=== PATIENT | female | born 1945 | race Caucasian/White ===

== ENCOUNTER 2016-07-11 16:26 | Inpatient (IN) | payer MEDICARE, MEDICAID ==
[~2016-07-11] VITALS: Ht 167.6 cm; Wt 60.1 kg
[~2016-07-11 16:26] MED LIST: /PANT40TA PO; /SUCR1TA PO; /WARF5TA OR; CALCTAB22 PO; CARV6.25 OR; FURO40TA2 OR; IRON28TA PO; LEVOXYL25 MCG OR; NEUR100C OR; PERC5TAB8 PO; VITAMIN B12 INJ IM
[2016-07-11] MEDS ORDERED: MULT1TAB10 PO (16:58)
[2016-07-11] MEDS ORDERED: MIDO25TA PO (16:58)
[2016-07-11] MEDS ORDERED: PLAV75TA38 PO (16:58)
[2016-07-11] MEDS ORDERED: SYNT112T2 PO (16:58)
[2016-07-11] MEDS ORDERED: VITA200028 PO (16:58)
[2016-07-11] MEDS ORDERED: ZOCO10TA PO (16:58)
[2016-07-11] MEDS ORDERED: NITR4TASL SL (16:58)
[2016-07-11] MEDS ORDERED: FERR325T3 PO (16:58)
[2016-07-11] MEDS ORDERED: [UNRECOGNIZED DRUG - CODE] PO (16:58)
[2016-07-11] MEDS ORDERED: LASI20TA PO (16:58)
[2016-07-11 19:33] LABS: BASO % 0.4 % (0.0-1.0); EOS # 0.1 K/mm3 (0.0-0.50); EOS % 0.9 % (0.0-3.0); LARGE UNSTAINED CELL # 0.1 K/mm3 (0.0-0.4); LARGE UNSTAINED CELL % 0.8 % (0.0-4.0); LYMPH # 1.6 K/mm3 (1.5-4.5); LYMPH % 14.1 % (24.0-44.0); MEAN CORPUSCULAR HEMOGLOBIN 31.3 pg (27.0-33.0); MEAN CORPUSCULAR HGB CONC 29.9 g/dl (32.0-36.5); MEAN CORPUSCULAR VOLUME 104.5 fl (80.0-96.0); MONO # 0.5 K/mm3 (0.0-0.8); MONO % 4.1 % (0.0-5.0); NEUTROPHILS # 8.8 K/mm3 (1.8-7.7); NEUTROPHILS % 79.8 % (36.0-66.0); PLATELET COUNT, AUTOMATED 234 k/mm3 (150-450); RED CELL DISTRIBUTION WIDTH 14.7 % (11.5-14.5)
[2016-07-11 19:55] LABS: ALBUMIN 1.6 GM/DL (3.2-5.2); ALBUMIN/GLOBULIN RATIO 0.57 (1.00-1.93); ALKALINE PHOSPHATASE 146 U/L (45-117); ALT/SGPT 34 U/L (12-78); ANION GAP 8 MEQ/L (8-16); AST/SGOT 21 U/L (15-37); BILIRUBIN,DIRECT 0.2 MG/DL (0.0-0.2); BILIRUBIN,TOTAL 0.5 MG/DL (0.2-1.0); BLOOD UREA NITROGEN 27 MG/DL (7-18); CALCIUM LEVEL 7.4 MG/DL (8.8-10.2); CARBON DIOXIDE LEVEL 20 MEQ/L (21-32); CHLORIDE LEVEL 116 MEQ/L (98-107); CREATININE FOR GFR 1.84 MG/DL (0.55-1.02); GLUCOSE, FASTING 68 MG/DL (80-110); POTASSIUM SERUM 4.4 MEQ/L (3.5-5.1); SODIUM LEVEL 144 MEQ/L (136-145); TOTAL PROTEIN 4.4 GM/DL (6.4-8.2)
[2016-07-11] MEDS ORDERED: BISACODYL 10 MG SUPP PR PRN (21:30)
[2016-07-11] MEDS ORDERED: ONDANSETRON 4MG/2ML VIAL (J2405) IV PRN (21:30)
[2016-07-11] MEDS ORDERED: ASPI81TAEC PO (21:47)
[2016-07-11] MEDS ORDERED: PANT40TA2 PO (21:47)
[2016-07-11] MEDS ORDERED: BACI500O74 EXT (21:47)
[2016-07-11] MEDS ORDERED: OXYC1TAB23 PO (21:47)
[2016-07-11] MEDS ORDERED: FOLI1TAB2 PO (21:47)
[2016-07-11] MEDS ORDERED: VITMTA PO (21:47)
[2016-07-11] MEDS ORDERED: PROC1INJ5 INJ (21:47)
[2016-07-11] MEDS ORDERED: CALCTAB52 PO (21:47)
[2016-07-11] MEDS ORDERED: GABA-282 PO (21:47)
[2016-07-11] MEDS ORDERED: SENN8.6C PO (21:47)
[2016-07-11] MEDS ORDERED: CYAN1000VL IM (21:47)
[2016-07-11] MEDS ORDERED: SUCR1TAB56 PO (21:47)
[2016-07-11 22:45] VITALS: BP 98/50
[2016-07-11] MEDS: PERCOCET 5MG/325MG TAB PO PRN (23:32)
[2016-07-12] MEDS: FUROSEMIDE injection 250 MG in D5W 225 ML IV SCH ×2 (00:09→21:08)
[2016-07-12] MEDS: LEVOTHYROXINE 0.112 MG TAB (112 MCG) PO SCH (05:43)
[2016-07-12] MEDS: PERCOCET 5MG/325MG TAB PO PRN ×2 (05:43→16:22)
[2016-07-12 07:01] LABS: BASO % 0.3 % (0.0-1.0); EOS # 0.1 K/mm3 (0.0-0.50); LARGE UNSTAINED CELL # 0.1 K/mm3 (0.0-0.4); LYMPH % 17.2 % (24.0-44.0); MEAN CORPUSCULAR HEMOGLOBIN 31.9 pg (27.0-33.0); MEAN CORPUSCULAR HGB CONC 31.2 g/dl (32.0-36.5); MEAN CORPUSCULAR VOLUME 102.4 fl (80.0-96.0); MONO # 0.5 K/mm3 (0.0-0.8); MONO % 4.6 % (0.0-5.0); NEUTROPHILS # 8.3 K/mm3 (1.8-7.7); NEUTROPHILS % 75.8 % (36.0-66.0); PLATELET COUNT, AUTOMATED 213 k/mm3 (150-450); RED CELL DISTRIBUTION WIDTH 14.8 % (11.5-14.5)
[2016-07-12 07:22] LABS: CALCIUM LEVEL 7.2 MG/DL (8.8-10.2); CREATININE FOR GFR 1.77 MG/DL (0.55-1.02); GLOMERULAR FILTRATION RATE 30.3 (>45); MAGNESIUM LEVEL 1.7 MG/DL (1.8-2.4); PHOSPHORUS LEVEL 3.3 MG/DL (2.5-4.9); POTASSIUM SERUM 4.1 MEQ/L (3.5-5.1)
[2016-07-12] MEDS ORDERED: SUCRALFATE 1 GM TAB PO SCH (07:30)
[2016-07-12 08:35] VITALS: BP 114/53
[2016-07-12] MEDS: GABAPENTIN 300 MG CAP PO SCH ×2 (08:38→21:07)
[2016-07-12] MEDS: ASPIRIN 81 MG ENTERIC TAB PO SCH (08:38)
[2016-07-12] MEDS: MAGNESIUM OXIDE 400 MG TAB (MAG-OX) PO SCH (08:38)
[2016-07-12] MEDS: PANTOPRAZOLE 40MG TAB (PROTONIX) PO SCH (08:38)
[2016-07-12] MEDS: CLOPIDOGREL 75 MG TAB PO SCH (08:38)
[2016-07-12] MEDS: FOLIC ACID 1 MG TAB PO SCH (08:39)
[2016-07-12] MEDS: POTASSIUM CHLORIDE 10 MEQ SR TABLET PO SCH (08:39)
[2016-07-12] MEDS: SENOKOT S TAB PO SCH ×2 (08:39→21:07)
[2016-07-12] MEDS: HEPARIN SOD (PORCINE) 5000 UNITS/ML VIAL SC SCH ×2 (08:39→21:07)
[2016-07-12] MEDS: MIDODRINE 2.5 MG TAB PO SCH ×3 (08:40→16:26)
[2016-07-12] MEDS ORDERED: MIDODRINE 2.5 MG TAB PO SCH (09:00)
[2016-07-12] MEDS ORDERED: FERROUS SULFATE 325MG TAB PO SCH (09:00)
--- NOTE | 2016-07-12 09:20 | HPE ---
DATE OF ADMISSION: 07/11/2016 PRIMARY CARE PROVIDER: Dr. Taz Echols STUDENT TRUCK DRIVER: Dr. Mann CHIEF COMPLAINT: Increasing generalized swelling and gaining 30 pounds weight over the past 3 weeks. PAST MEDICAL HISTORY: 1. Chronic kidney disease (CKD) stage III. 2. History of morbid obesity status post gastric bypass surgery twice in 2006 and 2007. 3. History of diabetes, now resolved after loss of weight. 4. Chronic hypotension on midodrine. 5. Chronic back pain. 6. Scoliosis. 7. Osteoporosis. 8. Spinal canal stenosis. 9. Coronary artery disease status post stents times two. 10. History of congestive heart failure and later cardiomyopathy. 11. Hypothyroid. 12. Hyperlipidemia. 13. Chronic anemia. HISTORY OF PRESENT ILLNESS: This is a 71-year-old female who was admitted to [facility] in June for dizziness, lightheadedness possibly related to her low blood pressure and discharged from the hospital on 06/29/2016. During the hospitalization, her diuretics were stopped because of low blood pressure and she went home without any diuretics. She started gaining fluid and her legs started swelling up. So she called her primary care provider and was restarted on low dose of Lasix 20 mg daily. However, she continued to gain weight and become more swollen with swelling involving not only her legs but her arms, fingers as well as face. Today, she went to see her passenger interline clerk, Dr. Mann and was found to have gained 30 pounds of weight over the past 3 weeks. So the patient was sent to the emergency room for evaluation. In the emergency department (ED), patient was found to have anasarca with usually edema of the legs, which has been causing her difficulty walking, causing her increased back pain. Patient was also noted to have a creatinine 1.8, which was elevated from her baseline of around 1.4 to 1.5. So the patient is being admitted for anasarca, acute kidney injury (MARTINA) and CKD, and possible congestive heart failure. PAST SURGICAL HISTORY: 1. Cardiac stents times two. 2. Gastric bypass surgery times two in 2006 and 2007. 3. Right ovarian cystectomy, exploratory laparotomy in 1970s. 4. Appendectomy in 1969's. 5. Tonsillectomy. 6. Bilateral lower leg stents. 7. Left shoulder rotator cuff repair. 8. Left carpal tunnel surgery. 9. Open reduction, internal fixation (ORIF) of left wrist. 10. Left hip replacement. 11. Left femur surgery. 12. Left knee replacement. 13. ORIF of left ankle. 14. ORIF of right wrist. SOCIAL HISTORY: Ex-smoker, quit about 10 years ago. No history of alcohol or drug abuse. ALLERGIES: To LATEX. HOME MEDICATIONS: - aspirin 81 mg daily - clopidogrel 75 mg daily - cyanocobalamin 1000 mcg once a month - calcium with vitamin D 1 tablet by mouth twice a day - ergocalciferol 2000 units by mouth daily - Procrit 10,000 units once a month - ferrous sulfate 325 mg by mouth twice a day - folic acid 1 mg by mouth daily - Lasix 20 mg daily - gabapentin 300 mg by mouth twice a day - Synthroid 112 mcg by mouth daily - midodrine 2.5 mg by mouth daily - multivitamins 1 tablet by mouth twice a day - nitroglycerin 0.4 mg sublingual as needed, angina - oxycodone/acetaminophen 5/325 1 tablet by mouth twice a day as needed, pain - pantoprazole 40 mg by mouth daily - Zemplar 1 mcg by mouth daily - senna 2 capsules by mouth daily - simvastatin 10 mg by mouth at bedtime - sucralfate 1 gm by mouth before food and nightly FAMILY HISTORY: Noncontributory. REVIEW OF SYSTEMS: All 10-point review of systems are negative except as mentioned in history of present illness (HPI). PHYSICAL EXAMINATION: VITAL SIGNS: Blood pressure 118/53. Pulse 84. Pulse oximetry 97% in room air. Temperature 97.5. Respiratory rate 18. GENERAL: Patient awake, alert, oriented times three, sitting up in bed, in no acute distress. HEENT: Normocephalic, atraumatic. Moist mucous membranes. Anicteric eyes. CHEST: Clear to auscultation. CARDIOVASCULAR: S1, S2, regular. ABDOMEN: Soft, nontender. Bowel sounds present. EXTREMITIES: 4+ bipedal extending from the ankles to the thighs, also edema of the arms, forearms and hand and fingers. LABORATORY DATA: WBC 11, hemoglobin 10.1, platelets 234. Sodium 144, potassium 4.4, chloride 116, bicarbonate 20, BUN 27, creatinine 1.84, glucose 68, calcium 7.4. Liver function test normal. Albumin 1.6. BNP 42. TSH 2.59. Chest x-ray: No acute cardiopulmonary process. ASSESSMENT AND PLAN: This is a 71-year-old female admitted for anasarca, acute on chronic renal failure. Plan: 1. Anasarca possibly related to a combination of hyperalbuminemia as well as underlying congestive heart failure. Although, patient has a normal BNP, so possibly to have right heart failure is more. We will start the patient on Lasix infusion at 10 mg/hr. We will also request an echocardiogram, 2 gram sodium diet, fluid restriction 1.5 liters per day. 2. Chronic hypotension. Patient usually runs blood pressure in the 80s to 90s for years. Patient is on midodrine. We will increase the dose of midodrine in the hospital to allow us to do aggressive diuresis. 3. Acute kidney injury and chronic kidney disease possibly related to fluid overload. We will continue with diuresis. We will consult nephrology. 4. Hypothyroid. We will continue with Synthroid. 5. Chronic back pain related to scoliosis, osteoporosis and spinal canal stenosis. We will continue with gabapentin, Percocet as needed. 6. Coronary artery disease and peripheral artery disease. We will continue with aspirin, clopidogrel and statins. 7. Hyperlipidemia. We will continue with statin. 8. Chronic anemia due to chronic kidney disease. We will continue with ferrous sulfate. Patient is on Epogen once a month. 9. History of obesity with gastric bypass surgery. Stable at this point. We will continue with pantoprazole and sucralfate. 10. History of diabetes, now resolved after loss weight and gastric bypass surgery. We will continue to monitor blood sugars. 11. Deep venous thrombosis (DVT) prophylaxis has been ordered. 12. Gastrointestinal (GI) prophylaxis has been ordered.
[2016-07-12] MEDS ORDERED: MAG SULF 1GM/100ML (MAG RUN) 1 GM in APPROPRIATE DILUENT 1 EA IV ONE (10:30)
[2016-07-12 11:04] VITALS: BP 100/52
--- NOTE | 2016-07-12 11:46 | CR ---
DATE OF CONSULTATION: 07/12/2016 REQUESTING PHYSICIAN: Smooth Marino MD CONSULTING PHYSICIAN: Ingrid Mann MD REASON FOR CONSULTATION: Management of anasarca in a patient with chronic kidney disease. CHIEF COMPLAINT: The patient was sent from nephrology office yesterday after gaining 28 pounds in between the office visits, generalized swelling of the body , and hypotension. HPI: Leatha Gomez is a 71-year-old female with past medical history of chronic kidney disease stage III with a baseline creatinine of around 1.5-1.6, history of diabetes and congestive heart failure (CHF), multiple other comorbidities, as mentioned below, who was seen in the nephrology office yesterday. She was found to have significant weight gain of around 28 pounds since she was last seen in the office. Of note, the patient was admitted at [facility] from 06/22/2016 to 06/24/2016 for hypotension. Subsequently, she was transferred to [facility] on 06/24/2016, and she was found to have orthostatic hypotension over there. Extensive workup was negative except that she was found to have severe peripheral vascular disease. Her Lasix was stopped, and she was placed on midodrine. When the patient came back home, she started gaining weight. When she was seen in the office yesterday, she had significant fluid gain, anasarca, inability to move around because of the swelling of the legs, and with soft blood pressures in the clinic; so, she was sent to the emergency room for further management and evaluation and diuresis on the telemetry floor. The patient was admitted yesterday under the hospitalist service. She was started on intravenous (IV) Lasix drip. Nephrology service was called for further help in the management of anasarca. PAST MEDICAL HISTORY: Past medical history of: 1. Chronic kidney disease stage III, baseline creatinine of around 1.5. 2. History of morbid obesity, status post gastric bypass surgery twice in 2006 and 2007. 3. History of diabetes mellitus type 2, which is diet-controlled at this time. 4. Recent hypotension and orthostatic requiring midodrine. 5. Chronic back pain. 6. Scoliosis. 7. Spinal canal stenosis. 8. Coronary artery disease, status post stents. 9. History of cardiomyopathy. 10. Hypothyroidism. 11. Hyperlipidemia. 12. Chronic anemia. PAST SURGICAL HISTORY: 1. Status post gastric bypass surgery in 2006 and 2007. 2. Status post cardiac stents. 3. Status post right ovarian cystectomy and exploratory laparotomy in . 4. Status post appendectomy. 5. Status post tonsillectomy. 6. Status post bilateral lower extremity stents. 7. Status post left shoulder rotator cuff repair. 8. Status post left carpal tunnel surgery. 9. Status post open reduction and internal fixation of left wrist. 10. Status post left hip replacement. 11. Status post left knee replacement. 12. Status post left femur surgery. 13. Status post open reduction and internal fixation of the left ankle. 14. Status post right wrist surgery. ALLERGIES: The patient is allergic to LATEX. HOME MEDICATIONS: The patient's home medications included: - aspirin 81 mg by mouth daily - calcium tablet one tablet by mouth twice a day - Plavix 75 mg by mouth daily - vitamin B12 1000 mcg once a month - Procrit 10,000 units once a month - vitamin B2 2000 units by mouth daily - iron tablet 325 mg by mouth twice a day - folic acid 1 mg by mouth daily - Lasix 20 mg by mouth daily - gabapentin 300 mg by mouth twice a day - levothyroxine 112 mcg by mouth daily - midodrine 2.5 mg by mouth daily - multivitamin - nitroglycerin as needed - oxycodone as needed - Protonix 40 mg by mouth daily - Zemplar 1 mcg by mouth daily - senna two tablets by mouth daily - Zocor 10 mg nightly - sucralfate 1 gram by mouth with meals Current inpatient medications: Inpatient medications include: - intravenous (IV) Lasix infusion at 10 mg per hour - aspirin 81 mg - Dulcolax as needed - Plavix 75 mg - Colace one tablet twice a day - iron tablet one tablet by mouth twice a day - folic acid 1 mg by mouth daily - gabapentin 300 mg twice a day - heparin subcutaneous every 12 hours - levothyroxine 112 mcg daily - magnesium 400 mg by mouth daily - midodrine 2.5 mg by mouth three times a day - Zofran 4 mg IV as needed - oxycodone as needed - Protonix 40 mg by mouth daily - potassium chloride 40 mEq by mouth daily - Zocor 10 mg nightly - sucralfate 1 gram by mouth with meals FAMILY HISTORY: No significant family history of end-stage renal disease requiring hemodialysis. SOCIAL HISTORY: The patient lives at home. She quit smoking about 10 years ago. She denies any history of alcohol abuse or drug abuse. REVIEW OF SYSTEMS: CONSTITUTIONAL: The patient denies any fever, chills, and rigors. EYES: She denies any blurry vision or double vision. Ears, nose, and throat (ENT): She denies any ear discharge, dysphagia, or odynophagia. CARDIOVASCULAR: She denies any palpitations or chest pain. RESPIRATORY: She reports shortness of breath on moderate exertion. She denies any cough or wheezing. GASTROINTESTINAL (GI): She reports decreased appetite. Otherwise, she denies any nausea, vomiting, pain abdomen. GENITOURINARY: She denies any dysuria or hematuria. MUSCULOSKELETAL: She reports peripheral vascular disease and dry gangrene. CENTRAL NERVOUS SYSTEM (GANG INVESTIGATOR): Denies seizure or weakness PSYCHIATRIC:Denies depression or anxiety. SKIN: Denies any rashes All other ROS is negative PHYSICAL EXAMINATION: Gen: Lying in bed in no apparent distress. Vital: BP110/60,P64,RR14,Sat96% HEENT:EOMI,PERRLA,Moist membranes NECK: supple, no JVD CVS: S1-S2,RR,No MRG,+anasarca Chest: CTA BL, BL equal air entry Abd: Soft,+BS,Non tenber,+abdominal wall edema Ext: No clubbing or cyanosis,3+edema of legs GANG INVESTIGATOR: No focal deficit,Power 5/5 all ext SKIN: No rashes or ulcer Psych: Normal mood and affect LABORATORY REVIEW: CBC showed a WBC of 11, hemoglobin is 9.5, platelets are 213. BMP showed sodium 144, potassium 4.1, chloride 116, bicarbonate 21, BUN is 27, creatinine is 1.7 (it was 1.8 yesterday), calcium is 7.2, magnesium is 1.7, phosphorus is 3.3, albumin is 1.6, total bilirubin is 0.5. IMAGING: An x-ray of the chest was done yesterday, which does not show any acute infiltrates at this time. ASSESSMENT: A 71-year-old female with past medical history of chronic kidney disease stage III and hypotension admitted this time because of anasarca and acute kidney injury superimposed on chronic kidney disease. PLAN: 1. Anasarca. Anasarca is secondary to holding the patient's diuretics, history of congestive heart failure, and hypoalbuminemia. The patient has already been started on Lasix taper 10 mg per hour. Continue the current rate. The patient is responding well. Continue to monitor daily intake and output. 2. Hypotension. The patient's blood pressure is in 100s right now. Continue the current diuresis at this time. Continue current dose of midodrine 2.5 mg by mouth three times a day. The patient needs an echocardiogram, as well. 3. Acute kidney injury superimposed on chronic kidney disease stage III. The patient's baseline creatinine is around 1.5. Acute kidney injury most likely may be secondary to volume overload and cardiorenal syndrome. Continue the diuresis at this time. 4. Hypothyroidism. Continue current dose of levothyroxine and check thyroid-stimulating hormone (TSH) levels. 5. Anemia secondary to chronic kidney disease. The patient takes Procrit at home. Hemoglobin is suboptimal. I will check the iron levels and give Aranesp as needed. 6. Hypomagnesemia. I have ordered a dose of magnesium sulfate 1 gram IV times one dose. 7. Hypocalcemia. Hypocalcemia is secondary to hypoalbuminemia. I will check the ionized calcium level tomorrow. If needed, calcium will be repleted IV. Thank you for involving us in the care of this patient. We shall be happy to follow the patient along with you tomorrow morning. ODILIA
--- NOTE | 2016-07-12 12:45 | IPNPDOC ---
Subjective Date Seen The patient was seen on 07/12/16. Subjective Chief Complaint/HPI The patient is a 71-year-old female admitted with a reason for visit of Anasarca ; Chf Excerbation. General: Denies: Chills, Night Sweats Constitutional: Denies: Chills, Fever Eyes: Denies: Pain, Vision change ENT: Denies: Ear Pain, Head Aches Skin: Denies: Lesions, Rash Pulmonary: Denies: Cough, Dyspnea Cardiovascular: Denies: Chest Pain, Palpitations Gastrointestinal: Denies: Nausea, Vomiting Genitourinary: Reports: Frequency, Denies: Dysuria, Hematuria, Incontinence Hematologic: Denies: Bleeding Excessively, Bruising Musculoskeletal: Denies: Back Pain, Neck Pain Objective Physical Examination General Exam: Positive: Alert, Cooperative, No Acute Distress ENT Exam: Negative: Atraumatic, Mucous membr. moist/pink Neck Exam: Negative: JVD Chest Exam: Positive: Clear to auscultation, Normal air movement Heart Exam: Positive: Normal S1, Normal S2, Rate Normal Abdomen Exam: Positive: Soft, Negative: Tenderness Extremity Exam: Positive: Swelling (3+ b/l L/E edema) Assessment /Plan Plan/VTE VTE Prophylaxis Ordered?: Yes Plan Anasarca likely secondary to decompensated congestive heart failure, hypoalbuminemia The patient is on a Lasix infusion at 10 mg/hr. Currently with a net negative 1.7L 2D echocardiogram pending Fluid restricted diet Monitor I's and O's Daily weights We will continue to monitor the patient's volume status Chronic hypotension. Patient has a baseline systolic blood pressure in the 80s to 90s according to her history However she has been running a systolic blood pressure in the 100s here Continue Midodrine 2.5 mg 3 times a day Acute kidney injury superimposed on chronic kidney disease Likely cardiorenal syndrome from decompensated CHF, hypoalbuminemia Baseline serum creatinine around 1.5 Serum creatinine improved this a.m. Hold nephrotoxins Nephrology on board Hypothyroid Continue Synthroid. Chronic back pain 2/2 Scoliosis, Osteoporosis and Spinal canal Stenosis Continue with gabapentin, percocet prn Coronary artery disease and peripheral artery disease. Continue aspirin, clopidogrel and statins. Hyperlipidemia Continue statin. Chronic anemia due to chronic kidney disease Continue with ferrous sulfate Epogen QMonthly History of obesity with gastric bypass surgery Continue with PPI and sucralfate. Deep venous thrombosis (DVT) prophylaxis Heparin SC Dispo: We will continue the patient on a Lasix infusion in an effort to optimize the patient's volume status with assistance from the nephrology team. VS, I&O, [facility] Vital Signs/I&O Vital Signs Date Time Temp Pulse Resp B/P Pulse Ox O2 Delivery O2 Flow Rate FiO2 07/12/16 11:04 97.5 79 18 100/52 98 Room Air I&O- Last 24 Hours up to 6 AM 07/12/16 05:59 Intake Total 120 ml Output Total 0 ml Balance 120 ml Laboratory Data 24H LABS Laboratory Tests 2 07/11/16 19:19: Aspartate Amino Transf (AST/SGOT) 21, Alanine Aminotransferase (ALT/SGPT) 34, Alkaline Phosphatase 146H, Total Bilirubin 0.5, Direct Bilirubin 0.2, Albumin 1.6L, Albumin/Globulin Ratio 0.57L, Anion Gap 8, B-Type Natriuretic Peptide 42.1 , White Blood Count 11.0H, Red Blood Count 3.21L, Hemoglobin 10.1L, Hematocrit 33.6L, Mean Corpuscular Volume 104.5H, Mean Corpuscular Hemoglobin 31.3, Mean Corpuscular Hemoglobin Concent 29.9L, Red Cell Distribution Width 14.7H, Platelet Count 234, Neutrophils (%) (Auto) 79.8H, Lymphocytes (%) (Auto) 14.1L, Monocytes (%) (Auto) 4.1, Eosinophils (%) (Auto) 0.9, Basophils (%) (Auto) 0.4, Neutrophils # (Auto) 8.8H, Lymphocytes # (Auto) 1.6, Monocytes # (Auto) 0.5, Eosinophils # (Auto) 0.1, Basophils # (Auto) 0.0, Calcium Level 7.4L, Creatine Kinase MB 2.0, Creatine Kinase MB Relative Index 3.33, Glomerular Filtration Rate 29.0L, Large Unclassified Cells # 0.1, Large Unclassified Cells % 0.8, Thyroid Stimulating Hormone (TSH) 2.590, Total Creatine Kinase 60, Total Protein 4.4L, Troponin I < 0.02 07/12/16 06:26: Anion Gap 7L, White Blood Count 11.0H, Red Blood Count 2.97L, Hemoglobin 9.5L, Hematocrit 30.4L, Mean Corpuscular Volume 102.4H, Mean Corpuscular Hemoglobin 31.9, Mean Corpuscular Hemoglobin Concent 31.2L, Red Cell Distribution Width 14.8H, Platelet Count 213, Neutrophils (%) (Auto) 75.8H, Lymphocytes (%) (Auto) 17.2L, Monocytes (%) (Auto) 4.6, Eosinophils (%) (Auto) 1.0, Basophils (%) (Auto ) 0.3, Neutrophils # (Auto) 8.3H, Lymphocytes # (Auto) 2.0, Monocytes # (Auto) 0.5, Eosinophils # (Auto) 0.1, Basophils # (Auto) 0.0, Calcium Level 7.2L, Glomerular Filtration Rate 30.3L, Large Unclassified Cells # 0.1, Large Unclassified Cells % 1.0, Blood Urea Nitrogen 27H, Creatinine 1.77H, Sodium Level 144, Potassium Level 4.1, Chloride Level 116H, Carbon Dioxide Level 21, Magnesium Level 1.7L, Phosphorus Level 3.3 07/12/16 10:19: Urine Amorphous Sediment , Urine Appearance CLEAR, Urine Color STRAW, Urine pH 5.0, Urine Specific [place] 1.004, Urine Protein NEGATIVE, Urine Glucose (UA) NEGATIVE, Urine Ketones NEGATIVE, Urine Urobilinogen 0.2, Urine Bilirubin NEGATIVE, Urine Leukocyte Esterase NEGATIVE, Urine Bacteria (Auto) 1+H, Urine Blood NEGATIVE, Urine Calcium Carbonate Cryst(Auto) , Urine Calcium Oxalate Cryst (Auto) , Urine Calcium Phosphate [place] (Auto) , Urine Cellular Casts , Urine Cystine Crystals , Urine Granular Casts (Auto) , Urine Hyaline Casts (Auto ) 0, Urine Leucine Crystals , Urine Mucus (Auto) SMALL, Urine Nitrite NEGATIVE, Urine Oval Fat Bodies (Auto) , Urine RBC (Auto) 2, Urine Random Creatinine < 13.0, Urine Random Total Protein 6.8, Urine Renal Epithelial Cells , Urine Sperm (Auto) , Urine Squamous Epithelial Cells 0, Urine Transitional Epithelial Cells , Urine Trichomonas (Auto) , Urine Triple Phosphate Cryst (Auto) , Urine Tyrosine Crystals , Urine Uric Acid Crystals (Auto) , Urine WBC (Auto) 1, Urine Waxy Casts (Auto) , Urine Yeast-Like Cells (Auto) CBC/BMP Laboratory Tests 07/11/16 19:19 Red Blood Count 3.21 L, Mean Corpuscular Volume 104.5 H, Mean Corpuscular Hemoglobin 31.3, Mean Corpuscular Hemoglobin Concent 29.9 L, Red Cell Distribution Width 14.7 H, Neutrophils (%) (Auto) 79.8 H, Lymphocytes (%) (Auto ) 14.1 L, Monocytes (%) (Auto) 4.1, Eosinophils (%) (Auto) 0.9, Basophils (%) ( Auto) 0.4, Neutrophils # (Auto) 8.8 H, Lymphocytes # (Auto) 1.6, Monocytes # ( Auto) 0.5, Eosinophils # (Auto) 0.1, Basophils # (Auto) 0.0 07/12/16 06:26 Red Blood Count 2.97 L, Mean Corpuscular Volume 102.4 H, Mean Corpuscular Hemoglobin 31.9, Mean Corpuscular Hemoglobin Concent 31.2 L, Red Cell Distribution Width 14.8 H, Neutrophils (%) (Auto) 75.8 H, Lymphocytes (%) (Auto ) 17.2 L, Monocytes (%) (Auto) 4.6, Eosinophils (%) (Auto) 1.0, Basophils (%) ( Auto) 0.3, Neutrophils # (Auto) 8.3 H, Lymphocytes # (Auto) 2.0, Monocytes # ( Auto) 0.5, Eosinophils # (Auto) 0.1, Basophils # (Auto) 0.0, Calcium Level 7.2 L BEN PERDUE MD Jul 12, 2016 12:45
[2016-07-12 15:56] VITALS: BP 90/50
--- NOTE | 2016-07-12 16:39 | REP ---
Abdominal right upper quadrant ultrasound: The gallbladder is distended measuring up to 5 cm transverse diameter. This is compatible with hydrops by size criteria. There is cholelithiasis and biliary sludge in the gallbladder. There is no gallbladder wall thickening, the wall measures 2.4 mm thickness. Balloon the common biliary duct is dilated measuring up to 9.2 mm. There is no intrahepatic biliary duct dilatation. Ultrasound is insensitive in identifying calculi within the common duct. I would recommend MRI for this assessment if felt clinically indicated. The hepatic parenchyma is acoustically dense compatible with hepato steatosis. No focal hepatic masses are identified. The visualized portion of the pancreatic head is unremarkable. The right kidney is normal size measuring 9.2 cm craniocaudad length. There is no right renal hydronephrosis, calculus, mass or cyst. Impression: Distended gallbladder compatible with hydrops, containing gallbladder calculi and biliary sludge, however there is no gallbladder wall thickening or pericholecystic fluid. There is no intrahepatic biliary duct dilatation, however, the common duct is dilated measuring 9.2 mm. Ultrasound is insensitive for identifying common duct biliary calculi. If clinically indicated, consider MRI for this assessment. Hepatosteatosis. Signed by Nathan Hsu MD 07/12/2016 04:31 P
--- NOTE | 2016-07-12 18:27 | ECGEPIP ---
Stationary ECG Study [facility] - ED Test Date: 2016-07-11 Pat Name: JOSE COOMBS Department: Room: - Gender: F Pediatric Cns: rn : 1945 Requested By: Kalen Tolbert Order Number: [id number] Reading MD: Kalen Bess Measurements Intervals [place] Rate: 74 P: 32 ND: 147 QRS: 45 QRSD: 81 T: 26 QT: 384 QTc: 427 Interpretive Statements SINUS RHYTHM LOW QRS VOLTAGE NO PRIORS Electronically Signed On 07-12-2016 18:26:58 EDT by Kalen Bess
[2016-07-12 20:02] VITALS: BP 108/60
[2016-07-12] MEDS: SIMVASTATIN 10 MG TAB PO SCH (21:07)
[2016-07-12 23:56] VITALS: BP 97/68
[2016-07-13 04:20] VITALS: BP 91/53
[2016-07-13] MEDS: LEVOTHYROXINE 0.112 MG TAB (112 MCG) PO SCH (05:39)
[2016-07-13 05:52] LABS: BASO % 0.3 % (0.0-1.0); EOS # 0.1 K/mm3 (0.0-0.50); EOS % 1.1 % (0.0-3.0); LARGE UNSTAINED CELL # 0.1 K/mm3 (0.0-0.4); LARGE UNSTAINED CELL % 1.1 % (0.0-4.0); LYMPH # 1.7 K/mm3 (1.5-4.5); LYMPH % 20.2 % (24.0-44.0); MEAN CORPUSCULAR HEMOGLOBIN 31.8 pg (27.0-33.0); MEAN CORPUSCULAR HGB CONC 31.3 g/dl (32.0-36.5); MEAN CORPUSCULAR VOLUME 101.6 fl (80.0-96.0); MONO # 0.4 K/mm3 (0.0-0.8); MONO % 4.2 % (0.0-5.0); NEUTROPHILS # 6.1 K/mm3 (1.8-7.7); NEUTROPHILS % 73.2 % (36.0-66.0); PLATELET COUNT, AUTOMATED 219 k/mm3 (150-450); RED CELL DISTRIBUTION WIDTH 14.9 % (11.5-14.5); WHITE BLOOD COUNT 8.3 K/mm3 (4.0-10.0)
[2016-07-13 06:13] LABS: CALCIUM LEVEL 6.9 MG/DL (8.8-10.2); CREATININE FOR GFR 1.63 MG/DL (0.55-1.02); GLOMERULAR FILTRATION RATE 33.3 (>45); MAGNESIUM LEVEL 1.7 MG/DL (1.8-2.4); PERCENT SATURATION 48.8 % (13.2-37.4)
[2016-07-13 06:22] LABS: POTASSIUM SERUM 3.6 MEQ/L (3.5-5.1)
[2016-07-13 07:22] VITALS: BP 108/53
[2016-07-13] MEDS: HEPARIN SOD (PORCINE) 5000 UNITS/ML VIAL SC SCH ×2 (08:13→21:44)
[2016-07-13] MEDS: POTASSIUM CHLORIDE 10 MEQ SR TABLET PO SCH ×2 (08:14→21:44)
[2016-07-13] MEDS: PANTOPRAZOLE 40MG TAB (PROTONIX) PO SCH (08:14)
[2016-07-13] MEDS: MIDODRINE 2.5 MG TAB PO SCH ×3 (08:14→16:39)
[2016-07-13] MEDS: FOLIC ACID 1 MG TAB PO SCH (08:14)
[2016-07-13] MEDS: ASPIRIN 81 MG ENTERIC TAB PO SCH (08:14)
[2016-07-13] MEDS: CLOPIDOGREL 75 MG TAB PO SCH (08:15)
[2016-07-13] MEDS: FERROUS SULFATE 325MG TAB PO SCH (08:15)
[2016-07-13] MEDS: SENOKOT S TAB PO SCH ×2 (08:15→21:44)
[2016-07-13] MEDS: GABAPENTIN 300 MG CAP PO SCH ×2 (08:15→21:44)
[2016-07-13] MEDS: MAGNESIUM OXIDE 400 MG TAB (MAG-OX) PO SCH (08:15)
[2016-07-13] MEDS ORDERED: MAGNESIUM OXIDE 400 MG TAB (MAG-OX) PO ONE (09:00)
[2016-07-13] MEDS ORDERED: CALCIUM GLUCONATE 1,000 MG in D5W MINI-BAG PLUS 100 ML IV ONE (09:30)
[2016-07-13] MEDS: PERCOCET 5MG/325MG TAB PO PRN ×2 (10:48→23:00)
--- NOTE | 2016-07-13 11:01 | IPNPDOC ---
Subjective Date Seen The patient was seen on 07/13/16. Subjective Chief Complaint/HPI The patient is a 71-year-old female admitted with a reason for visit of Anasarca ; Chf Excerbation. General: Denies: Chills, Night Sweats Constitutional: Denies: Chills, Fever Eyes: Denies: Pain, Vision change ENT: Denies: Head Aches Skin: Denies: Lesions, Rash Pulmonary: Denies: Cough, Dyspnea Cardiovascular: Denies: Chest Pain, Palpitations Gastrointestinal: Denies: Nausea, Vomiting Genitourinary: Denies: Dysuria, Frequency Hematologic: Denies: Bleeding Excessively, Bruising Objective Physical Examination General Exam: Positive: Alert, Cooperative, No Acute Distress ENT Exam: Negative: Atraumatic, Mucous membr. moist/pink Neck Exam: Negative: JVD Chest Exam: Positive: Clear to auscultation, Normal air movement Heart Exam: Positive: Normal S1, Normal S2, Rate Normal Abdomen Exam: Positive: Soft, Negative: Tenderness Extremity Exam: Positive: Swelling (3+ b/l L/E edema) Assessment /Plan Plan/VTE VTE Prophylaxis Ordered?: Yes Plan Anasarca likely secondary to decompensated congestive heart failure, hypoalbuminemia The patient is on a Lasix infusion at 10 mg/hr. Currently with a net negative 5.2L since admission 2D echocardiogram pending Fluid restricted diet Monitor I's and O's Daily weights Patient's edema does appear to be significantly improving We will continue to monitor the patient's volume status Chronic hypotension. Patient has a baseline systolic blood pressure in the 80s to 90s according to her history However she has been running a systolic blood pressure in the 100s here Continue Midodrine 2.5 mg 3 times a day Acute kidney injury superimposed on chronic kidney disease Likely cardiorenal syndrome from decompensated CHF, hypoalbuminemia Baseline serum creatinine around 1.5 Serum creatinine improved this a.m. Hold nephrotoxins Nephrology on board Hypothyroid Continue Synthroid. Chronic back pain 2/2 Scoliosis, Osteoporosis and Spinal canal Stenosis Continue with gabapentin, percocet prn Coronary artery disease and peripheral artery disease. Continue aspirin, clopidogrel and statin. Hyperlipidemia Continue statin. Chronic anemia due to chronic kidney disease Continue with ferrous sulfate Epogen QMonthly History of obesity with gastric bypass surgery Continue with PPI and sucralfate. Deep venous thrombosis (DVT) prophylaxis Heparin SC Dispo: We will continue the patient on a Lasix infusion in an effort to optimize the patient's volume status with assistance from the nephrology team. VS, I&O, 24H, Fishbone Vital Signs/I&O Vital Signs Date Time Temp Pulse Resp B/P Pulse Ox O2 Delivery O2 Flow Rate FiO2 07/13/16 10:48 20 07/13/16 07:22 98.0 71 108/53 97 Room Air I&O- Last 24 Hours up to 6 AM 07/13/16 06:00 Intake Total 620 ml Output Total 4375 ml Balance -3755 ml Laboratory Data 24H LABS Laboratory Tests 2 07/13/16 05:33: Anion Gap 8, White Blood Count 8.3, Red Blood Count 2.87L, Hemoglobin 9.1L, Hematocrit 29.1L, Mean Corpuscular Volume 101.6H, Mean Corpuscular Hemoglobin 31.8, Mean Corpuscular Hemoglobin Concent 31.3L, Red Cell Distribution Width 14.9H, Platelet Count 219, Neutrophils (%) (Auto) 73.2H, Lymphocytes (%) (Auto) 20.2L, Monocytes (%) (Auto) 4.2, Eosinophils (%) (Auto) 1.1, Basophils (%) (Auto ) 0.3, Neutrophils # (Auto) 6.1, Lymphocytes # (Auto) 1.7, Monocytes # (Auto) 0.4, Eosinophils # (Auto) 0.1, Basophils # (Auto) 0.0, Blood Urea Nitrogen 25H, Creatinine 1.63H, Sodium Level 145, Potassium Level 3.6#, Chloride Level 115H, Carbon Dioxide Level 22, Calcium Level 6.9L, Ferritin 186, Glomerular Filtration Rate 33.3L, Iron Level 63, Large Unclassified Cells # 0.1, Large Unclassified Cells % 1.1, Magnesium Level 1.7L, Total Iron Binding Capacity 129L , Transferrin % Saturation 48.8H, Whole Blood Ionized Calcium 4.2L CBC/BMP Laboratory Tests 07/12/16 18:06 07/13/16 05:33 Calcium Level 6.9 L, Red Blood Count 2.87 L, Mean Corpuscular Volume 101.6 H, Mean Corpuscular Hemoglobin 31.8, Mean Corpuscular Hemoglobin Concent 31.3 L, Red Cell Distribution Width 14.9 H, Neutrophils (%) (Auto) 73.2 H, Lymphocytes ( %) (Auto) 20.2 L, Monocytes (%) (Auto) 4.2, Eosinophils (%) (Auto) 1.1, Basophils (%) (Auto) 0.3, Neutrophils # (Auto) 6.1, Lymphocytes # (Auto) 1.7, Monocytes # (Auto) 0.4, Eosinophils # (Auto) 0.1, Basophils # (Auto) 0.0 BEN PERDUE MD Jul 13, 2016 11:01
[2016-07-13 12:00] VITALS: BP 110/55
--- NOTE | 2016-07-13 13:10 | REP ---
Portable chest: Comparison is 07/09/2016. The lung pizano are clear. The cardiac size is normal. The julien, mediastinum, and bony thorax are unremarkable. Impression: Negative portable chest. There is an old fracture of the right humeral neck. Signed by Nathan Hsu MD 07/13/2016 01:01 P
[2016-07-13 16:00] VITALS: BP 101/50
--- NOTE | 2016-07-13 18:53 | ECHO ---
DATE OF PROCEDURE: 07/13/2016 AGE: 71 GENDER: Female HEIGHT: 66 inches WEIGHT: 154 pounds BODY SURFACE AREA: 1.79 m2. Inpatient Progressive Care Unit (PCU) Room 2336. REFERRING PHYSICIAN: Dr. Krissy Hall INDICATION: Heart failure (unspecified). MEASUREMENTS: 2-D measurements: RV - 3.4 cm LV - 5.0 cm Septum 0.8 cm Posterior wall 0.8 cm Aortic root 3.6 cm LA - 3.8 cm LVEF 60% Doppler measurements: AV - 0.98 /sec LVOT - 0.8 m/sec LVOT diameter- 2.1 cm MVE - 53 A- 62 E/A ratio- 0.9 Early mitral deceleration time: 292 m/s E-Prime 5.5 A-Prime 8 E/E Prime ratio- 9.8 RVSP - 35 mmHg IVC - 2.0 cm COMMENTS: Normal sinus rhythm without intraventricular conduction disturbance. Technically difficult study but diagnostically useful information was still obtained. Left atrium was upper limits of normal. Normal left ventricular size. Right heart chamber sizes were normal. Left ventricle (LV) wall thickness was normal. On real-time imaging from the parasternal and apical projections wall motion was symmetrical and normal. Marginally thickened mitral annulus but normal leaflet thickness and excursion with no posterior systolic buckling. Three equal size aortic cusps with marginally thickened cusp edges but adequate cusp separation. Normal aortic root size. No apparent intracardiac mass or pericardiac effusion. Color flow Doppler study taken from the parasternal and apical projection showed very eccentric aortic insufficiency with some mild mitral insufficiency and mild tricuspid insufficiency. Guided continuous wave Doppler of her aortic valve showed a normal peak systolic velocity against left ventricle (LV) outflow tract obstruction. Pulsed and continuous wave Doppler of her LV inflow tract taken from the apical four-chamber projection showed normal diastolic filling velocities against mitral stenosis. There was slightly more atrial rather than early passive atrial dependent versus early passive filling of the left ventricle. A degree of LV diastolic dysfunction was confirmed by a prolonged early mitral deceleration time and tissue Doppler of her mitral annulus. Her current estimated mean left atrial pressure however was within normal limits. Guided and continuous wave Doppler of her tricuspid valve allowed our estimation of her pulmonary trunk showed a normal peak systolic velocity against RV outflow tract obstruction. His pulmonary artery acceleration time was normal against an elevated pulmonary vascular resistance. Guided continuous wave Doppler of his tricuspid valve allowed our estimation of his right ventricular systolic pressure (at least upper limits of normal) to mildly increased. Her inferior vena cava (size) was upper limits of normal with adequate respiratory collapse against an elevated central venous pressure. CONCLUSIONS: Somewhat technically difficult study. Normal left ventricular size, wall thickness and wall motion. Borderline left atrial enlargement with Doppler evidence of an impairment of LV diastolic function but currently estimated mean left atrial pressure was within normal limits. Normal right heart chamber sizes and wall motion with Doppler evidence of mild pulmonary hypertension. IVC size upper limits of normal with adequate respiratory collapse against an elevated central venous pressure. Slight aortic valvular sclerosis without stenosis and very mild eccentric insufficiency. Mildly thickened mitral annulus with mild mitral insufficiency.
[2016-07-13] MEDS ORDERED: DARBEPOETIN 100 MCG/0.5 ML *NON-DIALYSIS* SYRINGE (J0881) SC SCH (19:30)
[2016-07-13 19:49] VITALS: BP 104/55
--- NOTE | 2016-07-13 20:06 | IPN ---
DATE: 07/13/2016 SUBJECTIVE: The patient was seen and examined at the bedside today in the morning. She was actually sitting on the sofa. She continues to be on intravenous (IV) Lasix drip. She is diuresing very well. Her renal function is stable at this time. She is hemodynamically stable at this time. However, she has some electrolyte abnormalities that are being managed at this time. REVIEW OF SYSTEMS: The patient denies any fevers, chills, rigors, headaches, nausea, vomiting, chest pain, shortness of breath, pain abdomen, constipation, or diarrhea or dizziness at this time. She reports that she feels great. OBJECTIVE: VITAL SIGNS: Temperature is 97.6 degrees Fahrenheit, blood pressure is 110/55, pulse is 75, respiratory rate of 18, saturating 97% on room air. INTAKE AND OUTPUT: Urine output recorded as 4300 mL yesterday, 2300 mL so far today since overnight. Weight in the bed scale is 66 kg, which is 4 kg below the admission weight. PHYSICAL EXAMINATION: GENERAL: The patient is awake, alert, oriented times three, lying on the sofa in no apparent distress. HEAD/NECK: Extraocular muscles intact. Pupils equal, round, and reactive to light. Mucous membranes are moist. Neck is supple. There is no jugular venous distention (JVD). CARDIOVASCULAR: S1, S2, regular rate. No murmur, rub, or gallop. RESPIRATORY: Chest is clear to auscultation bilaterally. Bilateral equal air entry. No rales or rhonchi. ABDOMEN: Soft. Positive bowel sounds. Nontender. No ascites, no organomegaly. EXTREMITIES: The patient has 3+ pitting edema of the bilateral lower extremities. CENTRAL NERVOUS SYSTEM (SILVER CLEANER): No focal neurological deficit. Power is 5/5 in all extremities. LABORATORY DATA: CBC showed a WBC of 8.3, hemoglobin 9.1, platelets are 219. BMP showed sodium 145, potassium 3.6, chloride 115, bicarbonate 22, BUN is 25, creatinine 1.6 which is better than yesterday; it was 1.7 yesterday. Calcium is 6.9. Ionized calcium is 4.2. Magnesium is 1.7. CURRENT MEDICATIONS: The patient's medications were all reviewed by me. She was given a dose of calcium gluconate 1 gram IV. Her dose of potassium chloride has been changed to 40 mEq by mouth twice a day. ASSESSMENT: A 71-year-old female with past medical history of chronic kidney disease stage III and hypotension, admitted this time because of anasarca and acute kidney injury superimposed on chronic kidney disease. PLAN: 1. Anasarca: The patient is responding very well to the IV Lasix drip. Continue the Lasix drip at this time. The patient is otherwise hemodynamically stable. Continue 24-hour intake and output and daily weight. 2. Hypotension: Blood pressure is acceptable at this time. Continue current dose of midodrine 2.5 mg by mouth three times a day. 3. Acute kidney injury superimposed on chronic kidney disease stage III: The patient is responding well to diuretics. Her baseline creatinine is around 1.5. Creatinine is improving with diuresis. 4. Anemia secondary to chronic kidney disease: The patient's iron levels are adequate at this time. Hemoglobin is 9.1. I will give her a dose of Aranesp. 5. Hypocalcemia: The patient will be given a dose of calcium gluconate 1 gram IV today. 6. Hypomagnesemia: The patient has been placed on magnesium oxide orally, and she was given a dose of magnesium sulfate yesterday as well. 7. Borderline hypokalemia: The patient's potassium level is significantly dropping because of diuresis. I have increased the oral potassium dose to 40 mEq by mouth twice a day.
[2016-07-13] MEDS: SIMVASTATIN 10 MG TAB PO SCH (21:44)
[2016-07-13] MEDS: FUROSEMIDE injection 250 MG in D5W 225 ML IV SCH (21:46)
[2016-07-13 23:59] VITALS: BP 89/52
[2016-07-14 04:00] VITALS: BP 110/58
[2016-07-14] MEDS: LEVOTHYROXINE 0.112 MG TAB (112 MCG) PO SCH (05:05)
[2016-07-14 05:09] LABS: BASO % 0.6 % (0.0-1.0); EOS # 0.1 K/mm3 (0.0-0.50); EOS % 1.3 % (0.0-3.0); LARGE UNSTAINED CELL # 0.1 K/mm3 (0.0-0.4); LARGE UNSTAINED CELL % 1.5 % (0.0-4.0); LYMPH # 2.2 K/mm3 (1.5-4.5); LYMPH % 26.9 % (24.0-44.0); MEAN CORPUSCULAR HEMOGLOBIN 31.3 pg (27.0-33.0); MEAN CORPUSCULAR HGB CONC 30.3 g/dl (32.0-36.5); MEAN CORPUSCULAR VOLUME 103.4 fl (80.0-96.0); MONO # 0.4 K/mm3 (0.0-0.8); MONO % 5.4 % (0.0-5.0); NEUTROPHILS # 5.2 K/mm3 (1.8-7.7); NEUTROPHILS % 64.3 % (36.0-66.0); PLATELET COUNT, AUTOMATED 233 k/mm3 (150-450); RED CELL DISTRIBUTION WIDTH 14.9 % (11.5-14.5); WHITE BLOOD COUNT 8.1 K/mm3 (4.0-10.0)
[2016-07-14 05:21] LABS: CALCIUM LEVEL 7.3 MG/DL (8.8-10.2); CREATININE FOR GFR 1.72 MG/DL (0.55-1.02); GLOMERULAR FILTRATION RATE 31.3 (>45); MAGNESIUM LEVEL 1.8 MG/DL (1.8-2.4); POTASSIUM SERUM 4.3 MEQ/L (3.5-5.1)
[2016-07-14 08:00] VITALS: BP 105/76
[2016-07-14] MEDS: ASPIRIN 81 MG ENTERIC TAB PO SCH (09:28)
[2016-07-14] MEDS: HEPARIN SOD (PORCINE) 5000 UNITS/ML VIAL SC SCH ×2 (09:28→20:56)
[2016-07-14] MEDS: MIDODRINE 2.5 MG TAB PO SCH ×3 (09:29→16:44)
[2016-07-14] MEDS: FERROUS SULFATE 325MG TAB PO SCH (09:29)
[2016-07-14] MEDS: PERCOCET 5MG/325MG TAB PO PRN ×2 (09:29→20:55)
[2016-07-14] MEDS: SENOKOT S TAB PO SCH ×2 (09:29→20:58)
[2016-07-14] MEDS: POTASSIUM CHLORIDE 10 MEQ SR TABLET PO SCH ×2 (09:30→20:55)
[2016-07-14] MEDS: GABAPENTIN 300 MG CAP PO SCH ×2 (09:30→20:55)
[2016-07-14] MEDS: CLOPIDOGREL 75 MG TAB PO SCH (09:30)
[2016-07-14] MEDS: PANTOPRAZOLE 40MG TAB (PROTONIX) PO SCH (09:30)
[2016-07-14] MEDS: MAGNESIUM OXIDE 400 MG TAB (MAG-OX) PO SCH (09:30)
[2016-07-14] MEDS: FOLIC ACID 1 MG TAB PO SCH (09:30)
[2016-07-14 12:00] VITALS: BP 109/54
--- NOTE | 2016-07-14 13:40 | IPNPDOC ---
Subjective Date Seen The patient was seen on 07/14/16. Subjective Chief Complaint/HPI The patient is a 71-year-old female admitted with a reason for visit of Anasarca ; Chf Excerbation. General: Denies: Chills, Night Sweats Constitutional: Denies: Chills, Fever Eyes: Denies: Pain, Vision change ENT: Denies: Ear Pain, Head Aches Skin: Denies: Lesions, Rash Pulmonary: Denies: Cough, Dyspnea Cardiovascular: Denies: Chest Pain, Palpitations Gastrointestinal: Denies: Nausea, Vomiting Genitourinary: Denies: Dysuria, Frequency Hematologic: Denies: Bleeding Excessively, Bruising Musculoskeletal: Denies: Back Pain, Neck Pain Objective Physical Examination General Exam: Positive: Alert, Cooperative, No Acute Distress ENT Exam: Negative: Atraumatic, Mucous membr. moist/pink Neck Exam: Negative: JVD Chest Exam: Positive: Clear to auscultation, Normal air movement Heart Exam: Positive: Normal S1, Normal S2, Rate Normal Abdomen Exam: Positive: Soft, Negative: Tenderness Extremity Exam: Positive: Swelling (2+ b/l L/E edema) Assessment /Plan Plan/VTE VTE Prophylaxis Ordered?: Yes Plan Anasarca likely secondary to decompensated congestive heart failure, hypoalbuminemia The patient is on a Lasix infusion at 10 mg/hr. Currently with a net negative 6L+ since admission 2D echocardiogram from 07/11 notable for preserved EF, Diastolic Dysfunction Fluid restricted diet Monitor I's and O's Daily weights Patient's edema does appear to be significantly improving We will continue to monitor the patient's volume status Chronic hypotension. Patient has a baseline systolic blood pressure in the 80s to 90s according to her history However she has been running a systolic blood pressure in the 100s here Continue Midodrine 2.5 mg 3 times a day Acute kidney injury superimposed on chronic kidney disease Likely cardiorenal syndrome from decompensated CHF, hypoalbuminemia Baseline serum creatinine around 1.5 Serum creatinine 1.7 this AM Hold nephrotoxins Nephrology on board Hypothyroid Continue Synthroid. Chronic back pain 2/2 Scoliosis, Osteoporosis and Spinal canal Stenosis Continue with gabapentin, percocet prn Coronary artery disease and peripheral artery disease. Continue aspirin, clopidogrel and statin. Hyperlipidemia Continue statin. Chronic anemia due to chronic kidney disease Continue with ferrous sulfate Epogen QMonthly History of obesity with gastric bypass surgery Continue with PPI and sucralfate. Deep venous thrombosis (DVT) prophylaxis Heparin SC Dispo: We will continue the patient on a Lasix infusion in an effort to optimize the patient's volume status with assistance from the nephrology team. Pending PT Eval. VS, I&O, 24H, Fishbone Vital Signs/I&O Vital Signs Date Time Temp Pulse Resp B/P Pulse Ox O2 Delivery O2 Flow Rate FiO2 07/14/16 09:59 18 07/14/16 09:29 Room Air 07/14/16 08:00 98.7 77 105/76 99 I&O- Last 24 Hours up to 6 AM 07/14/16 06:00 Intake Total 1200 ml Output Total 2175 ml Balance -975 ml Laboratory Data 24H LABS Laboratory Tests 2 07/14/16 04:49: Anion Gap 6L, White Blood Count 8.1, Red Blood Count 2.93L, Hemoglobin 9.2L, Hematocrit 30.3L, Mean Corpuscular Volume 103.4H, Mean Corpuscular Hemoglobin 31.3, Mean Corpuscular Hemoglobin Concent 30.3L, Red Cell Distribution Width 14.9H, Platelet Count 233, Neutrophils (%) (Auto) 64.3, Lymphocytes (%) (Auto) 26.9, Monocytes (%) (Auto) 5.4H, Eosinophils (%) (Auto) 1.3, Basophils (%) (Auto ) 0.6, Neutrophils # (Auto) 5.2, Lymphocytes # (Auto) 2.2, Monocytes # (Auto) 0.4, Eosinophils # (Auto) 0.1, Basophils # (Auto) 0.0, Blood Urea Nitrogen 25H, Creatinine 1.72H, Sodium Level 145, Potassium Level 4.3, Chloride Level 114H, Carbon Dioxide Level 25, Calcium Level 7.3L, Glomerular Filtration Rate 31.3L, Large Unclassified Cells # 0.1, Large Unclassified Cells % 1.5, Magnesium Level 1.8 CBC/BMP Laboratory Tests 07/14/16 04:49 Calcium Level 7.3 L, Red Blood Count 2.93 L, Mean Corpuscular Volume 103.4 H, Mean Corpuscular Hemoglobin 31.3, Mean Corpuscular Hemoglobin Concent 30.3 L, Red Cell Distribution Width 14.9 H, Neutrophils (%) (Auto) 64.3, Lymphocytes (% ) (Auto) 26.9, Monocytes (%) (Auto) 5.4 H, Eosinophils (%) (Auto) 1.3, Basophils (%) (Auto) 0.6, Neutrophils # (Auto) 5.2, Lymphocytes # (Auto) 2.2, Monocytes # (Auto) 0.4, Eosinophils # (Auto) 0.1, Basophils # (Auto) 0.0 BEN PERDUE MD Jul 14, 2016 13:40
[2016-07-14 16:00] VITALS: BP 102/52
[2016-07-14 20:00] VITALS: BP 126/58
--- NOTE | 2016-07-14 20:50 | IPN ---
DATE: 07/14/2016 Mrs. Gomez is seen this morning on her bedside. She was admitted with severe volume overload, congestive heart failure and acute kidney injury. She is currently being diuresed with intravenous Lasix drip. She reports feeling better and has started to diurese. She denies any nausea or vomiting. She has no dyspnea or chest pain at present, however she still has peripheral edema on all her extremities. She denies any dizziness or lightheadedness and is able to get up and walk in her room. PHYSICAL EXAMINATION: Temperature is 98.7 degrees Fahrenheit, heart rate 76 per minute and respiratory rate 18 per minute. Blood pressure 105/76 mmHg and oxygen saturation 99% on room air. Intake and output records from yesterday showed total intake 1260 and output 2875 mL. Today she weighed 64.3 kg. Head is atraumatic. Ears, nose and throat are unremarkable and she is using her hearing aid. Oral mucosa is moist and healthy. Pupils are equal and reactive to light and sclerae is anicteric. Neck veins are still at least moderately distended. There is no thyroid enlargement and trachea is midline. Heart sounds are regular in rhythm and without a pericardial friction rub. Lungs have slightly diminished breath sounds at bases but no audible wheezing or rales. Abdomen soft and nontender. Extremities have edema but no cyanosis or clubbing. Neurologically she is awake, alert and oriented times three. Today's labs show sodium level 145 and potassium 4.3. BUN 25 and creatinine 1.72. Calcium level is 7.3 and magnesium 1.8. Hemoglobin 9.2 and hematocrit 30.3. PROBLEMS: 1. Acute congestive heart failure superimposed on chronic congestive heart failure. She is currently being treated with intravenous Lasix drip and is responding. We will continue with the same and she remains on fluid restriction of 1500 mL/day. She is making progress every day and her peripheral edema is improving. 2. Acute kidney injury superimposed on chronic kidney disease. There is no significant change in her kidney function. She has slight increase in BUN and creatinine related to negative fluid balance. At present we will continue to monitor. She has no uremic symptoms. 3. Hypotension. Her blood pressure is stable at present on low dose of midodrine which will be continued. She is asymptomatic and has been able to ambulate. 4. Anemia. Anemia is chronic and stable. No intervention is needed as she has already received a dose of Aranesp. We will continue to monitor closely. 5. Abnormal electrolytes. Her electrolytes have all improved and currently no intervention is indicated. Slightly low total calcium is related to low serum albumin and her ionized calcium level is 4.2.
[2016-07-14] MEDS: SIMVASTATIN 10 MG TAB PO SCH (20:55)
[2016-07-14] MEDS: FUROSEMIDE injection 250 MG in D5W 225 ML IV SCH (23:02)
[2016-07-14 23:59] VITALS: BP 101/48
[2016-07-15 04:00] VITALS: BP 105/55
[2016-07-15] MEDS: LEVOTHYROXINE 0.112 MG TAB (112 MCG) PO SCH (05:25)
[2016-07-15 05:38] LABS: BASO % 0.6 % (0.0-1.0); EOS # 0.1 K/mm3 (0.0-0.50); EOS % 1.3 % (0.0-3.0); LARGE UNSTAINED CELL # 0.2 K/mm3 (0.0-0.4); LARGE UNSTAINED CELL % 2.1 % (0.0-4.0); LYMPH # 2.3 K/mm3 (1.5-4.5); LYMPH % 30.7 % (24.0-44.0); MEAN CORPUSCULAR HEMOGLOBIN 31.5 pg (27.0-33.0); MEAN CORPUSCULAR HGB CONC 30.2 g/dl (32.0-36.5); MEAN CORPUSCULAR VOLUME 104.4 fl (80.0-96.0); MONO # 0.4 K/mm3 (0.0-0.8); MONO % 5.6 % (0.0-5.0); NEUTROPHILS # 4.2 K/mm3 (1.8-7.7); NEUTROPHILS % 59.7 % (36.0-66.0); PLATELET COUNT, AUTOMATED 232 k/mm3 (150-450); RED CELL DISTRIBUTION WIDTH 15.1 % (11.5-14.5); WHITE BLOOD COUNT 7.1 K/mm3 (4.0-10.0)
[2016-07-15 05:56] LABS: CALCIUM LEVEL 7.1 MG/DL (8.8-10.2); CREATININE FOR GFR 1.77 MG/DL (0.55-1.02); GLOMERULAR FILTRATION RATE 30.3 (>45); MAGNESIUM LEVEL 1.8 MG/DL (1.8-2.4); POTASSIUM SERUM 4.4 MEQ/L (3.5-5.1)
[2016-07-15 08:00] VITALS: BP 104/58
[2016-07-15] MEDS: GABAPENTIN 300 MG CAP PO SCH ×2 (08:53→21:31)
[2016-07-15] MEDS: MAGNESIUM OXIDE 400 MG TAB (MAG-OX) PO SCH (08:53)
[2016-07-15] MEDS: ASPIRIN 81 MG ENTERIC TAB PO SCH (08:53)
[2016-07-15] MEDS: CLOPIDOGREL 75 MG TAB PO SCH (08:53)
[2016-07-15] MEDS: PANTOPRAZOLE 40MG TAB (PROTONIX) PO SCH (08:53)
[2016-07-15] MEDS: MIDODRINE 2.5 MG TAB PO SCH ×3 (08:54→15:24)
[2016-07-15] MEDS: HEPARIN SOD (PORCINE) 5000 UNITS/ML VIAL SC SCH ×2 (08:54→21:32)
[2016-07-15] MEDS: FOLIC ACID 1 MG TAB PO SCH (08:54)
[2016-07-15] MEDS: POTASSIUM CHLORIDE 10 MEQ SR TABLET PO SCH ×2 (08:54→21:31)
[2016-07-15] MEDS: SENOKOT S TAB PO SCH ×2 (08:54→21:00)
[2016-07-15] MEDS: FERROUS SULFATE 325MG TAB PO SCH (08:54)
[2016-07-15 12:00] VITALS: BP 117/51
[2016-07-15] MEDS: PERCOCET 5MG/325MG TAB PO PRN ×2 (12:20→21:32)
--- NOTE | 2016-07-15 12:52 | IPNPDOC ---
Subjective Date Seen The patient was seen on 07/15/16. Subjective Chief Complaint/HPI The patient is a 71-year-old female admitted with a reason for visit of Anasarca ; Chf Excerbation. General: Denies: Chills, Night Sweats Constitutional: Denies: Chills, Fever Eyes: Denies: Pain, Vision change ENT: Denies: Ear Pain, Head Aches Skin: Denies: Lesions, Rash Pulmonary: Denies: Cough, Dyspnea Cardiovascular: Denies: Chest Pain, Palpitations Gastrointestinal: Denies: Nausea, Vomiting Genitourinary: Denies: Dysuria, Frequency Hematologic: Denies: Bleeding Excessively, Bruising Musculoskeletal: Denies: Back Pain, Neck Pain Objective Physical Examination General Exam: Positive: Alert, Cooperative, No Acute Distress ENT Exam: Negative: Atraumatic, Mucous membr. moist/pink Neck Exam: Negative: JVD Chest Exam: Positive: Clear to auscultation, Normal air movement Heart Exam: Positive: Normal S1, Normal S2, Rate Normal Abdomen Exam: Positive: Soft, Negative: Tenderness Extremity Exam: Positive: Swelling (2+ b/l L/E edema) Assessment /Plan Plan/VTE VTE Prophylaxis Ordered?: Yes Plan Anasarca likely secondary to decompensated congestive heart failure, hypoalbuminemia The patient is on a Lasix infusion at 10 mg/hr. Currently with a net negative 6.5L + since admission 2D echocardiogram from 07/11 notable for preserved EF, Diastolic Dysfunction Fluid restricted diet Monitor I's and O's Daily weights Patient's edema does appear to be significantly improving We will continue to monitor the patient's volume status Chronic hypotension. Patient has a baseline systolic blood pressure in the 80s to 90s according to her history However she has been running a systolic blood pressure in the 100s here Continue Midodrine 2.5 mg 3 times a day Acute kidney injury superimposed on chronic kidney disease Likely cardiorenal syndrome from decompensated CHF, hypoalbuminemia Baseline serum creatinine around 1.5 Serum creatinine 1.7 this AM Hold nephrotoxins Nephrology on board Hypothyroid Continue Synthroid. Chronic back pain 2/2 Scoliosis, Osteoporosis and Spinal canal Stenosis Continue with gabapentin, percocet prn Coronary artery disease and peripheral artery disease. Continue aspirin, clopidogrel and statin. Hyperlipidemia Continue statin. Chronic anemia due to chronic kidney disease Continue with ferrous sulfate Epogen QMonthly History of obesity with gastric bypass surgery Continue with PPI and sucralfate. Deep venous thrombosis (DVT) prophylaxis Heparin SC Dispo: We will continue the patient on a Lasix infusion in an effort to optimize the patient's volume status with assistance from the nephrology team. Pending PT clearance. VS, I&O, 24H, Fishbone Vital Signs/I&O Vital Signs Date Time Temp Pulse Resp B/P Pulse Ox O2 Delivery O2 Flow Rate FiO2 07/15/16 12:20 17 07/15/16 08:00 98.6 70 104/58 96 Room Air I&O- Last 24 Hours up to 6 AM 07/15/16 06:00 Intake Total 660 ml Output Total 2200 ml Balance -1540 ml Laboratory Data 24H LABS Laboratory Tests 2 07/15/16 05:10: Anion Gap 8, White Blood Count 7.1, Red Blood Count 2.93L, Hemoglobin 9.2L, Hematocrit 30.5L, Mean Corpuscular Volume 104.4H, Mean Corpuscular Hemoglobin 31.5, Mean Corpuscular Hemoglobin Concent 30.2L, Red Cell Distribution Width 15.1H, Platelet Count 232, Neutrophils (%) (Auto) 59.7, Lymphocytes (%) (Auto) 30.7, Monocytes (%) (Auto) 5.6H, Eosinophils (%) (Auto) 1.3, Basophils (%) (Auto ) 0.6, Neutrophils # (Auto) 4.2, Lymphocytes # (Auto) 2.3, Monocytes # (Auto) 0.4, Eosinophils # (Auto) 0.1, Basophils # (Auto) 0.0, Blood Urea Nitrogen 24H, Creatinine 1.77H, Sodium Level 147H, Potassium Level 4.4, Chloride Level 114H, Carbon Dioxide Level 25, Calcium Level 7.1L, Glomerular Filtration Rate 30.3L, Large Unclassified Cells # 0.2, Large Unclassified Cells % 2.1, Magnesium Level 1.8 CBC/BMP Laboratory Tests 07/15/16 05:10 Calcium Level 7.1 L, Red Blood Count 2.93 L, Mean Corpuscular Volume 104.4 H, Mean Corpuscular Hemoglobin 31.5, Mean Corpuscular Hemoglobin Concent 30.2 L, Red Cell Distribution Width 15.1 H, Neutrophils (%) (Auto) 59.7, Lymphocytes (% ) (Auto) 30.7, Monocytes (%) (Auto) 5.6 H, Eosinophils (%) (Auto) 1.3, Basophils (%) (Auto) 0.6, Neutrophils # (Auto) 4.2, Lymphocytes # (Auto) 2.3, Monocytes # (Auto) 0.4, Eosinophils # (Auto) 0.1, Basophils # (Auto) 0.0 BEN PERDUE MD Jul 15, 2016 12:52
[2016-07-15 16:00] VITALS: BP 114/64
[2016-07-15 21:01] VITALS: BP 106/52
--- NOTE | 2016-07-15 21:01 | IPN ---
DATE: 07/15/2016 Mrs. Gomez is seen this morning on her bedside. She is sitting in the chair. She is feeling better and reports that her peripheral edema is improving with intravenous (IV) Lasix drip. Her dyspnea has already improved, and she denies any chest pain. She has no nausea, vomiting, headache, or dizziness. PHYSICAL EXAMINATION: Temperature 98 degrees Fahrenheit, heart rate 79 per minute, respiratory rate 18 per minute, blood pressure 117/50 mm of mercury, and oxygen saturation 96% on room air. Intake and output records from yesterday are probably inaccurate, as her intake is recorded only 600 mL. Output was 2100. She weighed 63.2 kg, which is 1.1 kg lower than yesterday. Head is atraumatic. Ears, nose. and throat are unremarkable. Neck is supple and without jugular venous distention (JVD) or thyroid enlargement. Heart sounds are regular. Lungs sound clear to auscultation. Abdomen soft and nontender. Bowel sounds are normal. Extremities have no cyanosis or clubbing. Skin has no rash or ulcers. Peripheral edema is improving, however, still present on upper extremities and lower extremities. Today's labs show WBC count 7.1, hemoglobin 9.2, and hematocrit 30.5. Sodium 147, potassium 4.4, BUN 24, and creatinine 1.77. Calcium level is 7.1 and magnesium 1.8. PROBLEMS: 1. Acute renal failure superimposed on chronic kidney disease. No significant change in kidney function. Slight increase in serum creatinine is related to negative fluid balance. She has no uremic symptoms. 2. Hypernatremia. This is mild and related to aggressive diuresis. Her oral intake was recorded only 600 mL yesterday. She is likely to drink at least 1200 per day. Electrolytes will be checked again tomorrow morning. I will not change anything at this point, as she still has significant peripheral edema. We may have to slow down on her diuresis in next 24 hours. 3. Congestive heart failure. Volume status is improving with current diuretic therapy and will continue with the same. 4. Anemia. Anemia is stable and does not need any further intervention at this point.
[2016-07-15] MEDS: SIMVASTATIN 10 MG TAB PO SCH (21:31)
[2016-07-15] MEDS: FUROSEMIDE injection 250 MG in D5W 225 ML IV SCH (21:32)
[2016-07-15 23:59] VITALS: BP 106/55
[2016-07-16 04:45] VITALS: BP 107/55
[2016-07-16 05:37] LABS: BASO % 0.6 % (0.0-1.0); EOS # 0.1 K/mm3 (0.0-0.50); EOS % 1.4 % (0.0-3.0); LARGE UNSTAINED CELL # 0.1 K/mm3 (0.0-0.4); LARGE UNSTAINED CELL % 1.8 % (0.0-4.0); LYMPH # 2.2 K/mm3 (1.5-4.5); LYMPH % 32.7 % (24.0-44.0); MEAN CORPUSCULAR HEMOGLOBIN 31.2 pg (27.0-33.0); MEAN CORPUSCULAR HGB CONC 30.1 g/dl (32.0-36.5); MEAN CORPUSCULAR VOLUME 103.6 fl (80.0-96.0); MONO # 0.4 K/mm3 (0.0-0.8); MONO % 5.8 % (0.0-5.0); NEUTROPHILS # 3.7 K/mm3 (1.8-7.7); NEUTROPHILS % 57.8 % (36.0-66.0); PLATELET COUNT, AUTOMATED 233 k/mm3 (150-450); WHITE BLOOD COUNT 6.4 K/mm3 (4.0-10.0)
[2016-07-16] MEDS: LEVOTHYROXINE 0.112 MG TAB (112 MCG) PO SCH (05:42)
[2016-07-16 05:53] LABS: CALCIUM LEVEL 7.2 MG/DL (8.8-10.2); CREATININE FOR GFR 1.79 MG/DL (0.55-1.02); GLOMERULAR FILTRATION RATE 29.9 (>45); MAGNESIUM LEVEL 1.7 MG/DL (1.8-2.4); POTASSIUM SERUM 4.4 MEQ/L (3.5-5.1)
[2016-07-16 08:00] VITALS: BP 88/54
[2016-07-16] MEDS ORDERED: MAGNESIUM OXIDE 400 MG TAB (MAG-OX) PO ONE (08:00)
[2016-07-16 10:15] LABS: ALBUMIN 1.4 GM/DL (3.2-5.2)
[2016-07-16] MEDS: PANTOPRAZOLE 40MG TAB (PROTONIX) PO SCH (10:20)
[2016-07-16] MEDS: CLOPIDOGREL 75 MG TAB PO SCH (10:21)
[2016-07-16] MEDS: FOLIC ACID 1 MG TAB PO SCH (10:21)
[2016-07-16] MEDS: ASPIRIN 81 MG ENTERIC TAB PO SCH (10:21)
[2016-07-16] MEDS: MIDODRINE 2.5 MG TAB PO SCH ×3 (10:21→16:18)
[2016-07-16] MEDS: FERROUS SULFATE 325MG TAB PO SCH (10:21)
[2016-07-16] MEDS: SENOKOT S TAB PO SCH ×2 (10:21→21:07)
[2016-07-16] MEDS: POTASSIUM CHLORIDE 10 MEQ SR TABLET PO SCH (10:27)
[2016-07-16] MEDS: GABAPENTIN 300 MG CAP PO SCH ×2 (10:28→21:07)
[2016-07-16] MEDS: MAGNESIUM OXIDE 400 MG TAB (MAG-OX) PO SCH (10:28)
[2016-07-16] MEDS: HEPARIN SOD (PORCINE) 5000 UNITS/ML VIAL SC SCH ×2 (10:31→21:07)
[2016-07-16] MEDS: PERCOCET 5MG/325MG TAB PO PRN ×2 (10:39→21:11)
[2016-07-16 11:33] VITALS: BP 100/59
[2016-07-16] MEDS ORDERED: SLF 3 ML SYR IV PRN (13:00)
--- NOTE | 2016-07-16 13:13 | IPNPDOC ---
Subjective Date Seen The patient was seen on 07/16/16. Subjective Chief Complaint/HPI The patient is a 71-year-old female admitted with a reason for visit of Anasarca ; Chf Excerbation. General: Denies: Chills, Night Sweats Constitutional: Denies: Chills Eyes: Denies: Pain, Vision change ENT: Denies: Ear Pain, Head Aches Skin: Denies: Lesions, Rash Pulmonary: Denies: Cough, Dyspnea Cardiovascular: Denies: Chest Pain, Palpitations Gastrointestinal: Denies: Nausea, Vomiting Genitourinary: Denies: Dysuria, Frequency Hematologic: Denies: Bleeding Excessively, Bruising Musculoskeletal: Denies: Back Pain, Neck Pain Objective Physical Examination General Exam: Positive: Alert, Cooperative, No Acute Distress ENT Exam: Negative: Atraumatic, Mucous membr. moist/pink Neck Exam: Negative: JVD Chest Exam: Positive: Clear to auscultation, Normal air movement Heart Exam: Positive: Normal S1, Normal S2, Rate Normal Abdomen Exam: Positive: Soft, Negative: Tenderness Extremity Exam: Positive: Swelling (2+ b/l L/E edema) Assessment /Plan Plan/VTE VTE Prophylaxis Ordered?: Yes Plan Anasarca likely secondary to decompensated congestive heart failure, hypoalbuminemia s/p Lasix infusion @ 10 cc/hr-->Transitioned to PO Lasix 60mg BID Currently with a net negative ~ 9L since admission 2D echocardiogram from 07/11 notable for preserved EF, Diastolic Dysfunction Fluid restricted diet Monitor I's and O's Daily weights Patient's edema does appear to be significantly improving We will continue to monitor the patient's volume status on PO Lasix Chronic hypotension. Patient has a baseline systolic blood pressure in the 80s to 90s according to her history However she has been running a systolic blood pressure in the 100s here Continue Midodrine 2.5 mg 3 times a day Acute kidney injury superimposed on chronic kidney disease Likely cardiorenal syndrome from decompensated CHF, hypoalbuminemia Baseline serum creatinine around 1.5 Serum creatinine 1.8 this AM likely 2/2 negative balance diuresis Hold nephrotoxins Nephrology on board Hypothyroid Continue Synthroid. Chronic back pain 2/2 Scoliosis, Osteoporosis and Spinal canal Stenosis Continue with gabapentin, percocet prn Coronary artery disease and peripheral artery disease. Continue aspirin, clopidogrel and statin. Hyperlipidemia Continue statin. Chronic anemia due to chronic kidney disease Continue with ferrous sulfate Epogen QMonthly History of obesity with gastric bypass surgery Continue with PPI and sucralfate. Deep venous thrombosis (DVT) prophylaxis Heparin SC Dispo: Patient transitioned to PO Lasix. Pending PT clearance. VS, I&O, 24H, Fishbone Vital Signs/I&O Vital Signs Date Time Temp Pulse Resp B/P Pulse Ox O2 Delivery O2 Flow Rate FiO2 07/16/16 11:33 98.8 80 18 100/59 99 Room Air I&O- Last 24 Hours up to 6 AM 07/16/16 06:00 Intake Total 480 ml Output Total 1975 ml Balance -1495 ml Laboratory Data 24H LABS Laboratory Tests 2 07/16/16 05:07: Albumin 1.4L, Anion Gap 8, White Blood Count 6.4, Red Blood Count 2.97L, Hemoglobin 9.3L, Hematocrit 30.8L, Mean Corpuscular Volume 103.6H, Mean Corpuscular Hemoglobin 31.2, Mean Corpuscular Hemoglobin Concent 30.1L, Red Cell Distribution Width 15.0H, Platelet Count 233, Neutrophils (%) (Auto) 57.8, Lymphocytes (%) (Auto) 32.7, Monocytes (%) (Auto) 5.8H, Eosinophils (%) (Auto) 1.4, Basophils (%) (Auto) 0.6, Neutrophils # (Auto) 3.7, Lymphocytes # (Auto) 2.2, Monocytes # (Auto) 0.4, Eosinophils # (Auto) 0.1, Basophils # (Auto) 0.0, Blood Urea Nitrogen 24H, Creatinine 1.79H, Sodium Level 145, Potassium Level 4.4 , Chloride Level 112H, Carbon Dioxide Level 25, Calcium Level 7.2L, Glomerular Filtration Rate 29.9L, Large Unclassified Cells # 0.1, Large Unclassified Cells % 1.8, Magnesium Level 1.7L CBC/BMP Laboratory Tests 07/16/16 05:07 Calcium Level 7.2 L, Red Blood Count 2.97 L, Mean Corpuscular Volume 103.6 H, Mean Corpuscular Hemoglobin 31.2, Mean Corpuscular Hemoglobin Concent 30.1 L, Red Cell Distribution Width 15.0 H, Neutrophils (%) (Auto) 57.8, Lymphocytes (% ) (Auto) 32.7, Monocytes (%) (Auto) 5.8 H, Eosinophils (%) (Auto) 1.4, Basophils (%) (Auto) 0.6, Neutrophils # (Auto) 3.7, Lymphocytes # (Auto) 2.2, Monocytes # (Auto) 0.4, Eosinophils # (Auto) 0.1, Basophils # (Auto) 0.0 BEN PERDUE MD Jul 16, 2016 13:13
[2016-07-16 16:00] VITALS: BP 123/53
[2016-07-16] MEDS ORDERED: FUROSEMIDE 20 MG TAB PO SCH (17:00)
[2016-07-16] MEDS: SLF 3 ML SYR IV SCH ×2 (17:39→21:07)
[2016-07-16 20:01] VITALS: BP 96/50
[2016-07-16] MEDS: SIMVASTATIN 10 MG TAB PO SCH (21:07)
--- NOTE | 2016-07-16 21:40 | IPN ---
DATE: 07/16/2016 SUBJECTIVE: The patient was seen and examined at the bedside today in the morning. She continues to be on intravenous (IV) Lasix drip. She is almost 9 liters negative so far since admission. Her edema is getting better. Her renal function is stable. REVIEW OF SYSTEMS: The patient denies any fever, chills, rigors, headache, nausea, vomiting, chest pain, shortness of breath, dizziness or lightheadedness. OBJECTIVE: VITAL SIGNS: Temperature is 97.9 degrees Fahrenheit, blood pressure is 88/54, pulse is 82, respiratory rate of 18, saturating 98% on room air. INTAKE/OUTPUT: Urine PHYSICAL EXAMINATION: GENERAL: The patient is awake, alert, oriented times three, sitting on the sofa in no apparent distress. HEAD AND NECK EXAM: Extraocular muscles intact. Pupils equally round and reactive to light. Mucous membranes are moist. Neck is supple. There is no jugular venous distention (JVD). CARDIOVASCULAR: S1, S2, regular rate. No murmur, rub or gallop. RESPIRATORY: Chest is clear to auscultation bilaterally. Bilateral equal air entry. No rales or rhonchi. ABDOMEN: Abdomen is soft. Positive bowel sounds. Nontender. No ascites. No organomegaly. EXTREMITIES: No clubbing or cyanosis. She has 1+ pitting edema of the bilateral lower extremities, which is significantly better as compared with the anasarca on admission. CENTRAL NERVOUS SYSTEM: No focal neurological deficit. Power is 5/5 in all extremities. LAB REVIEW: CBC showed a WBC of 6.4, hemoglobin 9.3, platelets ae 233. BMP showed sodium 145, potassium 4.4, chloride 112, bicarbonate 25, BUN 24, creatinine is 1.7, magnesium is 1.7, albumin is 1.4. CURRENT MEDICATIONS: Patient's medications were all reviewed by me. I have stopped her IV Lasix today, and I have switched her to Lasix 60 mg by mouth twice a day. I have changed her potassium to 40 mEq by mouth daily. There is no other change in the medications today as compared with yesterday. ASSESSMENT: A 71-year-old female who was admitted with anasarca. PLAN: 1. Anasarca. The patient has a very good response to IV diuretics; however, I have switched her to oral diuretics now. She is almost 9 liters negative. If the patient continues to respond well to oral diuretics by tomorrow, then we shall plan to discharge her home. 2. Hypernatremia. Hypernatremia is secondary to aggressive diuresis. Sodium is 145. Continue to monitor for now. 3. Hypomagnesemia. Continue the current dose of magnesium oxide 400 mg by mouth daily. The patient was given an extra dose of magnesium oxide 400 mg one dose. 4. Hypotension. Blood pressure is acceptable at this time. Continue current dose of midodrine 2.5 mg by mouth three times a day.
[2016-07-16 23:16] VITALS: BP 103/49
[2016-07-17 04:49] VITALS: BP 95/49
[2016-07-17] MEDS: LEVOTHYROXINE 0.112 MG TAB (112 MCG) PO SCH (05:24)
[2016-07-17] MEDS: SLF 3 ML SYR IV SCH (05:24)
[2016-07-17 05:31] LABS: BASO % 0.5 % (0.0-1.0); EOS # 0.1 K/mm3 (0.0-0.50); EOS % 1.5 % (0.0-3.0); LARGE UNSTAINED CELL # 0.1 K/mm3 (0.0-0.4); LARGE UNSTAINED CELL % 1.3 % (0.0-4.0); LYMPH # 2.5 K/mm3 (1.5-4.5); MEAN CORPUSCULAR HEMOGLOBIN 31.7 pg (27.0-33.0); MEAN CORPUSCULAR HGB CONC 31.3 g/dl (32.0-36.5); MEAN CORPUSCULAR VOLUME 101.2 fl (80.0-96.0); MONO # 0.4 K/mm3 (0.0-0.8); MONO % 5.6 % (0.0-5.0); NEUTROPHILS # 3.6 K/mm3 (1.8-7.7); NEUTROPHILS % 54.1 % (36.0-66.0); PLATELET COUNT, AUTOMATED 234 k/mm3 (150-450); RED CELL DISTRIBUTION WIDTH 14.9 % (11.5-14.5); WHITE BLOOD COUNT 6.6 K/mm3 (4.0-10.0)
[2016-07-17 05:53] LABS: CALCIUM LEVEL 7.4 MG/DL (8.8-10.2); CREATININE FOR GFR 1.88 MG/DL (0.55-1.02); GLOMERULAR FILTRATION RATE 28.2 (>45); MAGNESIUM LEVEL 1.9 MG/DL (1.8-2.4); POTASSIUM SERUM 4.2 MEQ/L (3.5-5.1)
[2016-07-17 07:50] VITALS: BP 94/48
[2016-07-17] MEDS: MIDODRINE 2.5 MG TAB PO SCH ×2 (08:21→11:40)
[2016-07-17] MEDS: HEPARIN SOD (PORCINE) 5000 UNITS/ML VIAL SC SCH (08:21)
[2016-07-17] MEDS: ASPIRIN 81 MG ENTERIC TAB PO SCH (08:22)
[2016-07-17] MEDS: FOLIC ACID 1 MG TAB PO SCH (08:22)
[2016-07-17] MEDS: GABAPENTIN 300 MG CAP PO SCH (08:22)
[2016-07-17] MEDS: FERROUS SULFATE 325MG TAB PO SCH (08:23)
[2016-07-17] MEDS: SENOKOT S TAB PO SCH (08:24)
[2016-07-17] MEDS: MAGNESIUM OXIDE 400 MG TAB (MAG-OX) PO SCH (08:24)
[2016-07-17] MEDS: PANTOPRAZOLE 40MG TAB (PROTONIX) PO SCH (08:24)
[2016-07-17] MEDS: CLOPIDOGREL 75 MG TAB PO SCH (08:24)
[2016-07-17] MEDS ORDERED: FUROSEMIDE 40 MG TAB PO SCH (09:00)
[2016-07-17] MEDS ORDERED: POTASSIUM CHLORIDE 10 MEQ SR TABLET PO SCH (09:00)
[2016-07-17] MEDS ORDERED: POTA10CA PO (10:32)
[2016-07-17] MEDS ORDERED: MIDO25TA PO (10:32)
[2016-07-17] MEDS ORDERED: FURO40TA2 PO (10:32)
[2016-07-17 11:54] VITALS: BP 135/46
--- NOTE | 2016-07-17 15:50 | DSES ---
DATE OF ADMISSION: 07/11/2016 DATE OF DISCHARGE: 07/17/2016 ATTENDING PHYSICIAN: Dr. Lake Griffin and Dr. Smooth Marino. PRIMARY CARE PROVIDER: Dr. Taz Echols. REFERRING PHYSICIAN: None. CONSULTING PHYSICIAN: Dr. Mann. CONDITION ON DISCHARGE: Stable. FINAL DIAGNOSIS: Anasarca likely secondary to decompensated congestive heart failure and hypoalbuminemia. PROCEDURES: None. HISTORY OF PRESENT ILLNESS: The patient is a 71-year-old female with a past medical history of chronic kidney disease (CKD) stage III, history of morbid obesity, diabetes, chronic hypotension on midodrine, chronic back pain, scoliosis, osteoporosis, spinal canal stenosis, coronary artery disease status post stent placement, congestive heart failure, hypothyroidism, dyslipidemia and chronic anemia who presented to the emergency room because of dizziness and lightheadedness possibly related to low blood pressure, was discharged from the hospital on 06/29/2016. During that hospitalization, her diuretics were stopped because of low blood pressure and she was sent home without any diuretic. Patient began to gain fluid in her legs and noted a significant weight gain. When she went to see her branding machine tender, she was found to be in acute heart failure and was sent to the emergency room (ER) for evaluation. Patient was subsequently admitted for congestive heart failure exacerbation. HOSPITAL COURSE: 1. Anasarca, likely secondary to decompensated congestive heart failure with hypoalbuminemia. She is status post Lasix infusion. She has currently been net negative about 9 liters. A 2D echocardiogram from 07/11/2016 is notable for preserved ejection fraction and diastolic dysfunction. The patient has been put on a fluid restricted diet. Her input and output has been monitored daily. Daily weights have been recorded. The patient's edema has improved significantly and she has been transitioned to Lasix by mouth. 2. Chronic hypotension. The patient has a baseline systolic blood pressure in the 80s and 90s. She has been started on midodrine 2.5 three times a day. 3. Acute kidney injury, superimposed on chronic kidney disease, likely secondary to cardiorenal syndrome from decompensated congestive heart failure and hypoalbuminemia. Creatinine baseline is 1.5. Serum creatinine is 1.8 upon discharge. 4. Hypothyroidism. Continue with Synthroid. 5. Chronic back pain secondary to scoliosis, osteoporosis, and spinal canal stenosis. Continue with gabapentin and Percocet. 6. Coronary artery disease with peripheral artery disease. Continue with aspirin, Plavix, and statin. 7. Dyslipidemia. Continue with statin. 8. Chronic anemia due to chronic kidney disease. Continue with ferrous sulfate, Epogen monthly. 9. History of obesity and gastric bypass surgery. Continue with proton pump inhibitor (PPI) and sucralfate. 10. Deep vein thrombosis (DVT) prophylaxis. The patient has been put on heparin subcutaneous. DISCHARGE MEDICATIONS: The patient is being discharged home with the following medication list: - aspirin 81 mg by mouth daily - bacitracin one dose externally twice a day - calcium one tablet by mouth twice a day - Plavix 75 mg by mouth daily - vitamin B12 1000 mcg intramuscular monthly - Procrit 10,000 units injected monthly - vitamin D2 2000 units by mouth daily - ferrous sulfate 325 mg by mouth twice a day - folic acid 1 gram by mouth daily - gabapentin 300 mg by mouth twice a day - levothyroxine 112 mcg by mouth daily - multivitamin one tablet by mouth twice a day - nitroglycerin 0.4 mg sublingually to be taken as directed - oxycodone/acetaminophen one tablet by mouth three times a day as needed pain - Protonix 40 mg by mouth daily - Zemplar 1 mcg by mouth daily - Senna two tablets by mouth daily as needed for constipation - simvastatin 10 mg by mouth at bedtime - sucralfate 1 gram by mouth before meals and at bedtime Stopped medications include: - furosemide 20 mg by mouth daily - midodrine 2.5 mg by mouth daily New medications prescribed include: - furosemide 40 mg by mouth twice a day - midodrine 2.5 mg by mouth three times a day - potassium chloride 40 mEq by mouth daily DISCHARGE INSTRUCTIONS: The patient has been advised to followup with her primary care provider and nephrology within the next seven days. She has been advised to remain compliant with the treatment plan and medications and return to the emergency room if she experiences any problems. TIME SPENT ON DISCHARGE: 35 minutes.
--- NOTE | 2016-07-17 19:03 | IPN ---
DATE: 07/17/2016 SUBJECTIVE: Patient was seen and examined at the bedside today in the morning. She feels much better. She is currently on oral diuretics. She is responding well to the oral diuretics, as well. Intravenous (IV) Lasix is on hold. Renal function is stable, at her baseline. She is otherwise hemodynamically stable. REVIEW OF SYSTEMS: Patient denies any fevers, chills, rigors, headache, nausea, vomiting, chest pain, shortness of breath, abdominal pain, constipation, or diarrhea. The rest of review of systems is negative. OBJECTIVE: VITAL SIGNS: Temperature 97.6 degrees Fahrenheit, blood pressure 194/48, pulse 72, respiratory rate 18, saturating 95% on room air. INTAKE AND OUTPUT: Urine output recorded is 2.51 liters yesterday, about 1100 mL so far today since overnight. Weight in the bed scale is 60.1 kg, which is 10 kg below her admission weight. PHYSICAL EXAMINATION: GENERAL: Patient is awake, alert, oriented times three, laying in bed in no apparent distress. HEAD AND NECK EXAMINATION: Extraocular muscles intact. Pupils equally round and reactive to light. Mucous membranes are moist. Neck is supple. There is no jugular venous distention (JVD). CARDIOVASCULAR: S1, S2. Regular rate. No murmurs, rubs or gallops. RESPIRATORY: Clear to auscultation bilaterally. Bilateral clear air entry. No rales or rhonchi. ABDOMEN: Soft, positive bowel sounds. Nontender. No ascites. No organomegaly. EXTREMITIES: No clubbing or cyanosis. Pulses are 2+. Trace edema of the bilateral lower extremities. CENTRAL NERVOUS SYSTEM: No focal neurological deficits. Power is 5/5 in all extremities. LABORATORY REVIEW: CBC showed WBC 6.6, hemoglobin 9, platelets 234. BMP showed sodium 146, potassium 4.2, chloride 112, bicarbonate 27, BUN 28, creatinine 1.8, calcium 7.4, magnesium 1.8. CURRENT MEDICATIONS: Patient's medications were all reviewed by me. Her Lasix dose has been changes to 40 mg by mouth twice a day. Her potassium has been changed to 40 mEq by mouth daily. There are no other changes in the medications today as compared to yesterday. ASSESSMENT: A 71-year-old female with past medical history of chronic kidney disease admitted this time with anasarca. PLAN: 1. Anasarca. Patient's fluid status is significantly better. She has lost 10 kg of fluid weight since admission. Her diuretics have been changed. She can be discharged home on Lasix 40 mg by mouth twice a day and potassium 40 mEq by mouth daily. 2. Hypernatremia secondary to aggressive diuresis. I have decreased the diuretic dose. Sodium level is expected to improve. 3. Hypotension. Blood pressure is acceptable at this time. Continue current dose of midodrine 2.5 mg three times a day. 4. Hypomagnesemia. Magnesium level is improved to 1.9. Continue current dose of magnesium oxide 400 mg by mouth daily. 5. Discharge planning. It is okay to discharge the patient from a nephrology standpoint. She can follow up with nephrology about 1-2 weeks after discharge from the hospital. Plan of care discussed with the hospitalist team, Dr. Lake Griffin.
== END 2016-07-17 13:48 | disposition home or self-care (01) | DRG 291 ==
LOC: M ED 17:35 → M ED INP 21:18 → M MS5PR 22:51 → M PCU 07-12 10:42
PROVIDERS: ADMIT Internal Medicine Nephrology; ATTEND Internal Medicine
DX: I13.0 Hypertensive heart and chronic kidney disease with heart failure and stage 1 through stage 4 chronic kidney disease, or unspecified chronic kidney disease (principal); I50.33 Acute on chronic diastolic (congestive) heart failure; N17.9 Acute kidney failure, unspecified; E87.0 Hyperosmolality and hypernatremia; N18.3 Chronic kidney disease, stage 3 (moderate); I95.89 Other hypotension; M81.0 Age-related osteoporosis without current pathological fracture; I25.10 Atherosclerotic heart disease of native coronary artery without angina pectoris; E03.9 Hypothyroidism, unspecified; E78.5 Hyperlipidemia, unspecified; M41.9 Scoliosis, unspecified; I73.9 Peripheral vascular disease, unspecified; E83.42 Hypomagnesemia; E87.6 Hypokalemia; E83.51 Hypocalcemia; E88.09 Other disorders of plasma-protein metabolism, not elsewhere classified; D63.0 Anemia in neoplastic disease; Z86.39 Personal history of other endocrine, nutritional and metabolic disease; Z95.5 Presence of coronary angioplasty implant and graft; Z95.820 Peripheral vascular angioplasty status with implants and grafts; Z96.642 Presence of left artificial hip joint; Z96.652 Presence of left artificial knee joint; Z87.891 Personal history of nicotine dependence; Z79.82 Long term (current) use of aspirin; Z98.84 Bariatric surgery status; Z91.040 Latex allergy status; Z79.899 Other long term (current) drug therapy

== ENCOUNTER 2016-07-21 10:42 | Inpatient (IN) | payer MEDICARE, MEDICAID ==
[~2016-07-21] VITALS: Ht 162.6 cm; Wt 64.4 kg
[2016-07-21] VITALS (8 sets, daily range): BP systolic 85–109; BP diastolic 41–67
[~2016-07-21 10:42] MED LIST changes: +ASPI81TAEC PO; +BACI500O74 EXT; +CALCTAB52 PO; +CYAN1000VL IM; +FERR325T3 PO; +FOLI1TAB2 PO; +FURO40TA2 PO; +GABA-282 PO; +LASI20TA PO; +MIDO25TA PO; +MULT1TAB10 PO; +NITR4TASL SL; +OXYC1TAB23 PO; +PANT40TA2 PO; +PLAV75TA38 PO; +POTA10CA PO; +PROC1INJ5 INJ; +SENN8.6C PO; +SUCR1TAB56 PO; +SYNT112T2 PO; +VITA200028 PO; +VITMTA PO; +ZOCO10TA PO; +[UNRECOGNIZED DRUG - CODE] PO
[2016-07-21 12:19] LABS: BASO % 0.2 % (0.0-1.0); EOS # 0.1 K/mm3 (0.0-0.50); EOS % 1.1 % (0.0-3.0); LARGE UNSTAINED CELL # 0.1 K/mm3 (0.0-0.4); LYMPH # 1.3 K/mm3 (1.5-4.5); LYMPH % 16.1 % (24.0-44.0); MEAN CORPUSCULAR HGB CONC 30.5 g/dl (32.0-36.5); MEAN CORPUSCULAR VOLUME 101.9 fl (80.0-96.0); MONO # 0.3 K/mm3 (0.0-0.8); MONO % 3.8 % (0.0-5.0); NEUTROPHILS # 6.1 K/mm3 (1.8-7.7); NEUTROPHILS % 77.8 % (36.0-66.0); PLATELET COUNT, AUTOMATED 251 k/mm3 (150-450); RED CELL DISTRIBUTION WIDTH 15.1 % (11.5-14.5); WHITE BLOOD COUNT 7.8 K/mm3 (4.0-10.0)
[2016-07-21 12:30] LABS: INR 0.97
[2016-07-21 12:44] LABS: ALBUMIN 1.7 GM/DL (3.2-5.2); ALBUMIN/GLOBULIN RATIO 0.59 (1.00-1.93); ALKALINE PHOSPHATASE 143 U/L (45-117); ALT/SGPT 31 U/L (12-78); ANION GAP 9 MEQ/L (8-16); AST/SGOT 25 U/L (15-37); BILIRUBIN,DIRECT 0.3 MG/DL (0.0-0.2); BILIRUBIN,TOTAL 0.6 MG/DL (0.2-1.0); BLOOD UREA NITROGEN 34 MG/DL (7-18); CALCIUM LEVEL 6.8 MG/DL (8.8-10.2); CARBON DIOXIDE LEVEL 29 MEQ/L (21-32); CHLORIDE LEVEL 106 MEQ/L (98-107); CREATININE FOR GFR 2.23 MG/DL (0.55-1.02); FREE T4 0.98 NG/DL (0.76-1.46); GLOMERULAR FILTRATION RATE 23.2 (>45); GLUCOSE, FASTING 77 MG/DL (80-110); POTASSIUM SERUM 3.7 MEQ/L (3.5-5.1); SODIUM LEVEL 144 MEQ/L (136-145); TOTAL PROTEIN 4.6 GM/DL (6.4-8.2)
--- NOTE | 2016-07-21 12:51 | REP ---
Pain after fall. PRIORS: None. TECHNIQUE: 4.5 mm contiguous transaxial sections were obtained from the skull base to the cerebral convexities with thin cuts through the posterior fossa without the administration of intravenous contrast. FINDINGS: The ventricles and sulci are consistent with the patient's age. There are no extra-axial fluid collections. There is no mass effect. The deep cerebral white matter is consistent with the patient's age. The orbital and petrous structures , cerebellopontine angles, and posterior fossa are unremarkable. The sella turcica, cavernous, and paracavernous structures are essentially unremarkable. The visualized portions of the paranasal sinuses and mastoid air cells are clear. Images of the skull base show no gross abnormality. IMPRESSION: Essentially unremarkable CT examination of the brain. Signed by Yohan Sims DO 07/21/2016 02:09 P
--- NOTE | 2016-07-21 13:37 | REP ---
Weakness. COMPARISON: Portable examination of 07/11/2016. There is slight but new left CP angle blunting with today's lateral view showing posterior costophrenic sulcus blunting. The heart is not enlarged. The lung pizano are otherwise clear and unchanged. There is no change in the osseous structures. IMPRESSION: Small left pleural effusion. Signed by Yohan Sims DO 07/21/2016 02:09 P
[2016-07-21] MEDS ORDERED: POTA10CA PO (13:47)
[2016-07-21] MEDS ORDERED: MIDO25TA PO (13:47)
[2016-07-21] MEDS ORDERED: FURO40TA2 PO (13:47)
[2016-07-21] MEDS: MIDODRINE 2.5 MG TAB PO SCH (16:00)
[2016-07-21] MEDS ORDERED: NS 1,000 ML IV SCH (16:00)
--- NOTE | 2016-07-21 17:11 | HPEPDOC ---
General Date of Admission Jul 21, 2016 at 14:00 Chief Complaint The patient is a 71-year-old female admitted with a reason for visit of Acute Renal Failure. History of Present Illness Ms. Gomez is a 71-year-old female with past medical history of CHF for which she was just seen for exasperation of in our hospital earlier this month, July 2016, hypothyroidism, CAD s/p angioplasty and stent placement, chronic back pain , chronic anemia, chronic hypotension who states that this morning when she got out of bed she tried to ambulates to her walker and acutely became weak. The patient states that she then fell backwards onto her bottom and was unable to get back up due to the generalized weakness. Patient states she also had a similar episode 3 days prior but did not fall. Patient denies loss of consciousness with the events, denies SOB, CP, n/v or associated heart palpitations. She also states that she felt her hands and legs become shaky during the event, however she denies being incontinent of bowel or urine, she denies biting her tongue or having blood in her mouth after the event, denies history of stroke or seizure history. Patient denies headaches or change in vision. Denies having experienced a fever or night sweats recently. Of note she was seen in our hospital recently due to exacerbation of her congestive heart failure; she was admitted to [facility] in June 2016 for dizziness, lightheadedness likely secondary to her low blood pressure and she was discharged from the hospital in late June 2016. During the stay at [facility] her diuretics were stopped due to the low blood pressure and she was discharged home without diuretics. Shortly after that she began holding fluid in her legs swelled up, her primary care doctor restarted her dose of Lasix 20 mg daily but she continued to gain weight. She then went to visit her local wire basket maker in [place], [place] where she was told she gained 30 pounds in 3 weeks and was advised to come to the hospital at that time. She was treated our facility for exasperation of CHF and pulmonary edema, after this event her Lasix therapy was increased. Home Medications Scheduled (Calcium 500 500-250-200 mg-mg-Unit) 1 Tab Tab 1 TAB PO BID (Reported) Aspirin (Aspirin EC) 81 Mg Tabec 81 MG PO DAILY (Reported) Bacitracin (Bacitracin Zinc) 1 Dose/28.35 Gm Oint 1 DOSE EXT BID (Reported) PATIENT USES ON TOES Clopidogrel Bisulfate (Plavix) 75 Mg Tab 75 MG PO DAILY (Reported) Cyanocobalamin (Cyanocobalamin) 1,000 Mcg/1 Ml Inj 1,000 MCG IM MTHLY (Reported ) PATIENTS STATES LAST TAKEN AT END OF MAY Epoetin Reinaldo (Procrit) 10,000 Unit/Ml Inj 10,000 UNIT INJ MTHLY (Reported) PATIENT STATES LAST TAKEN AT END OF MAY Ergocalciferol (Vitamin D2) 2,000 Unit Tab 2,000 UNIT PO DAILY (Reported) Ferrous Sulfate (Ferrous Sulfate) 325 Mg Tab 325 MG PO BID (Reported) Folic Acid (Folic Acid) 1 Mg Tab 1 MG PO DAILY (Reported) ALL OUT Furosemide (Furosemide) 40 Mg Tab 40 MG PO BID (Reported) Gabapentin (Gabapentin) 300 Mg Cap 300 MG PO BID (Reported) Levothyroxine Sodium (Synthroid) 112 Mcg Tab 112 MCG PO DAILY (Reported) Midodrine (Midodrine HCl) 2.5 Mg Tab 2.5 MG PO TID (Reported) Multivitamins *[facility] STOCKED* (Thera M Plus *[facility] STOCKED*) 1 Tab Tab 1 TAB PO BID (Reported) Pantoprazole Sodium (Pantoprazole Sodium) 40 Mg Tab 40 MG PO DAILY (Reported) Paricalcitol (Zemplar) 1 Mcg Cap 1 MCG PO DAILY (Reported) Potassium Chloride (Klor-Con M10) 10 Meq Tabcr 40 MEQ PO DAILY (Reported) Simvastatin (Zocor) 10 Mg Tab 10 MG PO QHS (Reported) Sucralfate (Sucralfate) 1 Gm Tab 1 GM PO ACHS (Reported) Scheduled PRN Nitroglycerin (Nitrostat) 0.4 Mg Subl 0.4 MG SL NITRO PRN PRN ANGINA (Reported) Oxycodone/Acetaminophen (Oxycodone/Acetaminophen 5-325 mg) 1 Tab Tab 1 TAB PO TID PRN PRN PAIN (Reported) Senna (Senna) 8.6 Mg Cap 2 CAP PO DAILY PRN PRN CONSTIPATION (Reported) Allergies Coded Allergies: Latex (Verified Allergy, Intermediate, BLISTERS, 07/10/12) Past Medical History Medical History Congestive heart failure Chronic hypotension Chronic kidney disease Hypothyroidism Coronary artery disease status post stent placement Chronic back pain Chronic anemia Surgical History Left knee replacement Ankle reconstruction Rotator cuff Carpal tunnel Wrist surgery Appendectomy Percutaneous transluminal coronary angioplasty s/p placement in 97 and 99 right Salpingo-oophorectomy Exploratory laparotomy Family History Father- prostate Mother- [place], DM2, Sister- DM2, HTN Social History * Smoker: former Smoker (the patient states that she quit smoking about 20 years ago, prior to this she smoked about 2 packs a day since she was teenager) Alcohol: Denies Drugs: denies Psychosocial History: No pertinent psych hx Lives at home by herself, states her sisters right next-door. Lives in [facility] Review of Symptoms Constitutional: Reports: Fatigue, Other (pt is not the best historian), Weakness (GENERALIZED), Denies: Chills, Fever, Malaise, Night Sweats, Weight Loss (she states that she thinks she has gained weight in the past week, cannot tell how much.) Eyes: Denies: Conjunctivae inflammation, Eyelid inflammation, Redness, Vision change Skin: Denies: Lesions, Rash Pulmonary: Denies: Cough, Dyspnea, Pleuritic Chest Pain Cardiovascular: Denies: Chest Pain, Edema, Lt Headedness, Orthopnea, Palpitations Gastrointestinal: Denies: Abdominal Pain, Diarrhea, Nausea, Vomiting Genitourinary: Denies: Incontinence Musculoskeletal: Reports: Back Pain (chronic) Neurological: Reports: Weakness (generalized), Denies: Numbness Psych: Reports: Mood Normal (seems to be some baseline dementia) Physical Examination General Exam: Positive: Alert, Cooperative, No Acute Distress Eye Exam: Positive: EOMI, Negative: Ptosis, Sclera icteric ENT Exam: Positive: Atraumatic, Mucous membr. moist/pink, Nares Patent, Pharynx Normal, Tongue Midline, Negative: Pharyngeal Edema Neck Exam: Positive: Supple, Negative: JVD Chest Exam: Positive: Clear to auscultation, Normal air movement, Negative: Rales, Rhonchi, Wheezing Heart Exam: Positive: Normal S1, Normal S2, Rate Normal, Regular Rhythm, Negative: Bradycardic, Gallops, Murmurs, Rubs, Tachycardic Telemetry: Positive: No significant arrhythmia Abdomen Exam: Positive: Normal bowel sounds, Soft, Negative: BS Hyperactive, BS Hypoactive, Hepatospenomegaly, Tenderness Extremity Exam: Negative: Clubbing, Cyanosis, Edema Neuro Exam: Positive: Cranial Nerves 3-12 NL, Normal Speech, Normal Tone, Sensation Intact, Strength at 5/5 X4 ext (L lower extremity seems slightly weaker than right lower extremity) Psych Exam: Positive: Mental status NL Vital Signs Vital Signs Date Time Temp Pulse Resp B/P Pulse Ox O2 Delivery O2 Flow Rate FiO2 07/21/16 14:35 96/51 07/21/16 14:27 72 97 07/21/16 11:12 18 Room Air 07/21/16 10:43 97.4 Laboratory Data Labs 24H Laboratory Tests 2 07/21/16 12:09: Aspartate Amino Transf (AST/SGOT) 25, Alanine Aminotransferase (ALT/SGPT) 31, Alkaline Phosphatase 143H, Total Bilirubin 0.6, Direct Bilirubin 0.3H, Albumin 1.7L, Albumin/Globulin Ratio 0.59L, Anion Gap 9, White Blood Count 7.8, Red Blood Count 3.57L, Hemoglobin 11.1L, Hematocrit 36.3, Mean Corpuscular Volume 101.9H, Mean Corpuscular Hemoglobin 31.0, Mean Corpuscular Hemoglobin Concent 30.5L, Red Cell Distribution Width 15.1H, Platelet Count 251, Neutrophils (%) ( Auto) 77.8H, Lymphocytes (%) (Auto) 16.1L, Monocytes (%) (Auto) 3.8, Eosinophils (%) (Auto) 1.1, Basophils (%) (Auto) 0.2, Neutrophils # (Auto) 6.1, Lymphocytes # (Auto) 1.3L, Monocytes # (Auto) 0.3, Eosinophils # (Auto) 0.1, Basophils # (Auto) 0.0, Calcium Level 6.8L, Creatine Kinase MB 1.1, Creatine Kinase MB Relative Index 2.39, Free Thyroxine 0.98, Glomerular Filtration Rate 23.2L, Large Unclassified Cells # 0.1, Large Unclassified Cells % 1.0, Thyroid Stimulating Hormone (TSH) 2.280, Total Creatine Kinase 46, Total Protein 4.6L, Troponin I < 0.02 07/21/16 12:11: Activated Partial Thromboplast Time 23.1L, B-Type Natriuretic Peptide 27.4, Prothromb Time International Ratio 0.97, Prothrombin Time 13.0 07/21/16 13:20: Urine Amorphous Sediment , Urine Appearance CLEAR, Urine Color YELLOW, Urine pH 5.0, Urine Specific [place] 1.011, Urine Protein NEGATIVE, Urine Glucose (UA) NEGATIVE, Urine Ketones NEGATIVE, Urine Urobilinogen 0.2, Urine Bilirubin NEGATIVE, Urine Leukocyte Esterase NEGATIVE, Urine Bacteria (Auto) NEGATIVE, Urine Blood NEGATIVE, Urine Calcium Carbonate Cryst(Auto) , Urine Calcium Oxalate Cryst (Auto) , Urine Calcium Phosphate Hortencia (Auto) , Urine Cellular Casts , Urine Cystine Crystals , Urine Granular Casts (Auto) , Urine Hyaline Casts (Auto) 6, Urine Leucine Crystals , Urine Mucus (Auto) , Urine Nitrite NEGATIVE, Urine Oval Fat Bodies (Auto) , Urine RBC (Auto) 1, Urine Renal Epithelial Cells , Urine Sperm (Auto) , Urine Squamous Epithelial Cells 0, Urine Transitional Epithelial Cells , Urine Trichomonas (Auto) , Urine Triple Phosphate Cryst (Auto) , Urine Tyrosine Crystals , Urine Uric Acid Crystals ( Auto) , Urine WBC (Auto) 1, Urine Waxy Casts (Auto) , Urine Yeast-Like Cells ( Auto) CBC/BMP Laboratory Tests 07/21/16 12:09 Red Blood Count 3.57 L, Mean Corpuscular Volume 101.9 H, Mean Corpuscular Hemoglobin 31.0, Mean Corpuscular Hemoglobin Concent 30.5 L, Red Cell Distribution Width 15.1 H, Neutrophils (%) (Auto) 77.8 H, Lymphocytes (%) (Auto ) 16.1 L, Monocytes (%) (Auto) 3.8, Eosinophils (%) (Auto) 1.1, Basophils (%) ( Auto) 0.2, Neutrophils # (Auto) 6.1, Lymphocytes # (Auto) 1.3 L, Monocytes # ( Auto) 0.3, Eosinophils # (Auto) 0.1, Basophils # (Auto) 0.0 Microbiology Microbiology 07/21/16 Blood Culture, Received Pending 07/21/16 Blood Culture, Received Pending 07/21/16 Urine Culture, Received Pending Problems (1) MARTINA (acute kidney injury) Status: Acute Response to Treatment: Stable Problem Text: dehydrated, Likely secondary to increased dosage of Lasix medical therapy Will hold Lasix for now will hold K supplementation in light of above creatine currently 2.23 with baseline around 1.5 Gentle fluid hydration normal saline at rate of 60 recheck creatinine in the morning (2) Weakness Permanent Comment: thyroid ordered and pending Stable Continue home medication Last Edited By: Chau Arechiga DO on Jul 21, 2016 16: 01 Status: Acute Response to Treatment: Stable Problem Text: Likely secondary to acute kidney injury from dehydration due to increased Lasix medical therapy EKG in ED unremarkable, benign for malignant finding or arrhythmogenic focus PT/OT ordered Patient states that she is still generally feeling weak on exam continue to monitor Gentle fluid hydration Blood culture and urine culture pending (3) History of congestive heart failure Status: Acute Response to Treatment: Stable Problem Text: Was seen a couple weeks ago in the hospital for exacerbation of CHF ECHO from 07-11-16 showed: borderline left atrial enlargement with LV diastolic function impairment normal left atrial pressure. Normal right heart chamber, mild pulmonary hypertension elevated ventral venous pressure, slight aortic valvular stenosis without stenosis mild eccentric insufficiency. LVEF 60% Patient seems dehydrated due to increased Lasix therapy recently Patient was nonedematous on physical exam and did not complain of shortness of breath, no JVD was appreciated Will hold Lasix therapy for now in light of dehydrated state Continue to monitor, I and O's daily (4) Hypothyroid Status: Chronic Response to Treatment: Stable Problem Text: Thyroid ordered and pending Stable Continue medical therapy from home (5) Chronic hypotension Status: Chronic Response to Treatment: Stable Problem Text: Continue midodrine therapy inpatient from home Blood pressure 108/51 Usually runs systolic 80-90 (6) Ulcer Status: Chronic Response to Treatment: Stable Problem Text: Patient presents with sacral decubitus ulcer stage II will continue to monitor and nursing staff will reposition patient every 2 hours (7) Coronary artery disease Permanent Comment: Status post stent placement Stable Last Edited By: Chau Arechiga DO on Jul 21, 2016 15:56 Status: Chronic Response to Treatment: Stable Problem Text: Stable Status post stent placement (8) History of obesity Permanent Comment: Status post gastric bypass surgery Last Edited By: Chau Arechiga DO on Jul 21, 2016 15:56 Status: Acute Problem Text: Status post gastric bypass surgery (9) Chronic back pain Permanent Comment: Stable Percocet medical therapy continued from home Last Edited By: Chau Arechiga DO on Jul 21, 2016 15:56 Status: Chronic Response to Treatment: Stable Problem Text: Stable Percocet medical therapy from home continued as needed for pain (10) DVT prophylaxis Status: Acute Response to Treatment: Stable Problem Text: SCD and teds Plan / VTE VTE Prophylaxis Ordered?: Yes (SCD & TEDS) GME ATTESTATION GME ATTESTATION My preceptor for this patient encounter was physically present in the building during the encounter and was fully available. As needed, all aspects of the patient interview, examination, medical decision making process, and medical care plan development were reviewed and approved by the preceptor. Preceptor is aware and concurs with the plan as stated in the body of this note and will attest to such by his/her cosignature. CHAU ARECHIGA DO Jul 21, 2016 17:11
[2016-07-21] MEDS: CLOPIDOGREL 75 MG TAB PO SCH (17:46)
[2016-07-21] MEDS: ASPIRIN 81 MG ENTERIC TAB PO SCH (17:47)
[2016-07-21] MEDS: FOLIC ACID 1 MG TAB PO SCH (17:47)
[2016-07-21] MEDS: PERCOCET 5MG/325MG TAB PO PRN (18:45)
[2016-07-21] MEDS: FERROUS SULFATE 325MG TAB PO SCH (21:00)
[2016-07-21] MEDS: MULTIVITAMINS/MINERALS THERAP 1 TAB PO SCH (23:08)
[2016-07-21] MEDS: SIMVASTATIN 10 MG TAB PO SCH (23:08)
[2016-07-21] MEDS: GABAPENTIN 300 MG CAP PO SCH (23:09)
[2016-07-22] MEDS ORDERED: NS 500 ML IV ONE (01:00)
[2016-07-22 02:07] VITALS: BP 89/54
[2016-07-22 05:13] VITALS: BP_SYST 153; BP_SYST 88; BP_SYST 91; BP_DIAS 119; BP_DIAS 51
[2016-07-22] MEDS ORDERED: ACETAMINOPHEN TAB 650MG DOSE (2X325MG) PO ONE (05:30)
[2016-07-22 05:55] LABS: BASO % 0.4 % (0.0-1.0); EOS # 0.1 K/mm3 (0.0-0.50); EOS % 1.7 % (0.0-3.0); LARGE UNSTAINED CELL # 0.1 K/mm3 (0.0-0.4); LARGE UNSTAINED CELL % 1.3 % (0.0-4.0); LYMPH # 1.9 K/mm3 (1.5-4.5); LYMPH % 28.5 % (24.0-44.0); MEAN CORPUSCULAR HGB CONC 31.4 g/dl (32.0-36.5); MEAN CORPUSCULAR VOLUME 101.7 fl (80.0-96.0); MONO # 0.3 K/mm3 (0.0-0.8); MONO % 4.6 % (0.0-5.0); NEUTROPHILS % 63.6 % (36.0-66.0); PLATELET COUNT, AUTOMATED 216 k/mm3 (150-450); RED CELL DISTRIBUTION WIDTH 15.5 % (11.5-14.5); WHITE BLOOD COUNT 6.3 K/mm3 (4.0-10.0)
[2016-07-22] MEDS: LEVOTHYROXINE 0.112 MG TAB (112 MCG) PO SCH (06:05)
[2016-07-22] MEDS: MIDODRINE 2.5 MG TAB PO SCH ×3 (06:05→16:25)
[2016-07-22 06:16] LABS: ALBUMIN 1.3 GM/DL (3.2-5.2); CALCIUM LEVEL 6.6 MG/DL (8.8-10.2); CREATININE FOR GFR 1.74 MG/DL (0.55-1.02); GLOMERULAR FILTRATION RATE 30.9 (>45); PHOSPHORUS LEVEL 3.3 MG/DL (2.5-4.9); POTASSIUM SERUM 3.4 MEQ/L (3.5-5.1)
[2016-07-22 08:00] VITALS: BP 97/53
[2016-07-22] MEDS ORDERED: POTASSIUM CHLORIDE 10 MEQ SR TABLET PO ONE (08:00)
[2016-07-22] MEDS: PANTOPRAZOLE 40MG TAB (PROTONIX) PO SCH (09:04)
[2016-07-22] MEDS: MULTIVITAMINS/MINERALS THERAP 1 TAB PO SCH ×2 (09:04→21:41)
[2016-07-22] MEDS: FERROUS SULFATE 325MG TAB PO SCH ×2 (09:04→21:41)
[2016-07-22] MEDS: FOLIC ACID 1 MG TAB PO SCH (09:04)
[2016-07-22] MEDS: GABAPENTIN 300 MG CAP PO SCH ×2 (09:04→21:42)
[2016-07-22] MEDS: CLOPIDOGREL 75 MG TAB PO SCH (09:04)
[2016-07-22] MEDS: ASPIRIN 81 MG ENTERIC TAB PO SCH (09:04)
--- NOTE | 2016-07-22 09:17 | ECGEPIP ---
Stationary ECG Study [facility] - ED Test Date: 2016-07-21 Pat Name: JOSE COOMBS Department: Room: - Gender: F Diploma Pharmacy Technician: chavez : 1945 Requested By: Kalen Tolbert Order Number: [id number] Reading MD: Jamee Ortiz Measurements Intervals [place] Rate: 75 P: 70 KS: 176 QRS: 47 QRSD: 93 T: 40 QT: 395 QTc: 442 Interpretive Statements SINUS RHYTHM NONSPECIFIC T-WAVE ABNORMALITY SIMILAR 07/11/16 Electronically Signed On 07-22-2016 9:17:17 EDT by Jamee Ortiz
[2016-07-22 12:00] VITALS: BP 96/52
--- NOTE | 2016-07-22 14:15 | IPNPDOC ---
Text Note Date of Service The patient was seen on 07/22/16. NOTE Subjective: Patient is a 71 year old female with a PMHx of CHF, Chronic Hypotension (on Midodrine), CKD3, Hypothyroidism, CAD s/p stent, Chronic back pain and chronic anemia who was recently admitted on 07/12 - 07/17 for CHF exacerbation and was fluid overloaded. She presented to the ER this time because of weakness while ambulating and had fallen. She denies LOC or head trauma. In the ER she was found to have hypotension and acute kidney injury. Patient was seen and examined at the bedside. She denied any problems today. Objective: Vitals (See below) General: Lying in bed, no acute distress, comfortable, AAOx3 HEENT: NC, AT CVS: RRR, +S1S2 Lungs: Fair air entry b/l, no crackles appreciated Abdomen: Soft, ND, NT, +BSx4 Extremities: +PPx4, No pitting edema noted, - Calf tenderness Assessment and plan: 1. Acute kidney injury - likely 2/2 pre-renal etiology 2/2 hypovolemia and hypotension 2/2 excessive diuresis - Presented with weakness and fall - Cr was elevated to 2.23 from baseline (1.7-1.8) - This morning her Cr is now at baseline 1.74 - Will hold off on additional IV fluid hydration (re: avoid heart failure exacerbation) 2. Weakness / Fall - likely 2/2 hypotension, less likely 2/2 hypothyroidism - orthostatic vital signs have been negative - s/p IV fluid hydration - Will get PT / OT evaluation 3. Diastolic CHF - no evidence of exacerbation at this time - ECHO 07/2016: Preserved EF at 60%, Stage 1 DD - c/w strict ins / outs, daily weights, head of bed elevation - Diuretics on hold - Will likely need to be discharged home with low dose lasix and early follow up with Primary care provider / Nephrology 4. Hypothyoidism - c/w Levothyroxine 5. Chronic hypotension - Blood pressure, SBP typically in 90s-100s - c/w Midodrine 6. Sacral decubitus ulcer stage 2 - c/w wound care and repositioning 7. CAD s/p stent - c/w ASA, Plavix, Atorvastatin 8. Hx of obesity - s/p Gastric bypass surgery 9. Chronic back pain - c/w Percocet PRN pain 10. Macrocytic anemia 11. DVT prophylaxis - c/w SCDs VS,Fishbone, I+O VS, Fishbone, I+O Laboratory Tests 07/22/16 00:59 07/22/16 05:40 Anion Gap 7 L, Red Blood Count 2.87 L, Mean Corpuscular Volume 101.7 H, Mean Corpuscular Hemoglobin 32.0, Mean Corpuscular Hemoglobin Concent 31.4 L, Red Cell Distribution Width 15.5 H, Neutrophils (%) (Auto) 63.6, Lymphocytes (%) ( Auto) 28.5, Monocytes (%) (Auto) 4.6, Eosinophils (%) (Auto) 1.7, Basophils (%) (Auto) 0.4, Neutrophils # (Auto) 4.0, Lymphocytes # (Auto) 1.9, Monocytes # ( Auto) 0.3, Eosinophils # (Auto) 0.1, Basophils # (Auto) 0.0 Vital Signs Date Time Temp Pulse Resp B/P Pulse Ox O2 Delivery O2 Flow Rate FiO2 07/22/16 12:00 98.9 68 18 96/52 95 Room Air I&O- Last 24 Hours up to 6 AM 07/22/16 06:00 Intake Total 120 ml Output Total 101 ml Balance 19 ml ESTRELLA GRIFFIN MD Jul 22, 2016 14:15
[2016-07-22 16:00] VITALS: BP 91/53
[2016-07-22] MEDS: PERCOCET 5MG/325MG TAB PO PRN (16:26)
[2016-07-22 20:00] VITALS: BP 102/54
[2016-07-22] MEDS: SIMVASTATIN 10 MG TAB PO SCH (21:42)
[2016-07-22] MEDS: ACETAMINOPHEN TAB 650MG DOSE (2X325MG) PO PRN (23:49)
[2016-07-23] VITALS (7 sets, daily range): BP systolic 74–114; BP diastolic 47–68
[2016-07-23 00:33] LABS: POTASSIUM SERUM 3.8 MEQ/L (3.5-5.1)
[2016-07-23 06:31] LABS: BASO % 0.4 % (0.0-1.0); EOS # 0.1 K/mm3 (0.0-0.50); EOS % 1.2 % (0.0-3.0); LARGE UNSTAINED CELL # 0.1 K/mm3 (0.0-0.4); LARGE UNSTAINED CELL % 1.3 % (0.0-4.0); LYMPH # 1.9 K/mm3 (1.5-4.5); LYMPH % 27.5 % (24.0-44.0); MEAN CORPUSCULAR HEMOGLOBIN 31.5 pg (27.0-33.0); MEAN CORPUSCULAR HGB CONC 30.7 g/dl (32.0-36.5); MEAN CORPUSCULAR VOLUME 102.6 fl (80.0-96.0); MONO # 0.3 K/mm3 (0.0-0.8); MONO % 3.7 % (0.0-5.0); NEUTROPHILS # 4.4 K/mm3 (1.8-7.7); NEUTROPHILS % 65.9 % (36.0-66.0); PLATELET COUNT, AUTOMATED 216 k/mm3 (150-450); RED CELL DISTRIBUTION WIDTH 15.4 % (11.5-14.5); WHITE BLOOD COUNT 6.7 K/mm3 (4.0-10.0)
[2016-07-23] MEDS: LEVOTHYROXINE 0.112 MG TAB (112 MCG) PO SCH (06:35)
[2016-07-23] MEDS: MIDODRINE 2.5 MG TAB PO SCH ×3 (06:35→17:03)
[2016-07-23 06:49] LABS: ALBUMIN 1.3 GM/DL (3.2-5.2); CALCIUM LEVEL 6.7 MG/DL (8.8-10.2); CREATININE FOR GFR 1.67 MG/DL (0.55-1.02); GLOMERULAR FILTRATION RATE 32.4 (>45); PHOSPHORUS LEVEL 2.9 MG/DL (2.5-4.9); POTASSIUM SERUM 3.3 MEQ/L (3.5-5.1)
[2016-07-23] MEDS ORDERED: POTASSIUM CHLORIDE 10 MEQ SR TABLET PO ONE (07:00)
[2016-07-23] MEDS: GABAPENTIN 300 MG CAP PO SCH (09:06)
[2016-07-23] MEDS: FOLIC ACID 1 MG TAB PO SCH (09:06)
[2016-07-23] MEDS: CLOPIDOGREL 75 MG TAB PO SCH (09:07)
[2016-07-23] MEDS: FERROUS SULFATE 325MG TAB PO SCH ×2 (09:07→21:29)
[2016-07-23] MEDS: MULTIVITAMINS/MINERALS THERAP 1 TAB PO SCH ×2 (09:07→21:30)
[2016-07-23] MEDS: ASPIRIN 81 MG ENTERIC TAB PO SCH (09:07)
[2016-07-23] MEDS: PANTOPRAZOLE 40MG TAB (PROTONIX) PO SCH (09:07)
--- NOTE | 2016-07-23 10:57 | IPNPDOC ---
Text Note Date of Service The patient was seen on 07/23/16. NOTE Subjective: Patient is a 71 year old female with a PMHx of CHF, Chronic Hypotension (on Midodrine), CKD3, Hypothyroidism, CAD s/p stent, Chronic back pain and chronic anemia who was recently admitted on 07/12 - 07/17 for CHF exacerbation and was fluid overloaded. She presented to the ER this time because of weakness while ambulating and had fallen. She denies LOC or head trauma. In the ER she was found to have hypotension and acute kidney injury. Patient was seen and examined at the bedside. She denied any problems today. Objective: Vitals (See below) General: Lying in bed, no acute distress, comfortable, AAOx3 HEENT: NC, AT CVS: RRR, +S1S2 Lungs: Fair air entry b/l, no crackles appreciated Abdomen: Soft, ND, NT, +BSx4 Extremities: +PPx4, No pitting edema noted, - Calf tenderness Assessment and plan: 1. Weakness / Fall - likely 2/2 hypotension, less likely 2/2 hypothyroidism, possible neurologic etiology - orthostatic vital signs have been negative - s/p IV fluid hydration - Will get MRI Brain without contrast and EEG - PT/OT currently following 2. Acute kidney injury - likely 2/2 pre-renal etiology 2/2 hypovolemia and hypotension 2/2 excessive diuresis - Presented with weakness and fall - Cr was elevated to 2.23 from baseline (1.7-1.8) - This morning her Cr is now at baseline 1.74 - Will hold off on additional IV fluid hydration (re: avoid heart failure exacerbation) 3. Diastolic CHF - no evidence of exacerbation at this time - ECHO 07/2016: Preserved EF at 60%, Stage 1 DD - c/w strict ins / outs, daily weights, head of bed elevation - continue to hold diuretics - Will restart diuretics tomorrow (07/24) 4. Hypothyroidism - c/w Levothyroxine 5. Chronic hypotension - Blood pressure, SBP typically in 90s-100s - c/w Midodrine 6. Sacral decubitus ulcer stage 2 - c/w wound care and repositioning 7. CAD s/p stent - c/w ASA, Plavix, Atorvastatin 8. Hx of obesity - s/p Gastric bypass surgery 9. Chronic back pain - c/w Percocet PRN pain 10. Macrocytic anemia 11. DVT prophylaxis - c/w SCDs Disposition: - Will evaluate for etiology of dizziness / tremor - Continue with physical therapy as tolerated VS,Fishbone, I+O VS, Fishbone, I+O Laboratory Tests 07/23/16 00:07 07/23/16 06:14 Anion Gap 8, Red Blood Count 2.80 L, Mean Corpuscular Volume 102.6 H, Mean Corpuscular Hemoglobin 31.5, Mean Corpuscular Hemoglobin Concent 30.7 L, Red Cell Distribution Width 15.4 H, Neutrophils (%) (Auto) 65.9, Lymphocytes (%) ( Auto) 27.5, Monocytes (%) (Auto) 3.7, Eosinophils (%) (Auto) 1.2, Basophils (%) (Auto) 0.4, Neutrophils # (Auto) 4.4, Lymphocytes # (Auto) 1.9, Monocytes # ( Auto) 0.3, Eosinophils # (Auto) 0.1, Basophils # (Auto) 0.0 Vital Signs Date Time Temp Pulse Resp B/P Pulse Ox O2 Delivery O2 Flow Rate FiO2 07/23/16 08:00 64 101/56 63 96/51 63 103/60 07/23/16 08:00 97.8 18 97 Room Air I&O- Last 24 Hours up to 6 AM 07/23/16 06:00 Intake Total 805 ml Output Total 200 ml Balance 605 ml ESTRELLA GRIFFIN MD Jul 23, 2016 10:57
[2016-07-23] MEDS: ACETAMINOPHEN TAB 650MG DOSE (2X325MG) PO PRN (12:32)
--- NOTE | 2016-07-23 16:54 | REP ---
MR BRAIN WITHOUT CONTRAST: HISTORY: Vertigo. An area of increased signal intensity on T2 weighted images is present in the left basal ganglia. This represents an old lacunar infarction. Several punctate areas of increased signal intensity on T2 weighted images are present in the periventricular and subcortical white matter. This represents small vessel ischemic disease. There is no intraparenchymal hemorrhage, acute infarct, mass or midline shift. The ventricular system and cortical sulci as well as subarachnoid space and the posterior fossa are dilated consistent with mild volume loss. There is no extracerebral collection. Mucosal thickening is present in the left maxillary sinus. The mastoid air cells are clear. IMPRESSION: 1. Old left basal ganglia lacunar infarction. 2. Small vessel ischemic disease. 3. Mild volume loss. Signed by Adrian Lucio MD 07/23/2016 04:57 P
[2016-07-23] MEDS: SIMVASTATIN 10 MG TAB PO SCH (21:29)
[2016-07-23] MEDS: GABAPENTIN 100 MG CAP PO SCH (21:30)
[2016-07-24 03:59] VITALS: BP_SYST 82; BP_SYST 86; BP_SYST 93; BP_DIAS 46; BP_DIAS 50; BP_DIAS 55
[2016-07-24 05:26] LABS: BASO % 0.3 % (0.0-1.0); EOS # 0.1 K/mm3 (0.0-0.50); EOS % 0.7 % (0.0-3.0); LARGE UNSTAINED CELL # 0.1 K/mm3 (0.0-0.4); LARGE UNSTAINED CELL % 1.3 % (0.0-4.0); LYMPH # 1.8 K/mm3 (1.5-4.5); LYMPH % 18.1 % (24.0-44.0); MEAN CORPUSCULAR HEMOGLOBIN 31.8 pg (27.0-33.0); MEAN CORPUSCULAR HGB CONC 30.6 g/dl (32.0-36.5); MONO # 0.4 K/mm3 (0.0-0.8); MONO % 3.9 % (0.0-5.0); NEUTROPHILS # 7.5 K/mm3 (1.8-7.7); NEUTROPHILS % 75.8 % (36.0-66.0); PLATELET COUNT, AUTOMATED 214 k/mm3 (150-450); RED CELL DISTRIBUTION WIDTH 15.4 % (11.5-14.5); WHITE BLOOD COUNT 9.9 K/mm3 (4.0-10.0)
[2016-07-24 06:04] LABS: ALBUMIN 1.3 GM/DL (3.2-5.2); CREATININE FOR GFR 1.94 MG/DL (0.55-1.02); GLOMERULAR FILTRATION RATE 27.2 (>45); PHOSPHORUS LEVEL 2.6 MG/DL (2.5-4.9); POTASSIUM SERUM 3.8 MEQ/L (3.5-5.1)
[2016-07-24] MEDS: MIDODRINE 2.5 MG TAB PO SCH (06:13)
[2016-07-24] MEDS: LEVOTHYROXINE 0.112 MG TAB (112 MCG) PO SCH (06:13)
[2016-07-24 08:00] VITALS: BP_SYST 100; BP_SYST 103; BP_SYST 98; BP_DIAS 50; BP_DIAS 53; BP_DIAS 57
--- NOTE | 2016-07-24 08:23 | REP ---
Digital diagnostic bilateral mammography with CAD: History: Left breast skin changes. Comparison mammography is from [facility] dated April 06, 2010. The patient relates bariatric surgery procedure in 2010 with weight loss in the interval. Mammographic findings: Both breasts are considerably smaller. There is diffuse stromal thickening. In addition, there is diffuse moderate dermal thickening involving both breasts. Periareolar skin on the left measures up to 14 mm in thickness. That on the right in the similar periareolar location measures up to 10 mm. The stromal thickening is common after significant weight loss due to bariatric surgery. The skin thickening is of uncertain significance. Possibilities include lymphatic obstruction, cardiac failure, renal failure, hypoalbuminemia and certain dermatologic conditions. Inflammatory breast carcinoma can cause diffuse skin thickening but bilateral and symmetric involvement would be unlikely. There is no visible adenopathy. No mass lesion is seen in either breast. There is a grouping of coarse dystrophic appearing calcifications in the superomedial quadrant of the left breast. These are new from prior mammography but appear benign. There are inspissated benign ductal secretory calcifications noted bilaterally as well. Impression: BIRADS category 4 suspicious breast imaging with diffuse bilateral skin thickening. Differential possibilities include bilateral lymphatic obstruction, renal failure, hypoalbuminemia, CHF, certain dermatologic conditions. Consider dermatologic biopsy. BI-RADS/ACR category 4 mammogram. Suspicious abnormality - biopsy should be considered. Usually requires biopsy. This mammogram was interpreted with the aid of an FDA-approved computer-aided detection system. The patient states she had a clinical breast exam in July 2016. The patient letter being requested is M4. Signed by Meño Puente MD 07/24/2016 03:36 P
[2016-07-24] MEDS: GABAPENTIN 100 MG CAP PO SCH ×2 (08:55→20:09)
[2016-07-24] MEDS: MULTIVITAMINS/MINERALS THERAP 1 TAB PO SCH ×2 (08:55→20:09)
[2016-07-24] MEDS: FOLIC ACID 1 MG TAB PO SCH (08:55)
[2016-07-24] MEDS: CLOPIDOGREL 75 MG TAB PO SCH (08:55)
[2016-07-24] MEDS: FERROUS SULFATE 325MG TAB PO SCH ×2 (08:55→20:09)
[2016-07-24] MEDS: ASPIRIN 81 MG ENTERIC TAB PO SCH (08:55)
[2016-07-24] MEDS: PANTOPRAZOLE 40MG TAB (PROTONIX) PO SCH (08:55)
--- NOTE | 2016-07-24 10:21 | REP ---
Portable chest, single AP view, the patient upright: Comparison is 07/21/2016. The small left pleural effusion identified on the comparison study has resolved. The lung pizano are clear. Cardiac size is normal. The julien, mediastinum, and bony thorax are unremarkable. Impression: No acute cardiopulmonary findings. The small left pleural effusion identified on the comparison study has resolved. Signed by Nathan Hsu MD 07/24/2016 10:12 A
--- NOTE | 2016-07-24 10:34 | IPN ---
DATE: 07/24/2016 Patient continues to have tremors and hypotension when she ambulates. She has no chest pain, pressure, tightness, palpitations, lightheadedness. No chest pain, shortness of breath. Temperature 98.8, pulse 69, respiratory rate 18, blood pressure 98/50 standing, supine is 103/57. Generally, awake, alert, oriented times three, answering questions appropriately. No respiratory distress or use of respiratory accessory muscles. Heart: S1, S2. Sinus rhythm. Lungs: Diminished breath sounds. No crackles or rales. Abdomen: Soft, nontender, nondistended. Positive bowel sounds all four quadrants. Extremities: No pitting edema or calf tenderness. LABORATORY DATA: White count 9.9, hemoglobin 9.6, hematocrit 31, platelet count 214. Sodium 144, potassium 3.8, chloride 113, bicarbonate 24, BUN 31, creatinine 1.94, glucose 99. Albumin of 1.3. Microbiology 07/21 Klebsiella urine culture. Clostridium difficile 07/22: No Clostridium difficile. ASSESSMENT AND PLAN: This is a 71-year-old female with history of congestive heart failure (CHF), chronic hypotension on midodrine, chronic kidney disease stage III, hypothyroidism, coronary artery disease (CAD), stent, chronic back pain, chronic anemia, admitted on 07/12 to 07/17 for CHF with fluid overloaded, presented to the ER with difficulty ambulating and falling, found to have acute on chronic renal failure, hypotension due to over diuresis. IMPRESSION: 1. Weakness and fall and tremors secondary to orthostatic hypotension status post IV fluid hydration. MRI of the brain is negative. Will consult neurology regarding tremors. Physical therapy (PT) evaluating the patient for clearance. 2. Acute kidney injury most likely per renal due to Lasix. Baseline creatinine is 1.7, currently at 1.9. Will check a chest x-ray this morning and resume gentle hydration if still orthostatic. 3. Diastolic heart failure. No exacerbation. Ejection fraction (CF) of 60%. Hold diuretics due to orthostatic hypotension. 4. Hypothyroidism on levothyroxine. 5. Chronic hypotension. Increase the midodrine. 6. Sacral decubitus stage II, wound care and repositioning. 7. Coronary artery disease (CAD) with stent, on aspirin, Plavix, atorvastatin. 8. Obesity. Gastric bypass previously. 9. Chronic back pain. Percocet as needed. 10. Macrocytic anemia, stable. 11. Deep venous thrombosis (DVT) prophylaxis with sequential compression devices (SCD). 12. Left sided breast nodule, some thickening bilaterally. Patient follows with primary care and biopsy as needed. 13. Abnormal urinalysis with Klebsiella in the urine. Recheck UA, urine culture and sensitivity, ceftriaxone for 3 days.
[2016-07-24] MEDS: cefTRIAXone SOD 1 GM in D5W MINI-BAG PLUS 50 ML IV SCH (10:41)
[2016-07-24] MEDS: MIDODRINE 5 MG TAB PO SCH ×2 (11:31→15:25)
[2016-07-24 12:00] VITALS: BP 110/56
[2016-07-24 16:00] VITALS: BP_SYST 105; BP_SYST 107; BP_SYST 110; BP_DIAS 53; BP_DIAS 56; BP_DIAS 58
[2016-07-24 20:00] VITALS: BP 100/50
[2016-07-24] MEDS: SIMVASTATIN 10 MG TAB PO SCH (20:09)
[2016-07-25] VITALS (8 sets, daily range): BP systolic 58–104; BP diastolic 40–60
[2016-07-25] MEDS: LEVOTHYROXINE 0.112 MG TAB (112 MCG) PO SCH (05:20)
[2016-07-25 05:58] LABS: BASO % 0.3 % (0.0-1.0); EOS # 0.1 K/mm3 (0.0-0.50); EOS % 0.8 % (0.0-3.0); LARGE UNSTAINED CELL # 0.1 K/mm3 (0.0-0.4); LARGE UNSTAINED CELL % 1.4 % (0.0-4.0); LYMPH # 1.6 K/mm3 (1.5-4.5); LYMPH % 17.1 % (24.0-44.0); MEAN CORPUSCULAR HEMOGLOBIN 31.8 pg (27.0-33.0); MEAN CORPUSCULAR HGB CONC 30.8 g/dl (32.0-36.5); MEAN CORPUSCULAR VOLUME 103.3 fl (80.0-96.0); MONO # 0.4 K/mm3 (0.0-0.8); MONO % 4.4 % (0.0-5.0); NEUTROPHILS # 7.1 K/mm3 (1.8-7.7); PLATELET COUNT, AUTOMATED 192 k/mm3 (150-450); RED CELL DISTRIBUTION WIDTH 15.4 % (11.5-14.5); WHITE BLOOD COUNT 9.3 K/mm3 (4.0-10.0)
[2016-07-25 06:15] LABS: ALBUMIN 1.2 GM/DL (3.2-5.2); CALCIUM LEVEL 6.6 MG/DL (8.8-10.2); CREATININE FOR GFR 1.66 MG/DL (0.55-1.02); GLOMERULAR FILTRATION RATE 32.6 (>45); PHOSPHORUS LEVEL 2.6 MG/DL (2.5-4.9); POTASSIUM SERUM 4.1 MEQ/L (3.5-5.1)
--- NOTE | 2016-07-25 07:07 | EEG ---
DATE OF PROCEDURE: 07/23/2016 REFERRING PHYSICIAN: Dr. Lake Griffin. EEG NUMBER: [id number]. DIAGNOSIS: Shaking, rule out seizure. HISTORY: Patient is a 71-year-old woman who was admitted at [facility] due to acute renal failure. She has been experiencing weakness of legs and shaking of upper extremities. This EEG was done to rule out epileptic potential. She is currently taking aspirin, Plavix, midodrine, gabapentin, Protonix, etc. TECHNICAL DESCRIPTION: This digital EEG was recorded by 21 scalp, ear and two EKG electrodes and was reviewed in bipolar and referential montages following reformatting in 10-20 international electrode placement system. INTERPRETATION: The patient was noted to be in awake and drowsy states during this EEG. Resting awake background rhythm consisted of 8 Hertz alpha activity measuring 15-40 microvolts in amplitude, symmetric and reactive to eye opening. Attenuation of posterior dominant was seen during transition into drowsiness. Anteriorly low voltage mixed frequencies were noted. Stage I and II sleep were reviewed and were symmetric bilaterally. Hyperventilation could not be performed. Photic stimulation remained unremarkable. EKG revealed normal sinus rhythm. No focal, lateralizing or epileptiform abnormalities were seen. No clinical or electrographic seizures were recorded. CONCLUSION: This EEG in awake, drowsy states, stage I and II sleep is within normal limits.
[2016-07-25] MEDS: FERROUS SULFATE 325MG TAB PO SCH ×2 (08:43→20:29)
[2016-07-25] MEDS: FOLIC ACID 1 MG TAB PO SCH (08:43)
[2016-07-25] MEDS: PANTOPRAZOLE 40MG TAB (PROTONIX) PO SCH (08:43)
[2016-07-25] MEDS: ASPIRIN 81 MG ENTERIC TAB PO SCH (08:43)
[2016-07-25] MEDS: CLOPIDOGREL 75 MG TAB PO SCH (08:43)
[2016-07-25] MEDS: MIDODRINE 5 MG TAB PO SCH ×3 (08:43→15:38)
[2016-07-25] MEDS: MULTIVITAMINS/MINERALS THERAP 1 TAB PO SCH ×2 (08:43→20:30)
[2016-07-25] MEDS: cefTRIAXone SOD 1 GM in D5W MINI-BAG PLUS 50 ML IV SCH (08:43)
[2016-07-25] MEDS: GABAPENTIN 100 MG CAP PO SCH ×2 (08:43→20:30)
[2016-07-25] MEDS ORDERED: SODIUM CHLORIDE 0.9% 1000 ML IV ONE (09:00)
--- NOTE | 2016-07-25 10:18 | IPN ---
DATE: 07/25/2016 Patient has been examined at the bedside. Chart has been reviewed. Denies any shortness of breath, chest pain, pressure or tightness, nausea or vomiting. Speaking in full sentences. No use of respiratory accessory muscles. This morning, patient was found to be orthostatic, still on intravenous (IV) fluids. Temperature 98.1, pulse 64, respiratory rate 18, blood pressure 97/55, 84/50, 58/40, 95% on room air. Denies any dizziness or lightheadedness. Generally, awake, alert, oriented times three, answering questions appropriately. No use respiratory accessory muscles. Speaks in full sentences. Heart: S1, S2. Sinus rhythm. Lungs: Diminished. No crackles or rales. Abdomen: Soft, nontender, nondistended. Positive bowel sounds times four quadrants. No rebound or guarding. Extremities: Multiple ulcers noted on bilateral toes. LABORATORY DATA: White count 9.3, hemoglobin 8.8, hematocrit 28.7, platelet count 192. Sodium 145, potassium 4, chloride 115, bicarbonate 23, BUN 29, creatinine 1.66, glucose of 91. MICROBIOLOGY: Klebsiella UTI on IV ceftriaxone. IMAGING STUDY: Chest x-ray 07/24/2016: No acute cardiopulmonary process. Subtle effusion has resolved. ASSESSMENT AND PLAN: This is a 71-year-old, history of congestive heart failure (CHF), chronic hypotension on midodrine, chronic kidney disease stage III, hypothyroidism, coronary artery disease (CAD), stent, chronic back pain, anemia, admitted 07/12/2016 to 07/17/2016 for CHF, fluid overloaded, presented to the emergency room (ER) after being home, falling, difficulty ambulating, was found to have acute on chronic renal failure, hypotension with orthostasis due to overdiuresis. IMPRESSION: 1. Weakness, fall and tremors secondary to orthostatic hypotension status post IV fluids. Will continue IV fluids for now. MRI of the brain: Patient has no focal deficits. Neurology has been consulted regarding patient's tremors. Awaiting physical therapy (PT) clearance once orthostasis has resolved. 2. Acute kidney injury per prerenal due to Lasix. Baseline creatinine is 1.7. Chest x-ray is unremarkable. Again, gentle fluid hydration. Current creatinine has improved to 1.66. 3. Hyperalbuminemia. Nutritional consult. 4. Diastolic heart failure. No exacerbation. Ejection fraction (EF) of 60%. Holding diuretics due to orthostatic hypotension. 5. Hypothyroidism. On levothyroxine. Normal thyroid-stimulating hormone (TSH) . 6. Chronic hypotension. Increase dose of midodrine. 7. Bilateral lower extremity wounds on the toes. Wound care and repositioning. 8. Coronary artery disease (CAD), stent. On aspirin, Plavix, atorvastatin. 9. Obesity and gastric bypass previously. 10. Chronic back pain. On Percocet as needed. 11. Macrocytic anemia, stable. 12. Left-sided breast nodule, some thickening bilaterally. Outpatient biopsy to be scheduled by primary care physician. MTDD
[2016-07-25] MEDS: NS 1,000 ML IV SCH (11:08)
[2016-07-25] MEDS: SIMVASTATIN 10 MG TAB PO SCH (20:30)
--- NOTE | 2016-07-25 20:35 | REP ---
MRI CERVICAL SPINE WITHOUT CONTRAST: HISTORY: Gait difficulty. COMPARISON: None. The craniovertebral junction is within normal limits. No abnormal signal is seen in the imaged portion of the spinal cord. There is advanced degenerative disc space narrowing at the C4-5 and C5-6 levels. Vertebral body height and alignment is within normal limits. The marrow signal is within normal limits. At the C2-3 level, there is no disc herniation, foraminal narrowing or central canal stenosis. At the C3-4 level, there is a large broad-based annular bulge with a posterior spondylotic bar. Hypertrophic degenerative facet and uncovertebral joint changes are present bilaterally. The spondylotic and discogenic changes flatten and straighten the anterior surface of the spinal cord, obliterating the ventral subarachnoid space causing moderate central canal stenosis. There is also moderate bilateral foraminal narrowing, left greater than right. No acute disc extrusion is present. At the C4-5 level, there is a large broad-based annular bulge with a posterior spondylotic bar. Hypertrophic degenerative facet and uncovertebral joint changes are present bilaterally. These discogenic changes and spondylotic changes are causing a flattening and straightening of the anterior surface of the spinal cord with moderate central canal stenosis and moderate bilateral foraminal narrowing, but left much greater than right. There is no evidence of an acute disc extrusion. At the C5-6 level, there is a large posterior spondylotic bar with a broad-based annular bulge. Hypertrophic degenerative facet and uncovertebral joint changes are present at this level bilaterally. The anterior surface of the spinal cord is flattened and straightened by the disc osteophyte complex and there is moderate to severe bilateral foraminal narrowing, right greater than left. There is no evidence of an acute disc extrusion. At the C6-7 level, there is an asymmetric broad-based annular bulge seen in conjunction with a posterior spondylotic bar. Hypertrophic degenerative facet and uncovertebral joint changes are present bilaterally. The anterior surface of the spinal cord is nearly flattened and straightened with restriction of the ventral subarachnoid space. There is moderate central canal stenosis and there is severe left and moderate right foraminal narrowing. There is no evidence of an acute disc extrusion. At the C7-T1 level, there is a moderate broad-based annular bulge with degenerative facet and uncovertebral joint changes bilaterally. The broad-based annular bulge is seen with mild posterior spondylotic bar, which causes a flattening and straightening of the ventral subarachnoid space. There is mild central canal stenosis, but there is no significant foraminal narrowing or evidence of an acute disc extrusion. IMPRESSION: Multilevel degenerative changes with disc osteophyte complex and multiple possible covered disc as described above giving rise to multilevel foraminal narrowing and central canal stenosis. Signed by Yohan Sims DO 07/27/2016 03:44 P
--- NOTE | 2016-07-25 21:10 | REP ---
MRI LUMBAR SPINE: HISTORY: Gait abnormality. COMPARISON: None. There is disc space narrowing, which is moderate at every level particularly posteriorly, but more advanced at the L3-4 level where there is L3 and L4 irregularity. There are Schmorl's nodes at every level. There is subtle T1 and T2 prolongation seen involving the endplates at L3-4. There is a grade 1 anterior wedge compression deformity of T12. No abnormal signal is seen in the imaged portion of the spinal cord. There is a grade 1 L5 upon S1 spondylolisthesis. At the L1-2 level, there is a broad-based annular bulge without evidence of a disc herniation or foraminal narrowing, or central canal stenosis. At the L2-3 level, there is a large broad-based annular bulge which flattens and straightens the anterior thecal sac. Hypertrophic degenerative facet joint changes are present bilaterally with thickening of the ligamentum flava. These factors are causing mild right and moderate left foraminal narrowing. The degenerative changes in conjunction are causing moderate central canal stenosis. There is no evidence of an acute disc extrusion. At the L3-4 level, there is a large broad-based annular bulge with posterior spondylosis. Hypertrophic degenerative facet joint changes are present bilaterally with thickening of the ligamentum flava. These factors in concert are causing severe central canal stenosis and severe bilateral foraminal narrowing. There is no evidence of an acute disc extrusion. At the L4-5 level, there is a large broad-based annular bulge seen in conjunction with hypertrophic degenerative facet joint changes and thickening of the ligamentum flava. These factors in concert are causing severe central canal stenosis and moderate bilateral foraminal narrowing. There is no evidence of an acute disc extrusion. At the L5-S1 level, there is a broad-based annular bulge. Degenerative facet joint changes are present bilaterally. There is no evidence of significant central canal stenosis, however, there is mild bilateral foraminal narrowing, right greater than left. IMPRESSION: Multilevel discogenic changes with foraminal narrowing and central canal stenosis as described above. Signed by Yohan Sims DO 07/27/2016 03:44 P
[2016-07-26] VITALS (8 sets, daily range): BP systolic 50–118; BP diastolic 36–60
[2016-07-26] MEDS: LEVOTHYROXINE 0.112 MG TAB (112 MCG) PO SCH (05:27)
[2016-07-26] MEDS: NS 1,000 ML IV SCH (05:27)
[2016-07-26 05:45] LABS: BASO % 0.4 % (0.0-1.0); EOS # 0.1 K/mm3 (0.0-0.50); EOS % 0.8 % (0.0-3.0); LARGE UNSTAINED CELL # 0.1 K/mm3 (0.0-0.4); LARGE UNSTAINED CELL % 1.3 % (0.0-4.0); LYMPH # 1.3 K/mm3 (1.5-4.5); LYMPH % 16.5 % (24.0-44.0); MEAN CORPUSCULAR HEMOGLOBIN 32.2 pg (27.0-33.0); MEAN CORPUSCULAR HGB CONC 30.4 g/dl (32.0-36.5); MEAN CORPUSCULAR VOLUME 105.9 fl (80.0-96.0); MONO # 0.4 K/mm3 (0.0-0.8); MONO % 4.4 % (0.0-5.0); NEUTROPHILS # 6.1 K/mm3 (1.8-7.7); NEUTROPHILS % 76.4 % (36.0-66.0); PLATELET COUNT, AUTOMATED 177 k/mm3 (150-450); RED CELL DISTRIBUTION WIDTH 15.3 % (11.5-14.5)
[2016-07-26 06:05] LABS: ALBUMIN 1.2 GM/DL (3.2-5.2); CALCIUM LEVEL 6.8 MG/DL (8.8-10.2); CREATININE FOR GFR 1.58 MG/DL (0.55-1.02); GLOMERULAR FILTRATION RATE 34.5 (>45); PHOSPHORUS LEVEL 2.8 MG/DL (2.5-4.9); POTASSIUM SERUM 3.9 MEQ/L (3.5-5.1)
--- NOTE | 2016-07-26 07:07 | CR ---
DATE OF CONSULTATION: 07/24/2016 REFERRING PHYSICIAN: Dr. Trinity Naylor REASON FOR CONSULTATION: Gait difficulty and tremor. HISTORY OF PRESENT ILLNESS: Leatha Gomez is a 71-year-old woman with history of renal failure and congestive heart failure who feels weak whenever she tries to walk. She has been using a walker. She states that she has history of chronic back pain and was seen by a spine surgeon in past who had recommended back surgery many years ago but she did not follow through with that. She states that she is feeling better now. She states that previously whenever she tried standing up or walk for 1 or 2 minutes she would start feeling shaky all over her body. There would be no loss of consciousness. She has history of left foot drop since her left knee replacement. She complains of mild neck stiffness. She denies any headaches. She has history of chronic low back pain. She has history of peripheral arterial disease and coronary artery disease. She had diabetes before her gastric bypass in 2006. She lost 130 pounds and has been able to maintain her weight. She states that her diabetes was bad at that time. PAST MEDICAL HISTORY: 1. History of diabetes, which resolved after gastric bypass and she lost 130 pounds in 2006. 2. Peripheral arterial disease for which she had stents in her femoral arteries. 3. Coronary artery disease and she had a coronary angioplasty with stenting. 4. Congestive heart failure. 5. Hypotension. 6. Chronic kidney disease. 7. Chronic back pain. 8. Left knee replacement. 9. Rotator cuff surgery. 10. Carpal tunnel surgery. 11. Wrist surgery. 12. Appendectomy. ALLERGIES: LATEX. CURRENT MEDICATIONS: - aspirin 81 mg by mouth daily - Plavix 75 mg by mouth daily - vitamin B12 - vitamin D2 2000 units by mouth daily - Lasix 40 mg by mouth twice a day - gabapentin 300 mg by mouth twice a day - levothyroxine 112 mcg by mouth daily - midodrine 2.5 mg by mouth three times a day - simvastatin 10 mg by mouth nightly - Protonix 40 mg by mouth daily - sucralfate 1 gram by mouth daily - nitroglycerin 0.4 mg by mouth daily as needed - Percocet 5/325 mg daily as needed SOCIAL HISTORY: She is a former smoker. She denies alcohol or illicit drugs. FAMILY HISTORY: Mother had diabetes and heart disease. Father had prostate cancer. Sister has diabetes. REVIEW OF SYSTEMS: All systems were reviewed and were found to be noncontributory except as mentioned in history of present illness. PHYSICAL EXAMINATION: Temperature 98.3, pulse 73, respiratory 18, blood pressure 90/54, 98% saturations on room air. Heart: Regular rate and rhythm. Lungs: Clear to auscultation. Abdomen: Soft, nontender, nondistended. No pedal edema. She has decreased peripheral pulses. Ear, nose, throat examination is within normal limits. No gross musculoskeletal abnormalities. Her pupils are 4 mm bilaterally reactive to light. She is awake, alert, oriented to place, person and time. Normal speech, comprehension and repetition. Extraocular muscles are intact. No facial weakness. Tongue and uvula are midline. 5/5 strength in all four extremities. Deep tendon reflexes are 1+ in arms and absent in legs. She has decreased cold, pinprick, vibration sensation in her feet. DIAGNOSTIC STUDIES: Her MRI scan of brain reportedly showed old left basal ganglia lacunar stroke and small-vessel ischemic disease of brain. Hemoglobin was 8.8 with WBC 9.3, platelet count 192. Creatinine was 2.23 but decreased to 1.6. ASSESSMENT: 1. Multifactorial gait difficulty. 2. Suspected cervical and lumbosacral spinal stenosis. 3. Peripheral neuropathy likely induced by diabetes and her diabetes improved after she had gastric bypass and lost 130 pounds in 2006. 4. Peripheral arterial disease and coronary artery disease which can contribute to vascular claudication in her legs. PLAN: 1. MRI cervical and lumbosacral spine. 2. Physical and occupational therapy. 3. Spine surgery consultation after MRI scan of her spine for suspected spinal stenosis. 4. I do not see any clear signs of parkinsonism. Her shakiness while standing and walking is likely due to weakness of her legs while standing up and due to suspected spinal stenosis and peripheral neuropathy. 5. Check vitamin B12 and serum copper to rule out reversible causes of peripheral neuropathy.
[2016-07-26] MEDS ORDERED: SODIUM CHLORIDE 0.45% 1000 ML IV SCH (08:00)
[2016-07-26] MEDS: cefTRIAXone SOD 1 GM in D5W MINI-BAG PLUS 50 ML IV SCH (08:32)
[2016-07-26] MEDS: MULTIVITAMINS/MINERALS THERAP 1 TAB PO SCH ×2 (08:33→22:38)
[2016-07-26] MEDS: NS 0.45% 1,000 ML IV SCH ×2 (08:33→20:27)
[2016-07-26] MEDS: ASPIRIN 81 MG ENTERIC TAB PO SCH (08:33)
[2016-07-26] MEDS: FERROUS SULFATE 325MG TAB PO SCH ×2 (08:33→22:37)
[2016-07-26] MEDS: CLOPIDOGREL 75 MG TAB PO SCH (08:33)
[2016-07-26] MEDS: PANTOPRAZOLE 40MG TAB (PROTONIX) PO SCH (08:33)
[2016-07-26] MEDS: GABAPENTIN 100 MG CAP PO SCH ×2 (08:33→22:37)
[2016-07-26] MEDS: MIDODRINE 5 MG TAB PO SCH ×3 (08:33→16:58)
[2016-07-26] MEDS: FOLIC ACID 1 MG TAB PO SCH (08:34)
--- NOTE | 2016-07-26 12:48 | IPN ---
DATE: 07/26/2016 The patient is seen and examined at the bedside. The chart has been reviewed. She complains of slight dizziness when she stands up quickly, otherwise no complaints of shortness of breath, chest pain, pressure or tightness this morning. Temperature 98.7, pulse 82, respiratory rate 18, blood pressure 50/32 standing. Generally awake, alert, oriented. Answering questions appropriately. Lungs: Diminished breath sounds. No crackles or rales. Heart: S1, S2. Sinus rhythm Abdomen: Soft, nontender, nondistended. Positive bowel sounds times four quadrants. Extremities: Chronic edema. Multiple lacerations. Bilateral toes. 5/5 strength times four extremities. No pain on cervical or lower thoracic vertebral palpation. White count 18, hemoglobin 8.4, hematocrit 27, platelet count 177. Sodium 146, potassium 3. 9, chloride 117, bicarbonate 23, BUN 23, creatinine 1.58, glucose 82. Urine culture 415 Klebsiella resistant to ampicillin. Cervical spine MRI: Spinal stenosis. Lumbar spine MRI: Spinal stenosis. ASSESSMENT/PLAN: This is a 71-year-old female with history of congestive heart failure, diastolic dysfunction, chronic hypotension on midodrine, chronic kidney disease stage III, hypothyroidism, coronary artery disease, chronic back pain, anemia admitted on 07/12/2016 to 07/18/2015 for congestive heart failure, fluid overloaded presented to the emergency room after being home falling with difficulty ambulating and was found to have orthostatic hypotension with acute on chronic renal failure, given intravenous fluids. During this hospital stay, the patient also complained of tremors and instability ambulating. MRI of the cervical and lumbar spine showed spinal stenosis, which are chronic. No complaints of pain. IMPRESSION: Weakness, fall and tremors secondary to orthostatic hypotension, status post IV fluids. At this time, the patient continues to be orthostatic. Will continue with fluids due to increasing lower extremity edema. Will consult nephrology to manage her fluid status. MRI of the brain was unremarkable. MRI of the cervical and lumbar spine showed spinal stenosis, which is chronic per neurology. Dr. Alberto recommend neurosurgical consult. Dr. Mireles has been consulted. Acute kidney injury: Prerenal due to Lasix. Currently at baseline creatinine. Consult nephrology for fluid management. Diastolic heart failure: No acute exacerbation. Ejection fraction of 60%. Holding diuretics due to severe orthostasis. Orthostatic hypertension: Currently on midodrine. IV fluids. Hypothyroidism: On levothyroxine. Normal TSH. Bilateral lower extremity on the toes. Wound care and repositioning. History of coronary artery disease (CAD), stent. On aspirin, Plavix, atorvastatin. Obesity and gastric bypass history, stable. Macrocytic anemia, stable. Left-sided breast nodule, some thickening bilaterally. Outpatient biopsy to be arranged by primary care physician.
[2016-07-26] MEDS ORDERED: ONDANSETRON 4 MG TAB (S0181) PO PRN (13:30)
--- NOTE | 2016-07-26 18:11 | CR.PDOC ---
General Date of Consultation: Jul 26, 2016 Reason for Consultation/CC The patient is a 71-year-old female admitted with a reason for visit of Acute Renal Failure. History of Present Illness HISTORY OF PRESENT ILLNESS: Ms Gomez is a pleasant 71 yo female which a past medical history significant for CHF, chronic back pain, diabetes who states she is hospitalized because she is "full of fluid" and she "had shakes." She is a poor historian and obtaining a history was quite difficult. She states her whole back hurts. She is unsure which part of her back causes her the most pain. The pain in her low back does not radiate down her legs. She is unable to describe the quality of the pain. The pain worsens when she walks, stands, and sits. Sitting and resting can help to relieve the pain. She ambulates with a walker at all times. She can only walk for about 2 minutes before the pain starts to worsen. She states she uses a walker due to her "floppy foot." She states this started after her second knee surgery 3 weeks ago. The pain in her neck travels down her arms to her fingers. She states her hands are typically numb. 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 She reports nausea, vomiting, balance issues, unsteady gait, generalized weakness, and headache. She denies dizziness. ALLERGIES: Please see below. HOME MEDICATIONS: Please see below. PAST MEDICAL HISTORY: 1. CHF 2. Diabetes mellitus- per patient 3. Chronic kidney disease 4. Chronic hypotension 5. CAD 6. Anemia 7. Hypothyroid SOCIAL HISTORY: Tobacco use:former smoker. 2 ppd x 30-40 years. ETOH: denies Illicit drug use: denies IV drug use: denies PHYSICAL EXAMINATION: VITAL SIGNS: Please see below. GENERAL APPEARANCE: She is sitting up on the edge of the bed vomiting and dry heaving into emesis bag. Appears frail. HEAD: Scalp is intact without lesions or deformities. No signs of acute trauma. EXTREMITIES: Significant peripheral pitting edema with stasis changes in the skin. Radial pulses 1+ bilaterally. Dorsalis pedis pulse is not palpable bilaterally. Bandages are covering the ulcers on her feet. NEUROLOGICAL: EOM are coarse. Pupils are small but reactive to light. Muscle strength is 3/5 in upper extremities and 3-4/5 in the lower extremities- with the exception of great toe flexion 1/5. Diffuse muscle atrophy present. Sensation is intact to sharp and light touch in upper extremities. Sensation is decreased to sharp and light touch peripherally in the lower extremities. DTRs are absent in Achilles tendon, diminished patellar reflex, and diminished in the upper extremities. Positive Tinel's across the wrists bilaterally. Negative Tinel's in the elbows bilaterally. Significant dysrhythmia and dysmetria in the hands bilaterally; worse on the left. Tenderness upon palpation in the suboccipital region bilaterally, in the L2-5 regions bilaterally, and in the SI joints bilaterally. Positive straight leg bilaterally. LABORATORY DATA: Please see below. IMPRESSION: Per Dr Horan 1. Cervical spondylosis with myelopathy 2. Lumbar spondylosis with neurogenic claudication/ weakness 3. Lumbosacral spondylolisthesis 4. Peripheral neuropathy 5. Early dementia 6. Mild diffuse UPHOLSTERY TRIMMER dysfunction PLAN/RECOMMENDATIONS: Per Dr Horan: Patient may benefit from multilevel cervical fusion, for her cord compression from C3 through C5 or C6 and multilevel lumbar fusion from L3 through S1 for severe canal stenosis at subluxation at S1. She would require EMG/NCT for her peripheral neuropathy. Her gait failure is multifactorial. She is a very high risk candidate for surgery and will require, at least medical, neurology (to see if gait failure is only from peripheral neuropathy) cardiac clearance. She can follow in the office if she requests surgery. Rosalinda Pop PA-C. Thank you for the consultation. Vital Signs/I&O Vital Signs Date Time Temp Pulse Resp B/P Pulse Ox O2 Delivery O2 Flow Rate FiO2 07/26/16 16:00 70 110/56 93 86/56 07/26/16 08:00 98.7 18 96 Room Air I&O- Last 24 Hours up to 6 AM 07/26/16 06:00 Intake Total 3090 ml Output Total 1275 ml Balance 1815 ml Laboratory Data 24H Labs Laboratory Tests 2 07/26/16 05:26: Albumin 1.2L, Blood Urea Nitrogen 23H, Creatinine 1.58H, Sodium Level 146H, Potassium Level 3.9, Chloride Level 117H, Carbon Dioxide Level 23, Anion Gap 6L , White Blood Count 8.0, Red Blood Count 2.60L, Hemoglobin 8.4L, Hematocrit 27.5L, Mean Corpuscular Volume 105.9H, Mean Corpuscular Hemoglobin 32.2, Mean Corpuscular Hemoglobin Concent 30.4L, Red Cell Distribution Width 15.3H, Platelet Count 177, Neutrophils (%) (Auto) 76.4H, Lymphocytes (%) (Auto) 16.5L, Monocytes (%) (Auto) 4.4, Eosinophils (%) (Auto) 0.8, Basophils (%) (Auto) 0.4, Neutrophils # (Auto) 6.1, Lymphocytes # (Auto) 1.3L, Monocytes # (Auto) 0.4, Eosinophils # (Auto) 0.1, Basophils # (Auto) 0.0, Calcium Level 6.8L, Glomerular Filtration Rate 34.5L, Large Unclassified Cells # 0.1, Large Unclassified Cells % 1.3, Phosphorus Level 2.8, Vitamin B12 Level 852 CBC/BMP Laboratory Tests 07/26/16 05:26 Anion Gap 6 L, Red Blood Count 2.60 L, Mean Corpuscular Volume 105.9 H, Mean Corpuscular Hemoglobin 32.2, Mean Corpuscular Hemoglobin Concent 30.4 L, Red Cell Distribution Width 15.3 H, Neutrophils (%) (Auto) 76.4 H, Lymphocytes (%) ( Auto) 16.5 L, Monocytes (%) (Auto) 4.4, Eosinophils (%) (Auto) 0.8, Basophils (% ) (Auto) 0.4, Neutrophils # (Auto) 6.1, Lymphocytes # (Auto) 1.3 L, Monocytes # (Auto) 0.4, Eosinophils # (Auto) 0.1, Basophils # (Auto) 0.0 Microbiology Microbiology 07/21/16 Blood Culture - Final, Complete NO GROWTH AFTER 5 DAYS 07/21/16 Blood Culture - Final, Complete NO GROWTH AFTER 5 DAYS 07/22/16 Clostridium difficile (PCR) - Final, Complete 07/22/16 Stool Occult Blood (MAYCO) - Final, Complete 07/26/16 Urine Culture, Received Pending 07/21/16 Urine Culture - Final, Complete Klebsiella Oxytoca Allergies Coded Allergies: Latex (Verified Allergy, Intermediate, BLISTERS, 07/10/12) Home Medications Scheduled (Calcium 500 500-250-200 mg-mg-Unit) 1 Tab Tab 1 TAB PO BID (Reported) Aspirin (Aspirin EC) 81 Mg Tabec 81 MG PO DAILY (Reported) Bacitracin (Bacitracin Zinc) 1 Dose/28.35 Gm Oint 1 DOSE EXT BID (Reported) PATIENT USES ON TOES Clopidogrel Bisulfate (Plavix) 75 Mg Tab 75 MG PO DAILY (Reported) Cyanocobalamin (Cyanocobalamin) 1,000 Mcg/1 Ml Inj 1,000 MCG IM MTHLY (Reported ) PATIENTS STATES LAST TAKEN AT END OF MAY Epoetin Reinaldo (Procrit) 10,000 Unit/Ml Inj 10,000 UNIT INJ MTHLY (Reported) PATIENT STATES LAST TAKEN AT END OF MAY Ergocalciferol (Vitamin D2) 2,000 Unit Tab 2,000 UNIT PO DAILY (Reported) Ferrous Sulfate (Ferrous Sulfate) 325 Mg Tab 325 MG PO BID (Reported) Folic Acid (Folic Acid) 1 Mg Tab 1 MG PO DAILY (Reported) ALL OUT Furosemide (Furosemide) 40 Mg Tab 40 MG PO BID (Reported) Gabapentin (Gabapentin) 300 Mg Cap 300 MG PO BID (Reported) Levothyroxine Sodium (Synthroid) 112 Mcg Tab 112 MCG PO DAILY (Reported) Midodrine (Midodrine HCl) 2.5 Mg Tab 2.5 MG PO TID (Reported) Multivitamins *[facility]OCK[facility]* (Thera M Plus *[facility]OCK[facility]*) 1 Tab Tab 1 TAB PO BID (Reported) Pantoprazole Sodium (Pantoprazole Sodium) 40 Mg Tab 40 MG PO DAILY (Reported) Paricalcitol (Zemplar) 1 Mcg Cap 1 MCG PO DAILY (Reported) Potassium Chloride (Klor-Con M10) 10 Meq Tabcr 40 MEQ PO DAILY (Reported) Simvastatin (Zocor) 10 Mg Tab 10 MG PO QHS (Reported) Sucralfate (Sucralfate) 1 Gm Tab 1 GM PO ACHS (Reported) Scheduled PRN Nitroglycerin (Nitrostat) 0.4 Mg Subl 0.4 MG SL NITRO PRN PRN ANGINA (Reported) Oxycodone/Acetaminophen (Oxycodone/Acetaminophen 5-325 mg) 1 Tab Tab 1 TAB PO TID PRN PRN PAIN (Reported) Senna (Senna) 8.6 Mg Cap 2 CAP PO DAILY PRN PRN CONSTIPATION (Reported) Attending Note Attending Note Case discussed with Dr. Law via text. patient claims she is not looking for surgery. I will be happy to see her in my office, once she is discharged, please call me if there is any change in her neurological examination. Thank You MD TD Solis ANGELA R. PA-C Jul 26, 2016 18:11 BOUCHRA HORAN MD Jul 27, 2016 17:26
--- NOTE | 2016-07-26 20:01 | CR ---
DATE OF CONSULTATION: 07/26/2016 REFERRING PHYSICIAN: Trinity Naylor MD REASON FOR CONSULTATION: Acute kidney injury and congestive heart failure. HISTORY OF PRESENT ILLNESS: Mrs. Gomez is a 71-year-old female with multiple chronic medical problems. She was admitted to [facility] on July 21 and since then has been managed by hospitalist service. Her admission diagnosis was acute renal failure. I was consulted today due to her congestive heart failure status and kidney function. The patient is a poor historian. She states that she had generalized edema as her diuretics were stopped and she was short of breath at this time of admission. She is currently being treated with IV antibiotics. A nephrology consultation was requested due to renal insufficiency and ongoing problems with her volume status. PAST MEDICAL HISTORY: Significant for 1. Coronary artery disease, status post angioplasty with stent placement. 2. History of hypothyroidism. 3. History of congestive heart failure. 4. History of chronic kidney disease. 5. History of chronic hypotension. 6. Anemia. 7. Gout. 8. Peripheral neuropathy. PAST SURGICAL HISTORY: Significant for 1. Left knee replacement. 2. Ankle reconstruction. 3. Rotator cuff injury. 4. Carpal tunnel release. 5. Appendectomy. 6. Percutaneous transluminal coronary angioplasty (PTCA) with coronary angioplasty and stent. 7. Right salpingo-oophorectomy. 8. Exploratory laparotomy. MEDICATIONS: Her home medications included - aspirin 81 mg daily - Plavix 75 mg daily - vitamin B12 1000 mcg daily - Epogen 10,000 units once a month - vitamin D 2000 units daily - ferrous sulfate 325 mg twice a day - folic acid 1 mg daily - furosemide 40 mg twice a day - gabapentin 300 mg twice a day - levothyroxine 112 mcg daily - midodrine 2.5 mg three times a day - multivitamin 1 tablet daily - Protonix 40 mg daily - Zemplar 1 mcg daily - potassium chloride 10 mEq daily - Zocor 10 mg daily - Carafate 1 gram four times a day ALLERGIES: LATEX. PERSONAL AND SOCIAL HISTORY: The patient is a former smoker who quit smoking about 20 years ago. There is no history of alcohol or drug use. FAMILY HISTORY: Negative for end-stage renal disease. Her father had prostate problems. Mother had diabetes and coronary artery disease. One sister has hypertension and type 2 diabetes. REVIEW OF SYSTEMS: The patient is a poor historian. She denies any fever or chills. Head and neck is unremarkable. She denies any sore throat or sinus problems. Cardiovascular system is significant for chronic leg edema and shortness of breath. Respiratory system negative for cough or hemoptysis. GI system is negative for nausea, vomiting or diarrhea. system is negative for dysuria or hematuria. Endocrine system is negative for diabetes or adrenal problems. She does have chronic hypothyroidism. Psychosocial system negative for depression, anxiety. Musculoskeletal system is significant for chronic back pain and arthritis. Neurological system is negative for seizures or stroke. Hematological system is significant for chronic anemia. Other systems are negative. PHYSICAL EXAMINATION: Elderly female sitting in the chair at the time of my visit. Temperature 98.7 degrees Fahrenheit, heart rate 82 per minute and respiratory rate 18 per minute. Blood pressure 90/46 mmHg and oxygen saturation 96% on room air. Head: Is atraumatic. Ears, nose and throat are unremarkable. Pupils equal and reactive to light and sclera is anicteric. She is edentulous and has no oral thrush or ulcers. Neck is supple and JVD is only mildly elevated. There is no thyroid enlargement and trachea is midline. Heart: Sounds are regular and lungs with slightly diminished breath sounds at bases, but no wheezing or rales. Abdomen: Soft and nontender. Extremities: Have only trace of leg edema. There is no cyanosis or clubbing. Skin is without any rash or ulcers. Neurologically she seems to be at her baseline mentation. LABORATORY DATA: Today's labs show WBC count 8.0, hemoglobin 8.4 and hematocrit 27.5. Platelets 177. Sodium 146 and potassium 3.9. Chloride 117, CO2 23, BUN 23 and creatinine 1.58. Glucose 82 and calcium 6.8. Albumin is only 1.2. Urinalysis showed only 1 WBC and 1 RBC. PROBLEMS: 1. Acute kidney injury superimposed on chronic kidney disease. The patient has known history of chronic kidney disease with serum creatinine in the range of 1.4-1.7 mg/dl for at least last few years. I feel that she did have worsening kidney function with creatinine up to 1.94 a couple of days ago. However, her acute kidney injury seems to have resolved. This is most likely her baseline kidney function. 2. Congestive heart failure. Clinically the patient seems to be reasonably well-compensated and she is oxygenating well on room air. He does have only trace of peripheral edema and lungs sound clear. I suggest to get another chest x-ray if suspicion, however, her chest x-ray on July 24 showed no acute cardiopulmonary findings. She did have a small left pleural effusion which should not cause any significant problems. I would suggest to continue to hold off on her diuretics as her blood pressure is low. 3. Hypotension. This is chronic issue. She is already on midodrine 5 mg three times a day which should be continued. I feel that severely low serum albumin is the main issue here and she should be treated with high protein and possibly with albumin infusion. I suggest to give her 25% albumin 50 mL twice a day and also push her to drink high-protein nutritional supplements and shakes. 4. Anemia. She does have known history of chronic anemia. She was also on Procrit as an outpatient. We will check her iron studies and also consider starting Aranesp 100 mcg. This will be given once a week. 5. Protein calorie malnutrition. This is going on for awhile due to poor nutrition. The patient needs to be encouraged for oral intake of high-protein diet. At this point, does not seem to have any acute or chronic infections which could be accounted for her malnutrition. 6. Hypernatremia. This is very mild and most likely related to IV fluid. Normal saline given. She is currently receiving half-normal saline, which is appropriate. Her electrolytes should be checked again tomorrow morning. I thank you for involving me in the care of Mrs. Gomez. I will follow her along with you.
[2016-07-26] MEDS: SIMVASTATIN 10 MG TAB PO SCH (22:37)
[2016-07-27] VITALS: BP_SYST 110; BP_SYST 84; BP_SYST 96; BP_DIAS 56; BP_DIAS 58; BP_DIAS 62
[2016-07-27 04:00] VITALS: BP_SYST 109; BP_SYST 81; BP_SYST 95; BP_DIAS 48; BP_DIAS 53; BP_DIAS 55
[2016-07-27] MEDS: LEVOTHYROXINE 0.112 MG TAB (112 MCG) PO SCH (06:00)
[2016-07-27 07:02] LABS: BASO % 0.3 % (0.0-1.0); EOS # 0.1 K/mm3 (0.0-0.50); EOS % 1.4 % (0.0-3.0); LARGE UNSTAINED CELL # 0.1 K/mm3 (0.0-0.4); LARGE UNSTAINED CELL % 1.1 % (0.0-4.0); LYMPH # 1.5 K/mm3 (1.5-4.5); LYMPH % 20.8 % (24.0-44.0); MEAN CORPUSCULAR HEMOGLOBIN 31.9 pg (27.0-33.0); MEAN CORPUSCULAR HGB CONC 30.5 g/dl (32.0-36.5); MEAN CORPUSCULAR VOLUME 104.7 fl (80.0-96.0); MONO # 0.3 K/mm3 (0.0-0.8); MONO % 4.2 % (0.0-5.0); NEUTROPHILS % 72.1 % (36.0-66.0); PLATELET COUNT, AUTOMATED 183 k/mm3 (150-450); RED CELL DISTRIBUTION WIDTH 15.5 % (11.5-14.5)
[2016-07-27 07:22] LABS: ALBUMIN 1.2 GM/DL (3.2-5.2); CALCIUM LEVEL 6.9 MG/DL (8.8-10.2); CREATININE FOR GFR 1.21 MG/DL (0.55-1.02); PERCENT SATURATION 45.2 % (13.2-37.4); PHOSPHORUS LEVEL 2.3 MG/DL (2.5-4.9); POTASSIUM SERUM 4.1 MEQ/L (3.5-5.1)
[2016-07-27 08:00] VITALS: BP_SYST 103; BP_SYST 107; BP_DIAS 56; BP_DIAS 57; BP_DIAS 64
[2016-07-27] MEDS: GABAPENTIN 100 MG CAP PO SCH ×2 (08:49→21:31)
[2016-07-27] MEDS: PANTOPRAZOLE 40MG TAB (PROTONIX) PO SCH (08:49)
[2016-07-27] MEDS: ASPIRIN 81 MG ENTERIC TAB PO SCH (08:49)
[2016-07-27] MEDS: MIDODRINE 5 MG TAB PO SCH ×3 (08:49→16:30)
[2016-07-27] MEDS: MULTIVITAMINS/MINERALS THERAP 1 TAB PO SCH ×2 (08:49→21:31)
[2016-07-27] MEDS: FERROUS SULFATE 325MG TAB PO SCH ×2 (08:49→21:31)
[2016-07-27] MEDS: CLOPIDOGREL 75 MG TAB PO SCH (08:49)
[2016-07-27] MEDS: FOLIC ACID 1 MG TAB PO SCH (08:49)
[2016-07-27] MEDS: ACETAMINOPHEN TAB 650MG DOSE (2X325MG) PO PRN (08:50)
[2016-07-27 12:00] VITALS: BP_SYST 111; BP_SYST 112; BP_DIAS 55; BP_DIAS 58; BP_DIAS 59
--- NOTE | 2016-07-27 12:36 | IPN ---
DATE: 07/27/2016 Mrs. Gomez is seen this morning on her bedside. She is feeling better today and denies any dyspnea or chest pain. She is laying in the bed comfortably. There is no nausea or vomiting and she did eat her breakfast well this morning. On physical examination temperature 99 degrees Fahrenheit, heart rate 75 per minute supine, 85 per minute sitting and 92 per minute, standing. Her blood pressure is 107/53 mmHg sitting, 103/57 mmHg supine and 103/64 mmHg standing. Head is atraumatic. Neck veins are minimally distended. She is edentulous and has no thrush or ulcers. Pupils are equal and reactive to light and sclera is anicteric. Heart sounds are regular and lungs sound clear to auscultation. Abdomen is soft and nontender. Extremities have no cyanosis or clubbing. She has minimal leg edema. Intake and output records from yesterday showed total intake 2640 and output 1075. She weighed 60.6 kg today. Today's labs show WBC count 7.0, hemoglobin 8.2 and hematocrit 26.8. Her iron level is 57, saturation 45.2. Sodium is 143 and potassium 4.1. BUN 17 and creatinine 1.21. Calcium level is 6.9 and phosphorus 2.3. Serum albumin is only 1.2. PROBLEMS: 1. Acute kidney injury superimposed on chronic kidney disease. The patient has significant improvement in her kidney function. At this point we will stop her IV fluids due to risk of congestive heart failure. 2. Anemia: The patient does have worsening anemia. However, her iron studies are appropriate. She will be given Aranesp 100 mcg starting tomorrow and once a week. Her stools should be checked for occult blood. 3. Congestive heart failure: At present her volume status is very well compensated and we will keep her off diuretics. Her IV fluid is stopped. 4. Orthostatic hypotension: Blood pressure has also improved. She will remain on midodrine 5 mg three times a day. 5. Severe protein calorie malnutrition: I have discussed with the patient and nursing staff at length. The patient should be given Nepro one can daily and we should push her for high-protein diet. I also recommended twice a day albumin infusion until her protein level improves above 2.5.
[2016-07-27 16:00] VITALS: BP_SYST 106; BP_SYST 113; BP_SYST 99; BP_DIAS 58; BP_DIAS 62
[2016-07-27 20:00] VITALS: BP_SYST 101; BP_SYST 98; BP_SYST 99; BP_DIAS 54; BP_DIAS 56; BP_DIAS 59
[2016-07-27] MEDS: SIMVASTATIN 10 MG TAB PO SCH (21:31)
[2016-07-28] VITALS (8 sets, daily range): BP systolic 73–128; BP diastolic 44–67
[2016-07-28] MEDS: LEVOTHYROXINE 0.112 MG TAB (112 MCG) PO SCH (05:30)
[2016-07-28 06:21] LABS: BASO % 0.2 % (0.0-1.0); EOS # 0.2 K/mm3 (0.0-0.50); EOS % 2.5 % (0.0-3.0); LARGE UNSTAINED CELL # 0.1 K/mm3 (0.0-0.4); LARGE UNSTAINED CELL % 1.2 % (0.0-4.0); LYMPH % 25.4 % (24.0-44.0); MEAN CORPUSCULAR HEMOGLOBIN 31.4 pg (27.0-33.0); MEAN CORPUSCULAR VOLUME 104.6 fl (80.0-96.0); MONO # 0.3 K/mm3 (0.0-0.8); MONO % 4.2 % (0.0-5.0); NEUTROPHILS % 66.4 % (36.0-66.0); PLATELET COUNT, AUTOMATED 193 k/mm3 (150-450); RED CELL DISTRIBUTION WIDTH 15.3 % (11.5-14.5); WHITE BLOOD COUNT 7.5 K/mm3 (4.0-10.0)
[2016-07-28 06:45] LABS: ALBUMIN 1.5 GM/DL (3.2-5.2); CALCIUM LEVEL 6.8 MG/DL (8.8-10.2); CREATININE FOR GFR 1.13 MG/DL (0.55-1.02); GLOMERULAR FILTRATION RATE 50.8 (>45); POTASSIUM SERUM 3.9 MEQ/L (3.5-5.1)
[2016-07-28 08:02] LABS: RETIC HEMOGLOBIN CONTENT CHr 32.5 PG (24-36); RETICULOCYTE ABSOLUTE ADVIA212 147 x10(9)/L (17-77)
[2016-07-28 08:05] LABS: REASON FOR REVIEW COMPREHENSIVE REVIEW
[2016-07-28] MEDS: PANTOPRAZOLE 40MG TAB (PROTONIX) PO SCH (09:39)
[2016-07-28] MEDS: GABAPENTIN 100 MG CAP PO SCH ×2 (09:39→22:34)
[2016-07-28] MEDS: FOLIC ACID 1 MG TAB PO SCH (09:39)
[2016-07-28] MEDS: MULTIVITAMINS/MINERALS THERAP 1 TAB PO SCH ×2 (09:39→22:34)
[2016-07-28] MEDS: ASPIRIN 81 MG ENTERIC TAB PO SCH (09:40)
[2016-07-28] MEDS: FERROUS SULFATE 325MG TAB PO SCH ×2 (09:40→22:34)
[2016-07-28] MEDS: MIDODRINE 5 MG TAB PO SCH ×3 (09:40→16:05)
[2016-07-28] MEDS: CLOPIDOGREL 75 MG TAB PO SCH (09:40)
[2016-07-28] MEDS: DARBEPOETIN 100 MCG/0.5 ML *NON-DIALYSIS* SYRINGE (J0881) SC SCH (11:08)
--- NOTE | 2016-07-28 13:03 | REP ---
PA and lateral chest: Comparisons are 07/24/2016 and 07/21/2016. On the lateral view there are small bilateral pleural effusions in the posterior sulci. There are no focal infiltrates. The lung pizano otherwise clear. Cardiac size is normal. The julien, mediastinum, bony thorax unremarkable except for an old right humeral neck impacted fracture. Impression: Small bilateral pleural effusions identified on the lateral view. Otherwise, essentially negative PA and lateral chest. Signed by Nathan Hsu MD 07/28/2016 12:55 P
--- NOTE | 2016-07-28 13:13 | IPN ---
DATE: 07/28/2016 Patient seen and examined at the bedside. Chart has been reviewed. This morning, the patient has no complaints of chest pain, pressure, tightness, shortness of breath at this time. No nausea or vomiting. No issues per nursing. She remains orthostatic and had received two units of albumin infusion yesterday. Current vital signs: Temperature 98.2, pulse 86, respiratory rate 16, blood pressure 114/57, 99% on room air. Generally, awake, alert, oriented times three. Lungs are diminished. No crackles or rales. Heart: S1, S2, sinus rhythm. Abdomen is soft, nontender, nondistended. Extremities: Positive edema. LABORATORY DATA: White count 7.5, hemoglobin 8.1, hematocrit 26.9, platelet count 193. Sodium 145, potassium 3.9, chloride 118, bicarbonate 20, BUN 14, creatinine 1.13, glucose of 79. ASSESSMENT AND PLAN: This is a 71-year-old female with a history of congestive heart failure, diastolic dysfunction, chronic hypotension, on midodrine, chronic kidney disease stage III, follows with Dr. Schilling, hypothyroidism, coronary artery disease, chronic back pain and anemia, admitted 07/11/2016 to 07/17/2016 for congestive heart failure, fluid overload, presented to the emergency room (ER) after being home falling with difficulty ambulating, was found to have orthostatic hypotension with acute on chronic renal failure, given intravenous (IV) fluids. During the hospital stay, the patient complained of tremors, instability ambulating. MRI of the cervical and lumbar spine showed spinal stenosis, which are chronic. No complaints of pain, weakness of bilateral upper extremities. The patient was given midodrine with increasing dose as well as intravenous fluids with some improvement but persistent hypotension. CURRENT ISSUES: 1. Chronic orthostatic hypotension. Dr. Schilling has been consulted for fluid management in light of history of congestive heart failure. She has received multiple doses of intravenous fluids. Currently on albumin infusion 25%, 50 mL twice a day. Orthostasis is improving. 2. Spinal stenosis. MRI of cervical and lumbar spine shows chronic spinal stenosis. Dr. Mireles has been consulted. The patient sees a specialist in [place] but is opting for [place] specialist to take care of her spinal stenosis. Therefore, outpatient followup with Dr. Mireles at discharge. 3. Acute on chronic renal failure, stage III, prerenal due to Lasix causing orthostasis. Currently improving. Nephrology for fluid management. Avoid nephrotoxins. Renally dose all medications. 4. Diastolic heart failure. No acute exacerbation. Appears to be compensated. Ejection fraction (EF) of 60%. Withheld patient's diuretics due to severe orthostasis that is currently requiring albumin infusions 25% as well as midodrine. 5. Hypothyroidism. Normal TSH. Continue on current dose of levothyroxine. 6. Bilateral lower extremity ulcers. Wound care and repositioning. 7. History of coronary artery disease, stent. On aspirin and Plavix. 8. Obesity and gastric bypass, stable. 9. Macrocytic anemia, stable. 10. Left-sided breast nodule with some thickening bilaterally. Outpatient biopsy to be arranged by her primary care physician. 11. Hypoalbuminemia, protein-calorie malnutrition. Receiving albumin infusions. Physical Integration Practitioner consult with high protein shakes.
[2016-07-28] MEDS: SIMVASTATIN 10 MG TAB PO SCH (22:34)
[2016-07-29] VITALS (7 sets, daily range): BP systolic 86–125; BP diastolic 49–60
[2016-07-29] MEDS: LEVOTHYROXINE 0.112 MG TAB (112 MCG) PO SCH (06:13)
[2016-07-29 06:31] LABS: MEAN CORPUSCULAR HEMOGLOBIN 34.1 pg (27.0-33.0); MEAN CORPUSCULAR HGB CONC 32.2 g/dl (32.0-36.5); MEAN CORPUSCULAR VOLUME 105.7 fl (80.0-96.0); RED CELL DISTRIBUTION WIDTH 15.2 % (11.5-14.5); WHITE BLOOD COUNT 7.4 K/mm3 (4.0-10.0)
[2016-07-29 06:51] LABS: ALBUMIN 1.7 GM/DL (3.2-5.2); CALCIUM LEVEL 6.9 MG/DL (8.8-10.2); CREATININE FOR GFR 1.15 MG/DL (0.55-1.02); GLOMERULAR FILTRATION RATE 49.8 (>45); POTASSIUM SERUM 3.7 MEQ/L (3.5-5.1)
--- NOTE | 2016-07-29 09:43 | IPN ---
DATE: 07/29/2016 Patient seen and examined at the bedside. Chart has been reviewed. This morning, she has no complaints of shortness of breath, chest pain, pressure, tightness. Her dizziness has abated for the past 3 days. She has been receiving albumin infusions twice daily. No other issues per nursing. She remains orthostatic. Blood pressure drops to 86 systolic from 111 with changes in position. Temperature 98.3, pulse 74, respiratory rate 18, blood pressure 111/57 supine, standing 86/54. GENERAL: Awake, alert, oriented times three. Answering questions appropriately. LUNGS: Diminished. Fine crackles at the bases. HEART: S1, S2, sinus rhythm. ABDOMEN: Obese, soft, nontender, nondistended. EXTREMITIES: Chronic edema. LABORATORY DATA: White count 7.4, hemoglobin 8.5, hematocrit 26, platelet count 183. Sodium 146, potassium 3.7, chloride 119, bicarbonate 18, BUN 11, creatinine 1.15, glucose of 98. Microbiology has been reviewed. ASSESSMENT AND PLAN: 71-year-old female with a history of congestive heart failure, diastolic dysfunction, chronic hypotension, on midodrine, chronic kidney disease stage III, hypothyroidism, coronary artery disease, chronic back pain and anemia, admitted 07/11/2016 to 07/17/2016 for congestive heart failure, was discharged home and represented after a fall with difficulty ambulating and was found to be severely orthostatic and dehydrated with acute on chronic renal failure. The patient was given increasing dose of midodrine, IV fluids with no significant improvement. Dr. Schilling was consulted for fluid management. She was found to be anemic with heme positive stool. No active signs of bleeding. Complained of some shortness of breath. Chest x-ray showed small bilateral effusions. Albumin infusions. CURRENT ISSUES: 1. Chronic orthostatic hypotension. Dr. Schilling has been consulted for fluid management. Software Developer Manager has been consulted for protein supplementation. She is currently receiving albumin infusions 50 mL 25% twice a day until the patient's albumin is greater than 2.5 and orthostasis resolves. 2. Spinal stenosis. MRI of cervical and lumbar spine shows chronic spinal stenosis. Outpatient followup with Dr. Mireles. The patient sees a specialist in [place] but is opting for [place] specialist to take care of her issues. 3. Acute on chronic renal failure, prerenal due to Lasix causing orthostasis. Currently improving. Nephrology has been consulted for fluid management. Avoid nephrotoxins. Renally dose all medications. 4. Diastolic heart failure. No current exacerbation. Ejection fraction (EF) of 60%. Diuretics held due to severe orthostasis requiring albumin infusions and acute on chronic renal failure. 5. Hypothyroidism. Normal TSH. Continue on levothyroxine. 6. Anemia. No overt GI bleed. Heme positive stool with stable hemoglobin. Defer to the patient regarding wanting inpatient versus outpatient management, currently orthostatic with pressures in the 80s. May benefit from outpatient referral unless active bleeding. 7. Bilateral lower extremity ulcers. Wound care and repositioning. 8. History of coronary artery disease, stent. On aspirin and Plavix. 9. Obesity and gastric bypass, stable. 10. Macrocytic anemia, stable. 11. Left-sided breast nodule with thickening bilaterally. Outpatient biopsy to be arranged by her primary care physician. 12. Severe protein calorie malnutrition with hypoalbuminemia. Receiving albumin infusions due to severe orthostatic hypotension. Software Developer Manager consult with high protein shakes.
[2016-07-29] MEDS: CLOPIDOGREL 75 MG TAB PO SCH (09:46)
[2016-07-29] MEDS: MIDODRINE 5 MG TAB PO SCH ×3 (09:46→17:37)
[2016-07-29] MEDS: FOLIC ACID 1 MG TAB PO SCH (09:46)
[2016-07-29] MEDS: ASPIRIN 81 MG ENTERIC TAB PO SCH (09:46)
[2016-07-29] MEDS: PANTOPRAZOLE 40MG TAB (PROTONIX) PO SCH (09:46)
[2016-07-29] MEDS: MULTIVITAMINS/MINERALS THERAP 1 TAB PO SCH ×2 (09:46→19:58)
[2016-07-29] MEDS: GABAPENTIN 100 MG CAP PO SCH ×2 (09:46→19:58)
[2016-07-29] MEDS: FERROUS SULFATE 325MG TAB PO SCH ×2 (09:46→19:58)
--- NOTE | 2016-07-29 15:37 | IPNPDOC ---
Date Seen The patient was seen on 07/29/16. Progress Note SUBJECTIVE: Ms Gomez is a pleasant 71 yo female which a past medical history significant for CHF, chronic back pain, diabetes. She states she is feeling much better today. She is eating and drinking well. Denies nausea. No worsening in her back pain or changes in her symptoms. She appears excited about a potential discharge tomorrow. States someone is grocery shopping for her. She understands to use her walker when ambulatory. ALLERGIES: Please see below. HOME MEDICATIONS: Please see below. PAST MEDICAL HISTORY: 1. CHF 2. Diabetes mellitus- per patient 3. Chronic kidney disease 4. Chronic hypotension 5. CAD 6. Anemia 7. Hypothyroid SOCIAL HISTORY: Tobacco use:former smoker. 2 ppd x 30-40 years. ETOH: denies Illicit drug use: denies IV drug use: denies PHYSICAL EXAMINATION: VITAL SIGNS: Please see below. Alert. Laying comfortably in bed. Speech is within normal limits. No new neuro focal deficits on exam. LABORATORY DATA: Please see below. IMPRESSION: Per Dr Mireles 1. Cervical spondylosis with myelopathy 2. Lumbar spondylosis with neurogenic claudication/ weakness 3. Lumbosacral spondylolisthesis 4. Peripheral neuropathy 5. Early dementia 6. Mild diffuse SHED HAND dysfunction PLAN/RECOMMENDATIONS: Appears to be doing well. If back pain worsens or if she would like to discuss her options she is welcome to follow up in the office. Jolie Pop PA-C. VS, I&O, 24H, [place] Vital Signs/I&O Vital Signs Date Time Temp Pulse Resp B/P Pulse Ox O2 Delivery O2 Flow Rate FiO2 07/29/16 14:00 99.3 18 18 125/60 98 Room Air I&O- Last 24 Hours up to 6 AM 07/29/16 06:00 Intake Total 1060 ml Output Total 1200 ml Balance -140 ml Laboratory Data 24H LABS Laboratory Tests 2 07/29/16 06:08: Albumin 1.7L, Anion Gap 9, Blood Urea Nitrogen 11, Creatinine 1.15H, Sodium Level 146H, Potassium Level 3.7, Chloride Level 119H, Carbon Dioxide Level 18L, Calcium Level 6.9L, Glomerular Filtration Rate 49.8 CBC/BMP Laboratory Tests 07/29/16 06:08 Calcium Level 6.9 L, Red Blood Count 2.50 L, Mean Corpuscular Volume 105.7 H, Mean Corpuscular Hemoglobin 34.1 H, Mean Corpuscular Hemoglobin Concent 32.2, Red Cell Distribution Width 15.2 H Microbiology Microbiology 07/21/16 Blood Culture - Final, Complete NO GROWTH AFTER 5 DAYS 07/21/16 Blood Culture - Final, Complete NO GROWTH AFTER 5 DAYS 07/28/16 Stool Occult Blood (MAYCO) - Final, Complete 07/22/16 Clostridium difficile (PCR) - Final, Complete 07/22/16 Stool Occult Blood (MAYCO) - Final, Complete 07/26/16 Urine Culture - Final, Complete 07/21/16 Urine Culture - Final, Complete Klebsiella Oxytoca JOLIE POP PA-C Jul 29, 2016 15:37
[2016-07-29] MEDS: SIMVASTATIN 10 MG TAB PO SCH (19:58)
--- NOTE | 2016-07-29 21:24 | IPN ---
DATE: 07/29/2016 SUBJECTIVE: Mrs. Gomez is seen this afternoon on her bedside. She is feeling better and reports that she has been ambulating in the hallway without any difficulty. She denies any dyspnea or chest pain. Her dizziness has improved. She has been receiving intravenous albumin infusions. PHYSICAL EXAMINATION: VITAL SIGNS: Temperature 99.3 degrees Fahrenheit, heart rate 78 per minute and respiratory rate 18 per minute. Blood pressure 102/50 mmHg sitting and 107/53 mmHg supine. Her standing blood pressure was about the same at 108/56 mmHg and oxygen saturation is 98% on room air. Intake and output records from yesterday show a positive fluid balance of 210. HEENT: Her head is atraumatic. Neck is supple and without jugular venous distention (JVD) or thyroid enlargement. Pupils are equal and reactive to light and sclerae are anicteric. Ears, nose and throat are unremarkable. HEART: Sounds are regular. LUNGS: Clear to auscultation. ABDOMEN: Soft and nontender. There is no palpable organomegaly. EXTREMITIES: Have no cyanosis or clubbing. NEUROLOGIC: She is awake, alert and oriented times three. LABORATORY DATA: Today's labs show WBC count 7.4, hemoglobin 8.5 and hematocrit 26.5. Platelets 183. Sodium 146 and potassium 3.7. BUN 11 and creatinine 1.15. Calcium level is 6.9 and albumin 1.7. PROBLEMS: 1. Congestive heart failure. At present there is no evidence of decompensation. She is almost even in her fluid balance. Her diuretics have been on hold. 2. Orthostatic hypotension. Most likely this was related to intravascular volume depletion caused by severe hypoalbuminemia. Her symptoms are improving as she is receiving intravenous (IV) albumin. I suggest high oral protein intake. 3. Acute kidney injury superimposed on chronic kidney disease. Her kidney function has been stable and she is not on any nephrotoxic medications. 4. Orthostatic hypotension. Blood pressure is reasonably well controlled. She is not symptomatic at present and continues with midodrine 10 mg three times a day. She is also receiving intravenous albumin infusions. 5. Anemia. We have started Aranesp 100 mcg once a week. She also continues with oral iron supplement. I feel that she will need further injections of Procrit or Aranesp as an outpatient once she is discharged. She will be followed up in the office.
[2016-07-30] VITALS: BP_SYST 124; BP_SYST 79; BP_SYST 84; BP_DIAS 49; BP_DIAS 53; BP_DIAS 59
[2016-07-30 04:00] VITALS: BP_SYST 100; BP_SYST 108; BP_SYST 117; BP_DIAS 54; BP_DIAS 56; BP_DIAS 59
[2016-07-30] MEDS: LEVOTHYROXINE 0.112 MG TAB (112 MCG) PO SCH (06:19)
[2016-07-30 07:08] LABS: MEAN CORPUSCULAR HEMOGLOBIN 32.2 pg (27.0-33.0); MEAN CORPUSCULAR HGB CONC 30.4 g/dl (32.0-36.5); MEAN CORPUSCULAR VOLUME 105.7 fl (80.0-96.0); RED CELL DISTRIBUTION WIDTH 15.2 % (11.5-14.5); WHITE BLOOD COUNT 7.7 K/mm3 (4.0-10.0)
[2016-07-30 07:32] LABS: ANION GAP 8 MEQ/L (8-16); BLOOD UREA NITROGEN 9 MG/DL (7-18); CALCIUM LEVEL 7.1 MG/DL (8.8-10.2); CARBON DIOXIDE LEVEL 20 MEQ/L (21-32); CHLORIDE LEVEL 118 MEQ/L (98-107); CREATININE FOR GFR 0.93 MG/DL (0.55-1.02); GLOMERULAR FILTRATION RATE > 60.0 (>45); GLUCOSE, FASTING 71 MG/DL (80-110); POTASSIUM SERUM 4.2 MEQ/L (3.5-5.1); SODIUM LEVEL 146 MEQ/L (136-145)
--- NOTE | 2016-07-30 08:21 | IPN ---
DATE: 07/30/2016 Patient seen and examined at the bedside. Chart has been reviewed. This morning, she complains of diarrhea about two to three times daily. No fever or chills. No complaints of dizziness or lightheadedness, shortness of breath, chest pain, pressure or tightness. Temperature 98, pulse 74, respiratory rate 16, blood pressure 108/56, 94% on room air. Generally, patient is awake, alert, oriented times three. Answering questions appropriately. No jugular venous distention, thyromegaly, cervical lymphadenopathy. Moist mucous membranes. Lungs diminished. Fine crackles at bilateral bases. Heart: S1, S2, sinus rhythm. Abdomen: Soft, nontender, nondistended. Positive bowel sounds times four quadrants. No rebound, guarding or hepatosplenomegaly. Extremities: No cyanosis or clubbing. Neurologically, awake, alert, oriented times three, answering questions appropriately. No facial asymmetry, tongue deviation. Tongue is midline. White count 7.7, hemoglobin 8.7, hematocrit 28, platelet count 210. Sodium 146, potassium 4.2, chloride 118, bicarbonate 20, BUN 9, creatinine 0.93, glucose 71. ASSESSMENT AND PLAN: This is a 71-year-old female with a history of chronic kidney disease, congestive heart failure, diastolic dysfunction, chronic hypotension, on midodrine, stage III chronic kidney disease, hypothyroidism, coronary artery disease (CAD), chronic back pain, chronic spinal stenosis and anemia of chronic disease, admitted 07/11/2016 to 07/17/2016 for congestive heart failure, was discharged home and returned to the emergency room after a fall with difficulty ambulating and was found to be severely orthostatic and dehydrated with acute on chronic renal failure. Since her hospital stay, she has been given increasing dose of midodrine, IV fluids with no improvement. Dr. Schilling has been consulted for fluid management. Per physical therapy, patient had tremors when she ambulates and complains of dizziness despite no complaint of bilateral weakness in upper extremities, numbness or tingling, MRI of the cervical spine was performed which showed chronic spinal stenosis and Dr. Villegas, neurology, was consulted who recommended neurosurgical consult. Dr. Mireles, neurosurgery, evaluated her spinal stenosis. She currently has no pain and opted to followup with him as outpatient as opposed to the [place] specialist that she previously saw. Due to orthostatic hypotension, patient has been given IV albumin infusion. Nutrition has consult for high protein shake. She is currently improving and no more complaints of dizziness or lightheadedness. Patient's renal failure has improved and currently within normal limits. CURRENT ISSUES: 1. Chronic orthostatic hypotension. Dr. Schilling has been consulted for fluid management. Bench Examiner has been consulted for protein supplementation. She is currently receiving albumin infusions 50 mL 25% twice daily until the patient's albumin is greater than 2.5. Patient's orthostatic vitals are improving. She currently has no complaints of dizziness, lightheadedness when she stands or ambulates. 2. Spinal stenosis. MRI of cervical and lumbar spine shows chronic spinal stenosis. She currently has no back pain. She previously followed up with specialist in [place] but currently is wanting to followup with Dr. Mireles, neurosurgery here in [place] for definitive treatment and surgery at some point. When she is discharged from the hospital, she will need to be medically optimized for any surgical intervention by her primary care physician. 3. Acute on chronic renal failure, stage III, currently within normal limits secondary to prerenal causes such as Lasix causing orthostasis and dehydration, currently at baseline. Nephrology has been consulted for fluid management. Avoid nephrotoxins. Renally dose all medications. Monitor for volume overload in light of daily albumin infusions. 4. Hypothyroidism. Normal TSH. Continue on levothyroxine. 5. Diastolic heart failure, no acute exacerbation. Ejection fraction (EF) of 60%. Diuretics have been held due to severe orthostasis requiring albumin infusions as well as acute on chronic renal failure. 6. Anemia. No overt GI bleed. Heme positive stool with stable hemoglobin. Defer to the patient currently asymptomatic, does not complain of any overt GI bleed. Outpatient followup and colonoscopy. 7. Bilateral lower extremity ulcers. Wound care and repositioning. 8. History of coronary artery disease, stent. On aspirin and Plavix. 9. Obesity and gastric bypass, stable. 10. Macrocytic anemia, stable. 11. Left-sided breast nodule with thickening bilaterally. Outpatient biopsy to be arranged by her primary care physician. 12. Severe protein calorie malnutrition with hypoalbuminemia. Receiving albumin infusions due to severe orthostasis. Bench Examiner consult for high protein shakes. 13. Diarrhea. check gi panel r/o acute infectious etiology and Cdiff. DISPOSITION: Once patient's albumin is greater than 2.5 and no complaints of orthostasis and passes a home safety evaluation, she may be discharged home. ODILIA
[2016-07-30] MEDS: FOLIC ACID 1 MG TAB PO SCH (08:58)
[2016-07-30] MEDS: PANTOPRAZOLE 40MG TAB (PROTONIX) PO SCH (08:58)
[2016-07-30] MEDS: MULTIVITAMINS/MINERALS THERAP 1 TAB PO SCH ×2 (08:58→20:44)
[2016-07-30] MEDS: FERROUS SULFATE 325MG TAB PO SCH ×2 (08:58→20:44)
[2016-07-30] MEDS: GABAPENTIN 100 MG CAP PO SCH ×2 (08:58→20:44)
[2016-07-30] MEDS: MIDODRINE 5 MG TAB PO SCH ×3 (08:58→16:15)
[2016-07-30] MEDS: CLOPIDOGREL 75 MG TAB PO SCH (08:58)
[2016-07-30] MEDS: ASPIRIN 81 MG ENTERIC TAB PO SCH (08:58)
--- NOTE | 2016-07-30 12:08 | IPN ---
DATE: 07/30/2016 Ms. Gomez is seen this morning on her bedside. She reports diarrhea since yesterday. She denies any vomiting or abdominal pain. She has no dyspnea or chest pain. PHYSICAL EXAMINATION Temperature 98 degrees Fahrenheit, heart rate 74 per minute and respiratory rate 16 per minute. Blood pressure 108/56 mmHg sitting and 100/54 mmHg standing. Oxygen saturation is 94% on room air. Head is atraumatic. Ears, nose and throat are unremarkable. She is edentulous and without any oral thrush or ulcers. Heart sounds are regular. Lungs are clear to auscultation bilaterally. Abdomen is soft and nontender. Bowel sounds are normal. Extremities have no cyanosis or clubbing. Skin has no rash or ulcers. Neurologically, she is awake, alert and oriented times three. Today's labs show sodium level 146 and potassium 4.2. CO2 is 20, calcium 7.1, BUN 9 and creatinine 0.93. Albumin has improved to 2.0. WBC count is 7.7, hemoglobin 8.7 and hematocrit 28.7. PROBLEMS: 1. Congestive heart failure.. At present, she is somewhat dehydrated due to ongoing diarrhea. She has been off diuretics. We will start her on IV fluid while monitoring her volume status. 2. Hypernatremia, most likely related to dehydration and diarrhea. She will be started on half normal saline at 75 mL per hour. We will also add 10 mEq potassium in IV fluid to prevent hypokalemia. 3. Acute and chronic kidney disease. Her kidney function is at its best. At present, we are going to hydrate her to prevent dehydration. 4. Anemia. The patient has been given Aranesp 100 mcg over the weekend. She is stable at present and does not need a transfusion. 5. Protein calorie malnutrition. This is related to chronic malnutrition and she is currently receiving intravenous albumin. I would also encourage to continue with increased oral protein intake.
[2016-07-30] MEDS: POTASSIUM CHLORIDE INJ 10 MEQ in NS 0.45% 1,000 ML IV SCH (13:33)
[2016-07-30 14:20] VITALS: BP 118/58
[2016-07-30 15:25] VITALS: BP 133/60
[2016-07-30 18:57] VITALS: BP 123/60
[2016-07-30] MEDS: SIMVASTATIN 10 MG TAB PO SCH (20:44)
[2016-07-30 22:00] VITALS: BP 109/78
[2016-07-31] VITALS (9 sets, daily range): BP systolic 102–149; BP diastolic 53–70
[2016-07-31] MEDS: POTASSIUM CHLORIDE INJ 10 MEQ in NS 0.45% 1,000 ML IV SCH (03:44)
[2016-07-31] MEDS: LEVOTHYROXINE 0.112 MG TAB (112 MCG) PO SCH (06:28)
[2016-07-31 07:00] LABS: MEAN CORPUSCULAR HEMOGLOBIN 33.8 pg (27.0-33.0); MEAN CORPUSCULAR HGB CONC 31.8 g/dl (32.0-36.5); MEAN CORPUSCULAR VOLUME 106.2 fl (80.0-96.0); RED CELL DISTRIBUTION WIDTH 15.6 % (11.5-14.5); WHITE BLOOD COUNT 6.9 K/mm3 (4.0-10.0)
[2016-07-31 07:19] LABS: ALBUMIN 1.8 GM/DL (3.2-5.2); ANION GAP 9 MEQ/L (8-16); BLOOD UREA NITROGEN 7 MG/DL (7-18); CALCIUM LEVEL 6.5 MG/DL (8.8-10.2); CARBON DIOXIDE LEVEL 17 MEQ/L (21-32); CHLORIDE LEVEL 116 MEQ/L (98-107); CREATININE FOR GFR 0.76 MG/DL (0.55-1.02); GLOMERULAR FILTRATION RATE > 60.0 (>45); GLUCOSE, FASTING 70 MG/DL (80-110); POTASSIUM SERUM 4.7 MEQ/L (3.5-5.1); SODIUM LEVEL 142 MEQ/L (136-145)
[2016-07-31] MEDS: MULTIVITAMINS/MINERALS THERAP 1 TAB PO SCH ×2 (09:15→20:20)
[2016-07-31] MEDS: CLOPIDOGREL 75 MG TAB PO SCH (09:15)
[2016-07-31] MEDS: PANTOPRAZOLE 40MG TAB (PROTONIX) PO SCH (09:15)
[2016-07-31] MEDS: MIDODRINE 5 MG TAB PO SCH ×3 (09:15→16:32)
[2016-07-31] MEDS: FERROUS SULFATE 325MG TAB PO SCH ×2 (09:15→20:20)
[2016-07-31] MEDS: GABAPENTIN 100 MG CAP PO SCH ×2 (09:15→20:20)
[2016-07-31] MEDS: FOLIC ACID 1 MG TAB PO SCH (09:15)
[2016-07-31] MEDS: ASPIRIN 81 MG ENTERIC TAB PO SCH (09:15)
[2016-07-31] MEDS: PERCOCET 5MG/325MG TAB PO PRN ×2 (09:18→17:29)
--- NOTE | 2016-07-31 17:25 | IPN ---
DATE: 07/31/2016 Patient is seen and examined. Reported improvement of weakness. Continued to have multiple bowel movements with intermittent incontinence because patient could not reach the bathroom fast enough, but seems to report that stools are more formed. As per patient, denies any chest pain, pressure or discomfort, denies any shortness of breath. VITAL SIGNS: Temperature 98.8, pulse 72, respirations 18, blood pressure 149/70, pulse oximetry 99% on room air. LABORATORY DATA: WBC 6.9, hemoglobin and hematocrit 7.7/24.3, platelets 171. Chemistry: Sodium 142, potassium 4.7, chloride 116, bicarbonate 17, BUN 7, creatinine 0.76. Gastrointestinal (GI) panel negative. PHYSICAL EXAMINATION: GENERAL: Patient awake, alert, oriented times three, in no acute distress. HEENT: Normocephalic, atraumatic. Neck supple. CARDIAC: Regular rate and rhythm, normal S1, S2. PULMONARY: Diminished breath sounds bilateral base, fine crackles bibasilar. ABDOMEN: Soft, obese, nontender. Positive bowel sounds. EXTREMITIES: No edema bilateral lower extremities. ASSESSMENT AND PLAN: This is a 71-year-old female patient with underlying medical history of chronic kidney disease (CKD) stage III, congestive heart failure (CHF) with diastolic dysfunction, history of hypotension on midodrine, hypothyroidism, coronary artery disease, chronic back pain, chronic spinal stenosis, and anemia of chronic disease, admitted 07/11/2016 to 07/17/2016 for congestive heart failure (CHF), discharged home, returned to the emergency room after a fall with difficulty ambulating and was found to have severe orthostatic hypotension and also dehydration with acute on chronic renal insufficiency. Since hospital stay, patient has increased dose of midodrine, IV fluids, and nephrology, Dr. Schilling, has been consulted, and has been given albumin as well, physical therapy, also noted to have mild tremors, numbness and tingling. MRI of the cervical spine performed showing chronic spinal stenosis and Dr. Alberto, neurology, has been consulted, recommended a neurosurgical consult. Dr. Mireles, neurosurgery, evaluated patient for spinal stenosis. Currently there is no pain and opted to followup as outpatient as opposed to [place] specialist as she previously saw. Due to orthostatic hypotension, patient has been given albumin infusion. Nutrition consult for increasing protein intake. Currently patient reports clinical improvement. Kidney function has improved to baseline. 1. Chronic orthostatic hypotension. Dr. Schilling has been consulted. IV fluids have been given. Albumin supplementation. Nutrition consultation. Orthostatic vital signs seem to be improved. Physical therapy. 2. Anemia, likely anemia of chronic disease. Patient having diarrhea with fecal occult positive. Will continue to monitor. Monitor hemoglobin and hematocrit. Transfused one unit packed red blood cells (PRBCs). Continue to monitor. 3. Spinal stenosis. MRI of cervical and lumbar spine shows chronic spinal stenosis. Currently has no back pain. Previously followed up with specialist in [place], but currently wanting to followup with Dr. Mireles, neurosurgery, in [place] for definitive treatment and surgery at some point. Outpatient followup with Dr. Mireles. 4. Acute on chronic renal failure, chronic kidney disease (CKD) stage III. Currently back to baseline. Continue to monitor BUN and creatinine. Appreciate nephrology's assistance. Monitor for fluid overload. 5. Hypothyroidism. Normal thyroid stimulating hormone (TSH). Continue levothyroxine. 6. Diastolic heart failure. Currently not in acute exacerbation. Ejection fraction (EF) of 60%. Diuresis has been on hold given orthostasis requiring albumin infusion. Continue to monitor. Will consider restarting diuresis once patient is back to baseline. 7. Anemia. No overt gastrointestinal (GI) bleed. Hemoccult positive with relatively stable hemoglobin and hematocrit. Currently slightly worse secondary to dilutional. Will need outpatient followup. Transfused one unit packed red blood cells (PRBCs). 8. Bilateral lower extremity ulcers. Wound care and repositioning. 9. History of coronary artery disease. Continue aspirin and Plavix. Patient has stents. 10. Obesity and gastric bypass, currently stable. 11. Macrocytic anemia, currently stable. Refer to above. 12. Left-sided breast nodule with thickening bilaterally. Outpatient biopsy to be arranged by her primary care provider. 13. Severe protein calorie malnutrition with hypoalbuminemia. Receiving albumin. Nutrition consult for high protein shakes. 14. Diarrhea. Gastrointestinal (GI) panel negative. Followup gastrointestinal (GI) studies. 15. Deep venous thrombosis (DVT) prophylaxis. Patient on aspirin and Plavix, sequential compression device. DISPOSITION: Pending physical therapy and clinical improvement.
[2016-07-31] MEDS: SIMVASTATIN 10 MG TAB PO SCH (20:20)
[2016-07-31] MEDS: ACETAMINOPHEN TAB 650MG DOSE (2X325MG) PO PRN (23:44)
[2016-08-01] MEDS: LEVOTHYROXINE 0.112 MG TAB (112 MCG) PO SCH (05:32)
[2016-08-01 06:00] VITALS: BP 115/55
[2016-08-01 07:20] LABS: MEAN CORPUSCULAR HEMOGLOBIN 30.9 pg (27.0-33.0); MEAN CORPUSCULAR HGB CONC 30.9 g/dl (32.0-36.5); RED CELL DISTRIBUTION WIDTH 19.5 % (11.5-14.5); WHITE BLOOD COUNT 5.5 K/mm3 (4.0-10.0)
[2016-08-01 07:25] LABS: MEAN CORPUSCULAR VOLUME 100.2 fl (80.0-96.0)
[2016-08-01 07:34] LABS: ANION GAP 4 MEQ/L (8-16); BLOOD UREA NITROGEN 8 MG/DL (7-18); CALCIUM LEVEL 7.4 MG/DL (8.8-10.2); CARBON DIOXIDE LEVEL 21 MEQ/L (21-32); CHLORIDE LEVEL 120 MEQ/L (98-107); GLOMERULAR FILTRATION RATE > 60.0 (>45); GLUCOSE, FASTING 68 MG/DL (80-110); POTASSIUM SERUM 4.4 MEQ/L (3.5-5.1); SODIUM LEVEL 145 MEQ/L (136-145)
[2016-08-01 09:39] LABS: MAGNESIUM LEVEL 2.3 MG/DL (1.8-2.4)
[2016-08-01] MEDS: MULTIVITAMINS/MINERALS THERAP 1 TAB PO SCH ×2 (09:39→20:27)
[2016-08-01] MEDS: PANTOPRAZOLE 40MG TAB (PROTONIX) PO SCH (09:39)
[2016-08-01] MEDS: CLOPIDOGREL 75 MG TAB PO SCH (09:39)
[2016-08-01] MEDS: FOLIC ACID 1 MG TAB PO SCH (09:39)
[2016-08-01] MEDS: FERROUS SULFATE 325MG TAB PO SCH ×2 (09:39→20:27)
[2016-08-01] MEDS: GABAPENTIN 100 MG CAP PO SCH ×2 (09:40→20:27)
[2016-08-01] MEDS: ASPIRIN 81 MG ENTERIC TAB PO SCH (09:40)
[2016-08-01] MEDS: MIDODRINE 5 MG TAB PO SCH ×3 (09:40→16:16)
[2016-08-01] MEDS: PERCOCET 5MG/325MG TAB PO PRN ×2 (09:42→18:03)
--- NOTE | 2016-08-01 11:49 | IPN ---
DATE OF VISIT: 08/01/2016 I have briefly visited Mrs. Gomez this morning. She was followed for acute renal failure and congestive heart failure. She has been doing very well with improved kidney function and volume status. She is currently off IV fluid. Her diarrhea is being investigated. Today, her BUN is only 8 and creatinine 0.90. Electrolytes are within normal range. From a renal standpoint, the patient is doing very well and does not need further followup at this point. I am signing off her case. Please do not hesitate to call me should you need any further assistance.
[2016-08-01 14:00] VITALS: BP 116/67
--- NOTE | 2016-08-01 14:28 | IPN ---
DATE: 08/01/2016 The patient seen and examined. No acute events overnight. Denies any fevers, chills, chest pain, pressure, discomfort. Able to ambulate, feeling comfortable. Tolerating oral. Reported diarrhea to be mildly improved. VITAL SIGNS: Temperature 98, pulse 65, respiratory rate 18, blood pressure 115/55, pulse ox 95% in room air. LABORATORY DATA: WBC 5.5, hemoglobin and hematocrit 9.2/29.8, platelets 165. Chemistry: Sodium 145, potassium 4.4, chloride 120, bicarbonate 21, BUN 8, creatinine 0.9. PHYSICAL EXAMINATION: GENERAL: The patient is awake, alert, oriented times three. No acute distress. HEENT: Normocephalic, atraumatic. NECK: Supple. CARDIAC: Regular rate and rhythm. Normal S1, S2. PULMONARY: Diminished breath sounds, bilateral base, fine crackles bibasilar. ABDOMEN: Soft, obese, nontender. Positive bowel sounds. EXTREMITIES: No edema bilateral lower extremities. ASSESSMENT/PLAN: This is a 71-year-old female patient with underlying medical history of chronic kidney disease stage III, congestive heart failure with diastolic dysfunction, history of hypotension on midodrine, hypothyroidism, coronary artery disease, chronic back pain, chronic spinal stenosis and anemia of chronic disease admitted initially 07/11/2016 to 07/17/2016 for congestive heart failure, discharged home. Returned to the emergency room after a fall and with difficulty ambulating and was found to have severe orthostatic hypotension and also dehydration with acute on chronic renal insufficiency since hospital stay, the patient dose of midodrine has been increased. IV fluids have been given. Nephrology, Dr. Schilling has been consulted. The patient has been given albumin as well. Physical therapy was done noticing mild tremor and numbness and tingling of upper extremities. MRI of the cervical spine was performed showing chronic spinal stenosis and Dr. Alberto of neurology has been consulted recommending neurosurgical consultation, Dr. Mireles evaluation for spinal stenosis. Currently, there is no pain and after discussion between neurosurgery and the patient, it was agreed to followup as an outpatient as opposed to [place] specialist as she previously was evaluated. Due to orthostatic hypotension, the patient has been give albumin. Nutrition consultation for increased protein intake. Currently, the patient reported clinical improvement. Kidney function has returned to baseline. PROBLEMS: 1. Chronic orthostatic hypotension: Dr. Schillnig has been consulted. IV fluids initially given. Albumin also given. Nutrition consultation. Increase protein intake. Orthostatic vital signs shows improvement. Physical therapy appreciated. The patient is clear for discharge from physical therapy perspective. 2. Anemia likely anemia of chronic disease: The patient has been having diarrhea. Fecal occult is positive. Diarrhea has also improved. Will continue to monitor hemoglobin and hematocrit. Transfused a total of one unit pack red blood cells. Will need outpatient followup for colonoscopy and esophagogastroduodenoscopy. 3. Spinal stenosis: MRI of the cervical and lumbar spine show chronic spinal stenosis, currently with no pain. Previously followed by Specialist in [place] but currently the patient wanted to followup with Dr. Mireles of neurosurgery in [place] for definitive treatment and surgery at some point. Outpatient followup with Dr. Mireles recommended. 4. Acute on chronic renal failure with baseline chronic kidney disease stage III, currently back to baseline. Continue to monitor BUN and creatinine. Appreciate nephrology assistance. Monitor for fluid overload. 5. Hypothyroidism: TSH appreciated. Continue levothyroxine. 6. History of diastolic heart failure; Currently compensated, in no acute exacerbation. Ejection fraction of 60%. Diuresis has been on hold. The patient has been given albumin and fluids. The patient is also on midodrine. Will restart diuresis when the patient is at baseline. Will restart diuresis at a lower dose. 7. Bilateral lower extremity ulcers: Wound care. Repositioning. 8. History of coronary artery disease: On aspirin and Plavix. The patient has stents. 9. Obesity and gastric bypass: Currently stable. 10. Macrocytic anemia: Currently stable. Refer to above. 11. Left-sided breast nodule with bilateral thickening. Outpatient biopsy to be managed by the patient's primary care provider. 12. Severe protein calorie malnutrition with hypoalbuminemia: Receiving albumin. Nutrition consulted. High protein intake recommended. 13. Diarrhea: GI panel negative. Followup GI studies. Currently improved. 14. Deep venous thrombosis prophylaxis: The patient is on aspirin and Plavix. Sequential compression device. DISPOSITION: Likely discharged tomorrow. The patient's hemoglobin and hematocrit remains stable.
[2016-08-01] MEDS: SIMVASTATIN 10 MG TAB PO SCH (20:26)
[2016-08-01 22:00] VITALS: BP 143/61
[2016-08-02] VITALS (7 sets, daily range): BP systolic 104–150; BP diastolic 58–87
[2016-08-02] MEDS: PERCOCET 5MG/325MG TAB PO PRN ×2 (02:07→19:36)
[2016-08-02] MEDS: LEVOTHYROXINE 0.112 MG TAB (112 MCG) PO SCH (05:30)
[2016-08-02 06:54] LABS: MEAN CORPUSCULAR HEMOGLOBIN 30.7 pg (27.0-33.0); MEAN CORPUSCULAR HGB CONC 30.8 g/dl (32.0-36.5); MEAN CORPUSCULAR VOLUME 99.8 fl (80.0-96.0); RED CELL DISTRIBUTION WIDTH 19.7 % (11.5-14.5); WHITE BLOOD COUNT 5.9 K/mm3 (4.0-10.0)
[2016-08-02 07:11] LABS: ALBUMIN 2.1 GM/DL (3.2-5.2); ANION GAP 7 MEQ/L (8-16); BLOOD UREA NITROGEN 8 MG/DL (7-18); CALCIUM LEVEL 7.2 MG/DL (8.8-10.2); CARBON DIOXIDE LEVEL 20 MEQ/L (21-32); CHLORIDE LEVEL 120 MEQ/L (98-107); CREATININE FOR GFR 0.84 MG/DL (0.55-1.02); GLOMERULAR FILTRATION RATE > 60.0 (>45); GLUCOSE, FASTING 67 MG/DL (80-110); SODIUM LEVEL 147 MEQ/L (136-145)
[2016-08-02] MEDS ORDERED: PERCOCET 5MG/325MG TAB PO ONE (09:30)
[2016-08-02] MEDS: MULTIVITAMINS/MINERALS THERAP 1 TAB PO SCH ×2 (09:35→20:26)
[2016-08-02] MEDS: PANTOPRAZOLE 40MG TAB (PROTONIX) PO SCH (09:35)
[2016-08-02] MEDS: CLOPIDOGREL 75 MG TAB PO SCH (09:36)
[2016-08-02] MEDS: FOLIC ACID 1 MG TAB PO SCH (09:36)
[2016-08-02] MEDS: ASPIRIN 81 MG ENTERIC TAB PO SCH (09:36)
[2016-08-02] MEDS: GABAPENTIN 100 MG CAP PO SCH ×2 (09:36→20:26)
[2016-08-02] MEDS: MIDODRINE 5 MG TAB PO SCH ×3 (09:36→16:47)
[2016-08-02] MEDS: FERROUS SULFATE 325MG TAB PO SCH ×2 (09:36→20:26)
[2016-08-02] MEDS: DOXYCYCLINE HYCLATE 100 MG TAB PO SCH ×2 (10:38→20:26)
--- NOTE | 2016-08-02 19:45 | CR ---
DATE: 08/02/2016 TIME: 6:21 p.m. CHIEF COMPLAINT: 71-year-old female seen for evaluation of an ulceration on the distal aspect of her left big toe and a loose big toenail on the right big toe. The patient states that she used to be a diabetic, and she had bariatric surgery, which resolved her diabetes. She is seen today for evaluation. ALLERGIES: LATEX. PAST MEDICAL HISTORY: 1. Congestive heart failure (CHF). 2. Chronic hypertension. 3. Chronic kidney disease. 4. Hypothyroidism. 5. Coronary arterial disease post stent placement. 6. Chronic back pain. 7. Chronic anemia. PAST SURGICAL HISTORY: 1. Bariatric surgery. 2. Left knee replacement. 3. Ankle reconstruction. 4. Rotator cuff repair. 5. Carpal tunnel release. 6. Wrist surgery. 7. Appendectomy. 8. Transluminal coronary angioplasty. 9. Right salpingo-oophorectomy. 10. Exploratory laparotomy. AT HOME MEDICATIONS: Include: - aspirin - Plavix 75 mg - cyanocobalamin - ergocalciferol 2000 units - ferrous sulfate - folic acid - furosemide - gabapentin - levothyroxine - pantoprazole - potassium - simvastatin PHYSICAL EXAMINATION: Alert, oriented 71-year-old female in no acute distress. Evaluation of her foot reveals an ulceration on the distal aspect of the left hallux with a yellow fibrinous base and a small amount of purulent discharge. This was previously cultured by the nursing staff. There is also a loose hallux nail plate of the right foot. The dorsalis pedis pulse is palpable. Posterior tibial pulse is not palpable. BEBE compression stockings are in place. Evaluation was made to debride the ulcerations and do a hallux nail plate avulsion. Informed consent was obtained. After appropriate time-out and consent by the patient, the ulcer on the left hallux was debrided. Utilizing a sterile scalpel, the ulcer was debrided through the subcutaneous tissues. There was a yellow fibrinous base. This measures 1.4 cm from medial to lateral and 1.0 cm from dorsal to plantar with 1 mm in depth, no undermining or hyperkeratotic rim. It is a stage III ulcer with early infection. It does not penetrate the bone. There is a loose right hallux nail plate. This had a total nail plate avulsion performed. Dry sterile dressing was applied. Orders will be written for Silvadene and a dressing twice a day to both big toes. Her questions were answered. Thank you for this consultation.
--- NOTE | 2016-08-02 20:07 | IPN ---
DATE: 08/02/2016 Patient is seen and examined. No acute events overnight. Continues to report diarrhea. Denies any fevers, chills, chest pain, pressure or discomfort. Currently comfortable. Nursing staff did notice bilateral toe ulcers that are slightly getting worse. VITAL SIGNS: Temperature 97.5, pulse 71, respirations 17, blood pressure 150/74, pulse oximetry 98% on room air. LABORATORY DATA: WBC 5.9, hemoglobin and hematocrit 9.1/29.5, platelets 201. Chemistry: Sodium 147, potassium 5, chloride 120, bicarbonate 20, BUN 8, creatinine 0.84, C-reactive protein negative. PHYSICAL EXAMINATION: GENERAL: Patient awake, alert, oriented times three, in no acute distress. HEENT: Normocephalic, atraumatic. Neck supple. CARDIAC: Regular rate and rhythm, normal S1, S2. PULMONARY: Diminished breath sounds bilateral bases. No significant crackles. ABDOMEN: Soft, obese, nontender. Positive bowel sounds. EXTREMITIES: No edema bilateral lower extremities. Bilateral 1st toe ulcers with purulent drainage. ASSESSMENT AND PLAN: This is a 71-year-old female patient with underlying medical history of chronic kidney disease (CKD) stage III, congestive heart failure (CHF), diastolic heart failure, history of hypotension on midodrine, hypothyroidism, coronary artery disease, chronic back pain, chronic spinal stenosis, and anemia of chronic disease, admitted initially 07/11/2016 to 07/17/2016, for congestive heart failure (CHF), discharged home, returned to the emergency room after a fall with difficulty ambulating and was found to have severe orthostatic hypotension and also dehydration with acute on chronic renal insufficiency. Since hospital stay, patient's dose of midodrine has been increased, IV fluids have been given. Nephrology, Dr. Schilling, has been consulted. Patient has been given albumin as well. Physical therapy has been done noticing mild tremors, numbness and tingling of upper extremities. MRI of the cervical spine was performed showing chronic spinal stenosis. Dr. Alberto, neurology, has been consulted. Recommended neurosurgical consult. Dr. Mireles evaluated patient for spinal stenosis. Currently there is no pain and after discussing with neurosurgery and the patient it was agreed to followup with neurosurgery as outpatient as opposed to [place] specialist as she previously was evaluated. Due to orthostatic hypotension, the patient has been given albumin. Nutrition consult for increased protein intake. Currently the patient reported clinical improvement. Kidney function has returned to baseline. 1. Chronic orthostatic hypotension. Dr. Schilling has been consulted. IV fluids initially given. Albumin also given. Nutrition consultation. Increased protein intake. Orthostatic vital signs shows improvement. Physical therapy appreciated. Patient's midodrine has also been increased. From physical therapy perspective patient is cleared for discharge. 2. Anemia, likely anemia of chronic disease. Patient is having diarrhea. Fecal occult positive. Diarrhea has improved. Will continue to monitor hemoglobin and hematocrit. Transfused a total of one packed red blood cells (PRBCs) during the hospital stay. Outpatient followup with gastrointestinal (GI) for colonoscopy and EGD. 3. Spinal stenosis. MRI of cervical and lumbar spine shows chronic spinal stenosis. Currently no significant pain. Previously saw specialist in [place], but patient has elected to followup with Dr. Mireles, neurosurgery, in [place] for possible definitive treatment and surgical options at some point down the road. Outpatient followup with Dr. Mireles recommended. 4. Acute on chronic renal failure and baseline chronic kidney disease (CKD) stage III. Currently back to baseline. Continue to monitor BUN and creatinine. Appreciate nephrology's assistance. Monitor fluid status for fluid overload. 5. Hypothyroidism. Thyroid stimulating hormone (TSH) appreciated. Continue levothyroxine. 6. History of diastolic heart failure. Currently compensated, in no acute exacerbation. Ejection fraction (EF) of 60%. Diuresis has been on hold. Patient has been given albumin and fluids and also midodrine. Will consider restarting diuresis at lower once the patient reaches baseline. Patient has also been having diarrhea. 7. Bilateral lower extremity ulcers. Wound care and repositioning. Dr. Grady has been consulted. 8. History of coronary artery disease. Aspirin and Plavix. Patient has stents. 9. Obesity and gastric bypass, currently stable. 10. Macrocytic anemia, currently stable. Refer to above. 11. Left-sided breast nodules with bilateral thickening. Outpatient biopsy to be managed by patient's primary care provider. 12. Severe protein calorie malnutrition and hypoalbuminemia. Receiving albumin. Nutrition consulted. High protein diet encouraged. 13. Diarrhea. Gastrointestinal (GI) panel negative. Followup gastrointestinal (GI) studies. Currently improved. 14. Deep venous thrombosis (DVT) prophylaxis. Patient on aspirin and Plavix, sequential compression device. DISPOSITION: Likely discharge over the next 24 hours pending podiatry consultation.
[2016-08-02] MEDS: SIMVASTATIN 10 MG TAB PO SCH (20:26)
[2016-08-02] MEDS: CYANOCOBALAMIN 500 MCG TAB PO SCH (20:26)
[2016-08-03] MEDS: SILVER SULFADIAZINE 1% CR 50 GM JAR TOP SCH ×3 (00:10→20:32)
[2016-08-03] MEDS: LEVOTHYROXINE 0.112 MG TAB (112 MCG) PO SCH (05:26)
[2016-08-03] MEDS: PERCOCET 5MG/325MG TAB PO PRN ×2 (05:26→17:40)
[2016-08-03 06:58] LABS: MEAN CORPUSCULAR HEMOGLOBIN 33.2 pg (27.0-33.0); MEAN CORPUSCULAR VOLUME 103.9 fl (80.0-96.0); RED CELL DISTRIBUTION WIDTH 19.7 % (11.5-14.5); WHITE BLOOD COUNT 7.1 K/mm3 (4.0-10.0)
[2016-08-03 07:08] LABS: CALCIUM LEVEL 7.3 MG/DL (8.8-10.2); CREATININE FOR GFR 1.04 MG/DL (0.55-1.02); GLOMERULAR FILTRATION RATE 55.9 (>45); MAGNESIUM LEVEL 1.9 MG/DL (1.8-2.4)
[2016-08-03 07:10] LABS: POTASSIUM SERUM 5.4 MEQ/L (3.5-5.1)
[2016-08-03] MEDS: FOLIC ACID 1 MG TAB PO SCH (08:07)
[2016-08-03] MEDS: DOXYCYCLINE HYCLATE 100 MG TAB PO SCH (08:07)
[2016-08-03] MEDS: ASPIRIN 81 MG ENTERIC TAB PO SCH (08:07)
[2016-08-03] MEDS: CYANOCOBALAMIN 500 MCG TAB PO SCH ×2 (08:07→20:31)
[2016-08-03] MEDS: FERROUS SULFATE 325MG TAB PO SCH ×2 (08:07→20:32)
[2016-08-03] MEDS: PANTOPRAZOLE 40MG TAB (PROTONIX) PO SCH (08:08)
[2016-08-03] MEDS: MULTIVITAMINS/MINERALS THERAP 1 TAB PO SCH ×2 (08:08→20:32)
[2016-08-03] MEDS: GABAPENTIN 100 MG CAP PO SCH ×2 (08:08→20:31)
[2016-08-03] MEDS: MIDODRINE 5 MG TAB PO SCH ×3 (08:08→16:41)
[2016-08-03] MEDS: CLOPIDOGREL 75 MG TAB PO SCH (08:08)
[2016-08-03 08:09] VITALS: BP 92/66
[2016-08-03] MEDS ORDERED: SODIUM CHLORIDE 0.9% 1000 ML IV ONE (09:00)
[2016-08-03 12:28] VITALS: BP 133/60
[2016-08-03 12:37] LABS: ANION GAP 5 MEQ/L (8-16); BLOOD UREA NITROGEN 11 MG/DL (7-18); CALCIUM LEVEL 7.4 MG/DL (8.8-10.2); CARBON DIOXIDE LEVEL 22 MEQ/L (21-32); CHLORIDE LEVEL 119 MEQ/L (98-107); CREATININE FOR GFR 0.96 MG/DL (0.55-1.02); GLOMERULAR FILTRATION RATE > 60.0 (>45); GLUCOSE, FASTING 71 MG/DL (80-110); SODIUM LEVEL 146 MEQ/L (136-145)
[2016-08-03 14:00] VITALS: BP 138/70
[2016-08-03] MEDS ORDERED: SOD POLYSTYRENE SULFONATE SUSP 15 GM/60 ML UD PO ONE (15:15)
[2016-08-03] MEDS ORDERED: hydroCHLOROthiazide 12.5 MG CAPSULE PO ONE (15:15)
[2016-08-03 16:41] VITALS: BP 119/57
--- NOTE | 2016-08-03 16:54 | IPN ---
DATE: 08/03/2016 I was reconsulted today by Dr. Mcfarlane for worsening hyperkalemia. I had signed off from Mrs. Gomez just a few days ago as her kidney function had improved and she was doing well. Over the last couple of days she has developed hyperkalemia with potassium level today up to 6.0. Plan for discharge has been canceled. The patient denies any nausea, vomiting, diarrhea, rectal bleeding or abdominal pain. She has no dyspnea or chest pain. She has been off diuretics due to acute kidney injury. She denies eating any unusual foods and has been consuming only hospital food. PHYSICAL EXAMINATION: Temperature 98.5 degrees Fahrenheit, heart rate 74 per minute and respiratory rate 16 per minute. Blood pressure 138/70 mmHg and oxygen saturation 99% on room air. Head is atraumatic. Ears, nose and throat are unremarkable. Neck is supple and without jugular venous distention (JVD) or thyroid enlargement. Heart sounds are regular and lungs sound clear to auscultation. Abdomen soft and nontender. Bowel sounds are normal and there is no palpable organomegaly. Extremities have no cyanosis or clubbing. Skin has no rash or ulcers. Neurologically she is awake, alert and oriented times three. Today's labs show WBC count 7.1, hemoglobin 9.8 and hematocrit 30.8. Sodium 146 and potassium 6.0. CO2 is 22, BUN 11 and creatinine 0.96. This morning her sodium was 145 and potassium 5.4. BUN was 10 and creatinine 1.04. PROBLEMS: 1. Hyperkalemia. I suspect this is related to high potassium diet and absence of diuretic use. We will also rule out any possibility of obstructive uropathy. 2. Acute on chronic kidney injury. Her kidney function is only slightly worse from the baseline. Will get a renal ultrasound to make sure that she does not have a unilateral obstruction due to possible kidney stone. 3. History of congestive heart failure. The patient has been off diuretics and I am going to restart her on low-dose hydrochlorothiazide with 12.5 mg dose today and once a day. 4. Hypernatremia. This is mild and I hope that this will also correct with diuretic use. DISPOSITION: I do not feel the patient needs a transfer to progressive care unit at this point. I am giving her one dose of Kayexalate 15 grams today which is likely to improve her hyperkalemia. Her electrolytes can be checked again tomorrow morning. Thank you for reconsulting us for this pleasant lady. We will follow her along with you.
[2016-08-03 18:32] LABS: CALCIUM LEVEL 7.2 MG/DL (8.8-10.2); CREATININE FOR GFR 1.03 MG/DL (0.55-1.02); GLOMERULAR FILTRATION RATE 56.6 (>45)
[2016-08-03 18:35] LABS: POTASSIUM SERUM 5.9 MEQ/L (3.5-5.1)
--- NOTE | 2016-08-03 19:05 | IPN ---
DATE: 08/03/2016 SUBJECTIVE: Patient seen and examined. No acute events overnight. Denies any chest pain, pressure, discomfort. Patient feels comfortable, tolerating oral. Denies any fevers, chills, nausea, vomiting. VITAL SIGNS: Temperature 98.5, pulse 74, respirations 16, blood pressure 119/57, pulse oximetry 99% on room air. LABORATORY DATA: WBC 7.1, hemoglobin and hematocrit 9.8 over 30.8, platelets 211. Chemistry: Sodium 145, potassium 5.4, chloride 120, bicarbonate 20, BUN 10, creatinine 1.04, repeat potassium 6. PHYSICAL EXAMINATION: GENERAL: Patient alert and oriented times three. In no acute distress. HEENT: Normocephalic, atraumatic. PULMONARY: Bilaterally clear to auscultation. Diminished breath sounds bilateral bases. No crackles. CARDIAC: Regular rate and rhythm. Normal S1, S2. ABDOMEN: Soft, obese, nontender. Positive bowel sounds. EXTREMITIES: No edema bilateral lower extremities. Bilateral first toe ulcers with drainage. ASSESSMENT AND PLAN: This is a 71-year-old female patient with underlying medical history of chronic kidney disease (CKD) stage III, congestive heart failure (CHF), diastolic heart failure, history of hypotension on midodrine, hypothyroidism, coronary arterial disease, chronic back pain, chronic spinal stenosis, and anemia of chronic disease, admitted initially on 07/11/2016, to 07/17/2016, for CHF, discharged home, returned to the emergency room after a fall with difficulty ambulating and was found to have severe orthostatic hypotension and also dehydration with acute on chronic renal insufficiency. Since hospital stay, the patient's dose of midodrine has been increased. Intravenous (IV) fluids have been given. Nephrology Dr. Schilling has been consulted. The patient has been given albumin as well. Physical therapy has been done, noticing mild tremor, numbness and tingling of upper extremities. MRI of the cervical spine was performed showing chronic spinal stenosis. Dr. Alberto of neurology has been consulted, recommended neurosurgical consultation. Dr. Mireles evaluated the patient for spinal stenosis. Currently there is no pain, and after discussion with neurosurgery the patient agreed to followup with neurosurgery as outpatient as opposed to specialist in [place] that the patient previously was evaluated. Due to orthostatic hypotension the patient has been given albumin. Nutrition consultation for increased protein intake. Currently patient reporting improvement. Kidney function almost returned to baseline. 1. Chronic orthostatic hypotension. Dr. Schilling has been consulted. IV fluids, albumin, nutrition consult, increase protein intake. Orthostatic vital signs have improved. Midodrine has been increased. Physical therapy cleared the patient for discharge. 2. Anemia, likely anemia of chronic disease. The patient was having diarrhea, fecal-occult positive. Diarrhea has improved. We will continue to monitor hemoglobin and hematocrit, transfused a total of one packed red blood cells (PRBCs) during hospital stay. Outpatient followup with gastroenterology (GI) for esophagogastroduodenoscopy (EGD) and colonoscopy. 3. Spinal stenosis. MRI of the cervical and lumbar spine shows chronic spinal stenosis. Currently no significant symptoms. Previously saw a specialist in [place] but patient selected to followup with Dr. Mireles, neurosurgery in [place], for possible definitive treatment and surgical options down the road. The patient will followup as per Dr. Mireles. 4. Acute on chronic renal insufficiency. Baseline chronic kidney disease (CKD) stage III, currently almost back to baseline. Continue to follow blood urea nitrogen (BUN) and creatinine. Appreciate nephrology assistance. Monitor fluid status. 5. Hyperkalemia. Case discussed with nephrology Dr. Schilling. Given a dose of Kayexalate. The patient was previously on Lasix. Currently on renal diet and hydrochlorothiazide has been started. 6. Hypothyroidism. Thyroid stimulating hormone (TSH) appreciated. Continue levothyroxine. 7. History of diastolic heart failure, currently compensated. No acute exacerbation. Ejection fraction (EF) of 60%. Diuresis has been on hold. The patient has been started on hydrochlorothiazide, albumin and fluids, and midodrine has also been given. 8. Bilateral lower extremity ulcers. Wound care and repositioning. Dr. Grady has done debridement, and outpatient followup. 9. History of coronary arterial disease. Continue aspirin and Plavix, hydrochlorothiazide. Monitor blood pressure. The patient had stents in the past. 10. Obesity and gastric bypass. Currently stable. 11. Macrocytic anemia, currently stable. Refer to above. 12. Left-sided breast nodule with bilateral thickening. Outpatient biopsy to be managed by primary care provider. 13. Severe protein calorie malnutrition, hypoalbuminemia. Receiving albumin. Nutrition consulted. High protein diet. 14. Diarrhea. Gastrointestinal (GI) panel negative. Clostridium (C.) difficile negative. Continues to improve. 15. Deep venous thrombosis (DVT) prophylaxis. Aspirin and Plavix. Sequential compression device. DISPOSITION: Will likely discharge over the next 24 hours, pending clinical improvement with resolution of hyperkalemia.
[2016-08-03] MEDS: SIMVASTATIN 10 MG TAB PO SCH (20:32)
[2016-08-03 22:00] VITALS: BP 127/60
[2016-08-04 06:00] VITALS: BP 149/63
[2016-08-04] MEDS: LEVOTHYROXINE 0.112 MG TAB (112 MCG) PO SCH (06:00)
[2016-08-04 06:32] LABS: MEAN CORPUSCULAR HEMOGLOBIN 32.3 pg (27.0-33.0); MEAN CORPUSCULAR HGB CONC 31.2 g/dl (32.0-36.5); MEAN CORPUSCULAR VOLUME 103.5 fl (80.0-96.0); RED CELL DISTRIBUTION WIDTH 19.5 % (11.5-14.5); WHITE BLOOD COUNT 6.8 K/mm3 (4.0-10.0)
[2016-08-04] MEDS: PERCOCET 5MG/325MG TAB PO PRN ×2 (06:34→15:05)
[2016-08-04 06:41] LABS: ANION GAP 6 MEQ/L (8-16); BLOOD UREA NITROGEN 11 MG/DL (7-18); CARBON DIOXIDE LEVEL 21 MEQ/L (21-32); CHLORIDE LEVEL 121 MEQ/L (98-107); GLOMERULAR FILTRATION RATE > 60.0 (>45); GLUCOSE, FASTING 68 MG/DL (80-110); POTASSIUM SERUM 4.8 MEQ/L (3.5-5.1); SODIUM LEVEL 148 MEQ/L (136-145)
--- NOTE | 2016-08-04 08:08 | ECGEPIP ---
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 THERE WAS NO REVERSAL. RF Electronically Signed On 08-04-2016 8:08:41 EDT by Bethel Sellers
[2016-08-04] MEDS: PANTOPRAZOLE 40MG TAB (PROTONIX) PO SCH (08:36)
[2016-08-04] MEDS: MULTIVITAMINS/MINERALS THERAP 1 TAB PO SCH (08:37)
[2016-08-04] MEDS: ASPIRIN 81 MG ENTERIC TAB PO SCH (08:37)
[2016-08-04] MEDS: CLOPIDOGREL 75 MG TAB PO SCH (08:37)
[2016-08-04] MEDS: GABAPENTIN 100 MG CAP PO SCH (08:37)
[2016-08-04] MEDS: MIDODRINE 5 MG TAB PO SCH ×3 (08:37→15:04)
[2016-08-04] MEDS: CYANOCOBALAMIN 500 MCG TAB PO SCH (08:37)
[2016-08-04] MEDS: FOLIC ACID 1 MG TAB PO SCH (08:37)
[2016-08-04] MEDS: SILVER SULFADIAZINE 1% CR 50 GM JAR TOP SCH (08:38)
[2016-08-04] MEDS ORDERED: hydroCHLOROthiazide 12.5 MG CAPSULE PO SCH (09:00)
[2016-08-04] MEDS ORDERED: DOXYCYCLINE HYCLATE 100 MG TAB PO SCH (09:00)
[2016-08-04] MEDS ORDERED: FERROUS SULFATE 325MG TAB PO SCH ×2 (12:00→18:00)
[2016-08-04] MEDS ORDERED: DOXY10CA PO (12:16)
[2016-08-04] MEDS ORDERED: HYDR12CA PO (12:16)
[2016-08-04] MEDS ORDERED: MIDO5TA PO (12:16)
[2016-08-04 14:00] VITALS: BP 110/64
[2016-08-04] MEDS: DARBEPOETIN 100 MCG/0.5 ML *NON-DIALYSIS* SYRINGE (J0881) SC SCH (15:05)
--- NOTE | 2016-08-04 20:43 | IPN ---
DATE: 08/04/2016 SUBJECTIVE: The patient was seen and examined at the bedside today in the morning. She feels much better. Her hyperkalemia is improving. The patient does not have any active complaints at this time. She is hemodynamically stable. REVIEW OF SYSTEMS: The patient denies any fevers, chills, rigors, headaches, nausea, vomiting, chest pain, shortness of breath, pain abdomen, constipation, or diarrhea. She denies any dizziness when she walks around; however, she has to use a walker. Rest of review of systems is negative. OBJECTIVE: VITAL SIGNS: Temperature is 98 degrees Fahrenheit, blood pressure is 149/63, pulse is 76, respiratory rate of 16, saturating 96% on room air. Intake and output: Urine output is not recorded well; however, the patient had four voids yesterday. Weight in the bed scale is not available. PHYSICAL EXAMINATION: GENERAL: The patient is awake, alert, and oriented times three. Lying in the bed in no apparent distress. HEAD/NECK: Extraocular muscles intact. Pupils equal, round, and reactive to light. Mucous membranes are moist. Patient's left side of the face is slightly heavier as compared with right because of the previous trauma when she was a teenager. CARDIOVASCULAR: S1, S2, regular rate. No murmur, rub, or gallop. RESPIRATORY: Chest is clear to auscultation bilaterally. Bilateral equal air entry. No rales or rhonchi. ABDOMEN: Soft. Positive bowel sounds. Nontender. No ascites. No organomegaly. EXTREMITIES: No clubbing or cyanosis. Pulses are 2+. CENTRAL NERVOUS SYSTEM (MEAT DEPARTMENT MANAGER): No focal neurological deficit. Power is 5/5 in all extremities. PSYCHIATRIC: Normal mood and affect. LABORATORY DATA: CBC showed a WBC 6.8, hemoglobin 9.3, platelets 245. BMP showed sodium 148, potassium 4.8, chloride 121, bicarbonate 21, BUN 11, creatinine 0.9. Calcium is 7, albumin 2.1. Plasma, cortisol, renin activity and aldosterone are pending. CURRENT MEDICATIONS: The patient's medications were all reviewed by me. She is currently on doxycycline 100 mg by mouth twice a day. She was started on hydrochlorothiazide 12.5 mg by mouth daily. She was given one dose of Kayexalate 15 grams by mouth yesterday. ASSESSMENT: A 71-year-old female who was admitted this time initially because of fluid overload. She was diuresed with intravenous (IV) Lasix drip. Hospital course was complicated with orthostatic hypotension. Nephrology service was called again for hyperkalemia. PLAN: 1. Hyperkalemia. The patient's potassium significantly better to 4.8. Yesterday her low-dose of thiazide diuretics have been started. I recommend to continue the diuretics. Potassium is acceptable at this time at 4.8. Continue low-potassium diet. 2. Acute kidney injury superimposed on chronic kidney disease. The patient's creatinine is 0.9 at this time, which is acceptable at this time. No further intervention is needed. 3. History of congestive heart failure and fluid overload. The patient's diuretics were on hold because of orthostatic hypotension. She was restarted on hydrochlorothiazide 12.5 mg by mouth daily. Continue current dose of hydrochlorothiazide and if needed, we shall restart a low dose of diuretics as outpatient. 4. Hypernatremia. The patient's sodium is 148. She was encouraged to drink water and keep herself hydrated. No need of IV fluids at this time. 5. Discharge planning. The patient's renal function is stable at this time. Hyperkalemia has normalized. She is currently asymptomatic, hemodynamically stable. It is okay to discharge the patient from nephrology standpoint. She needs to followup with nephrology within one week after discharge from the hospital. Plan of care was discussed with the hospitalist team, Dr. Coral Mcfarlane.
--- NOTE | 2016-08-05 18:58 | DSES ---
DATE OF ADMISSION: 07/21/2016 DATE OF DISCHARGE: 08/04/2016 MARKET CONSULTANT: Dr. Schilling. NEUROSURGEON: Dr. Mireles. PRIMARY CARE PROVIDER: Taz Echols. NEUROLOGIST: Dr. Alberto. FINAL DIAGNOSES: 1. Orthostatic hypotension. 2. Anemia. 3. Chronic spinal stenosis. 4. Acute on chronic renal insufficiency. 5. Hyperkalemia. 6. Hypothyroidism. 7. History of diastolic heart failure. 8. Bilateral lower extremity ulcers with methicillin-resistant Staphylococcus aureus (MRSA). 9. History of coronary arterial disease. 10. Obesity. 11. Gastric bypass history. 12. Microcytic anemia. 14. Left-sided breast nodules with bilateral thickening. 15. Severe protein calorie malnutrition. 16. Diarrhea. HISTORY OF PRESENT ILLNESS: This is a 71-year-old female patient with underlying medical history of congestive heart failure (CHF), which the patient just had an exacerbation in the hospital earlier in the month July 2016, also hypothyroidism, coronary arterial disease with angioplasty and stent, chronic back pain, chronic anemia, chronic hypotension. The patient stated that on the morning of admission, the patient had gotten out of the bed and tried to ambulate with her walker, and acutely became weak and the patient states that she then fell backwards onto her bottom and was unable to get back up due to the generalized weakness. The patient stated that she also had similar episodes three days prior, but did not fall. She denies loss of consciousness with the events. Denies shortness of breath, chest pain, nausea or vomiting, associate heart palpitations. She also states that she has felt that her hands and legs become shaky during the events; however, she denies being incontinent of bowel or urine. Denies biting her tongue. Denies having blood in her mouth after the event. Denies any history of stroke or seizures. The patient denies headache or vision change. Denies having experienced fevers or night sweats. HOSPITAL COURSE: The patient was admitted to the hospital, was found to have severe orthostatic hypotension possibly due to dehydration, given patient is on Lasix, and also with acute on chronic renal insufficiency. The patient was given intravenous (IV) hydration. The patient's dose of midodrine has been increased. Nephrology Dr. Schilling has been consulted. The patient also has been given albumin. Physical therapy was done. Also noted some mild tremor and numbness and tingling sensation of upper extremities. MRI of the cervical spine was performed showing chronic spinal stenosis. Dr. Alberto of neurology has been consulted. Recommended neurosurgical consult. The patient originally follows with [facility] for spine, but has been deemed not a surgical candidate. The patient was evaluated by Dr. Mireles for patient's spinal stenosis. After discussion, neurosurgery Dr. Mireles has agreed with the patient. The patient would like to followup with Dr. Mireles at [place] for possible definitive treatment. Nutrition was also consulted for severe protein calorie malnutrition. A high-protein diet was prescribed. The patient's kidney function improved. Hospital course was complicated with episode of hyperkalemia. This case was discussed with immigration consultant. Kayexalate one dose was given. The patient was placed on a low potassium diet. Hydrochlorothiazide low-dose was restarted. The patient's potassium subsequently improved. Furthermore, the patient's hospital stay was complicated with diarrhea, was mild fecal-occult positive. Hemoglobin and hematocrit remained stable. Transfused only one unit of packed red blood cells (PRBCs) with stable hemoglobin and hematocrit subsequently. Given the patient's comorbidity, the case was discussed with patient. Elected to followup esophagogastroduodenoscopy (EGD) and colonoscopy as outpatient once the patient is improved. Given hemoglobin and hematocrit are stable, bleeding most likely is not acute and most likely has stopped. We will continue to monitor as outpatient. Furthermore, Dr. Grady was consulted for lower extremity wound. Status post debridement, culture was sent. The patient was started on doxycycline to complete a course as outpatient. The patient's gastrointestinal (GI) panel was Clostridium (C.) difficile. The patient currently is comfortable in no acute distress, tolerating oral, ready for discharge for further care as outpatient. VITAL SIGNS: Temperature 98.1, pulse 65, respirations 18, blood pressure 110/64, pulse oximetry 98% on room air. LABORATORY DATA: WBC 6.8, hemoglobin and hematocrit 10.3 over 32.9, platelets 245. Chemistry: Sodium 148, potassium 4.8, chloride 121, bicarbonate 21, BUN 11, creatinine 0.9. DISCHARGE MEDICATIONS: - doxycycline 100 mg by mouth twice a day 14 tablets - hydrochlorothiazide 12.5 mg by mouth daily - midodrine 5 mg by mouth three times a day - aspirin 81 mg by mouth daily - bacitracin ointment bilateral - calcium by mouth twice a day - Plavix 75 mg by mouth daily - vitamin B12 1000 mcg injection intramuscular monthly - Procrit injection monthly - vitamin D 2000 units by mouth daily - ferrous sulfate 325 mg by mouth twice a day - folic acid 1 mg by mouth daily - gabapentin 300 mg by mouth twice a day - Synthroid 112 mcg by mouth daily - multivitamin one tablet by mouth daily - nitroglycerin 0.4 mg sublingual as needed - Percocet 5/325 one tablet by mouth three times a day as needed - Protonix 40 mg by mouth daily - Zemplar 1 mcg by mouth daily - Zocor 10 mg by mouth at bedtime - Carafate 1 gram by mouth before meals and at bedtime DISCHARGE INSTRUCTIONS: The patient is instructed to followup with her primary care provider in seven days, immigration consultant in seven days for followup of hemoglobin and hematocrit and basic metabolic panel. Furthermore, instructed to followup with neurosurgery, Dr. Mireles, in 1-2 weeks, and followup with mail opener as outpatient for possible EGD/colonoscopy. Return to the hospital if symptoms worsen. Home with services.
[2016-08-11 00:06] LABS: ALDOSTERONE <1.0 ng/dL (0.0-30.0)
== END 2016-08-04 17:39 | disposition home health service (06) | DRG 673 ==
LOC: M ED 13:21 → EEVIPCON 14:00 → M ED INP 14:00 → M PCU 18:09 → M MS5PR 07-26 18:05 → M MSPAV 07-30 14:10
PROVIDERS: ADMIT Internal Medicine; ATTEND Hospitalist
PROC: 30233J1 Transfusion of Nonautologous Serum Albumin into Peripheral Vein, Percutaneous Approach (ICD-10-PCS; 2016-07-27)
PROC: 30233N1 Transfusion of Nonautologous Red Blood Cells into Peripheral Vein, Percutaneous Approach (ICD-10-PCS; 2016-07-31)
PROC: 0JBR0ZZ Excision of Left Foot Subcutaneous Tissue and Fascia, Open Approach (ICD-10-PCS; principal; 2016-08-02)
PROC: 0HDRXZZ Extraction of Toe Nail, External Approach (ICD-10-PCS; 2016-08-02)
DX: N17.9 Acute kidney failure, unspecified (principal); E43 Unspecified severe protein-calorie malnutrition; I50.32 Chronic diastolic (congestive) heart failure; M47.12 Other spondylosis with myelopathy, cervical region; R19.7 Diarrhea, unspecified; L89.152 Pressure ulcer of sacral region, stage 2; D63.8 Anemia in other chronic diseases classified elsewhere; E03.9 Hypothyroidism, unspecified; E87.5 Hyperkalemia; I25.10 Atherosclerotic heart disease of native coronary artery without angina pectoris; L97.529 Non-pressure chronic ulcer of other part of left foot with unspecified severity; N18.3 Chronic kidney disease, stage 3 (moderate); L60.8 Other nail disorders; M47.896 Other spondylosis, lumbar region; B95.62 Methicillin resistant Staphylococcus aureus infection as the cause of diseases classified elsewhere; I73.9 Peripheral vascular disease, unspecified; E88.09 Other disorders of plasma-protein metabolism, not elsewhere classified; M48.07 Spinal stenosis, lumbosacral region; G62.9 Polyneuropathy, unspecified; M48.02 Spinal stenosis, cervical region; M43.17 Spondylolisthesis, lumbosacral region; I95.1 Orthostatic hypotension; N63 Unspecified lump in breast; Z79.82 Long term (current) use of aspirin; Z79.899 Other long term (current) drug therapy; Z79.02 Long term (current) use of antithrombotics/antiplatelets; Z91.040 Latex allergy status; Z90.721 Acquired absence of ovaries, unilateral; Z83.3 Family history of diabetes mellitus; Z82.49 Family history of ischemic heart disease and other diseases of the circulatory system; Z87.891 Personal history of nicotine dependence; Z84.89 Family history of other specified conditions; Z98.84 Bariatric surgery status; Z95.5 Presence of coronary angioplasty implant and graft

== ENCOUNTER → 2016-11-14 | Outpatient (REF) | payer MEDICARE, MEDICAID ==
[~2016-11-14] MED LIST changes: +DOXY100T2 PO; -FOLI1TAB2 PO; +FOLI1TAB4 PO; +HYDR12CA PO; +MIDO2.5T PO; -MIDO25TA PO; +MIDO5TA PO; +PLAV1TAB2 PO; -PLAV75TA38 PO
[2016-11-14 20:32] LABS: PERCENT SATURATION 34.7 % (13.2-45.0)
[2016-11-15 16:05] LABS: FOLATE > 24.0 NG/ML; VITAMIN B12 LEVEL 204 PG/ML
== END ==
LOC: M LAB REF 18:05
PROVIDERS: ATTEND Internal Medicine Nephrology
DX: D64.9 Anemia, unspecified (principal)

== ENCOUNTER → 2017-08-08 | Outpatient (REF) | payer MEDICARE, MEDICAID ==
[2017-08-08 17:39] LABS: HEMATOCRIT 32.3 % (36.0-47.0)
[2017-08-08 17:40] LABS: RETICULOCYTE % 2.8 % (0.5-1.5)
[2017-08-08 17:45] LABS: FERRITIN 410 NG/ML (8-252); IMMUNOGLOBULIN G 826 MG/DL (681-1648); IMMUNOGLOBULIN M 25.6 MG/DL (40-230); IRON (FE) 101 UG/DL (50-170); PERCENT SATURATION 37.3 % (13.2-45.0); TOTAL IRON BINDING CAPACITY 271 UG/DL (250-450)
[2017-08-08 17:49] LABS: REASON FOR REVIEW ANEMIA / RBC MORPH; SLIDE REVIEW Report; SOURCE PERIPHERAL SMEAR
[2017-08-08 18:08] LABS: TOTAL PROTEIN,RANDOM URINE 8.2 MG/DL (0.0-12.0); URINE TOTAL PROTEIN 8.2 MG/DL (0-12)
[2017-08-08 18:20] LABS: VITAMIN B12 LEVEL 134 PG/ML (247-911)
[2017-08-09 11:07] LABS: PRETREATED FOLATE FOR RBCFOL 13.4 NG/ML; RBC FOLATE 871.2 NG/ML (280-791)
[2017-08-12 11:29] LABS: ALBUMIN 4.35 GM/DL (3.29-5.55); ALBUMIN % 62.2 % (55.8-66.1); ALPHA-1-GLOBULIN % 5.3 % (2.9-4.9); ALPHA-1-GLOBULINS 0.37 GM/DL (0.17-0.41); ALPHA-2-GLOBULINS 0.71 GM/DL (0.42-0.99); ALPHA-2-GLOBULINS % 10.1 % (7.1-11.8); BETA-1-GLOBULINS 0.36 GM/DL (0.28-0.60); BETA-1-GLOBULINS % 5.2 % (4.7-7.2); BETA-2-GLOBULINS % 4.3 % (3.2-6.5); GAMMA GLOBULIN % 12.9 % (11.1-18.8)
[2017-08-12 14:12] LABS: FREE KAPPA LIGHT CHAINS SERUM 79.6 mg/L (3.3-19.4); FREE LAMBDA LIGHT CHAINS SERUM 57.3 mg/L (5.7-26.3); HOMOCYST(E)INE SERUM 36.3 umol/L (0.0-15.0); KAPPA/LAMBDA RATIO SERUM 1.39 (0.26-1.65)
[2017-08-12 14:12] LABS: METHYLMALONIC ACID 3176 nmol/L (0-378)
== END ==
LOC: M LAB REF 16:48
DX: D53.9 Nutritional anemia, unspecified (principal)
CPT/HCPCS: 83550

== ENCOUNTER → 2017-09-20 | Outpatient (REF) | payer MEDICARE, MEDICAID ==
[2017-09-20 14:22] LABS: VITAMIN B12 LEVEL 738 PG/ML (247-911)
[2017-09-23 14:29] LABS: HOMOCYST(E)INE SERUM 17.3 umol/L (0.0-15.0)
[2017-09-23 14:29] LABS: Methylmalonic Acid 248 nmol/L (0-378)
== END ==
LOC: M LAB REF 13:08
DX: D64.9 Anemia, unspecified (principal); D51.8 Other vitamin B12 deficiency anemias
CPT/HCPCS: 82607

== ENCOUNTER → 2017-10-25 | Outpatient (CLI) | payer MEDICARE, MEDICAID | LOC: M RAD 16:47 | DX: N17.9 Acute kidney failure, unspecified (principal); N13.30 Unspecified hydronephrosis; I50.32 Chronic diastolic (congestive) heart failure; Z98.84 Bariatric surgery status; K80.20 Calculus of gallbladder without cholecystitis without obstruction; I70.0 Atherosclerosis of aorta; M51.34 Other intervertebral disc degeneration, thoracic region; M51.36 Other intervertebral disc degeneration, lumbar region; R16.0 Hepatomegaly, not elsewhere classified | CPT/HCPCS: 74176 ==

== ENCOUNTER → 2017-12-20 | Outpatient (REF) | payer MEDICARE, MEDICAID ==
[2017-12-25 00:06] LABS: Methylmalonic Acid 444 nmol/L (0-378)
[2017-12-25 00:06] LABS: HOMOCYST(E)INE SERUM 22.6 umol/L (0.0-15.0)
== END ==
LOC: M LAB REF 13:32
DX: D51.8 Other vitamin B12 deficiency anemias (principal)
CPT/HCPCS: 82607

== ENCOUNTER → 2018-03-17 | Outpatient (REF) | payer MEDICARE ==
[2018-03-18 14:23] LABS: FERRITIN 335 NG/ML (8-252); IRON (FE) 31 UG/DL (50-170); PERCENT SATURATION 16.7 % (13.2-45.0); TOTAL IRON BINDING CAPACITY 186 UG/DL (250-450)
== END ==
LOC: M LAB REF 03-18 12:56
DX: D50.9 Iron deficiency anemia, unspecified (principal)
CPT/HCPCS: 83550

== ENCOUNTER → 2018-03-19 | Outpatient (CLI) | payer MEDICARE | LOC: M RAD 15:04 | DX: J90 Pleural effusion, not elsewhere classified (principal); I51.7 Cardiomegaly; I70.0 Atherosclerosis of aorta; N18.3 Chronic kidney disease, stage 3 (moderate); I25.5 Ischemic cardiomyopathy; R60.1 Generalized edema | CPT/HCPCS: 71046 ==

== ENCOUNTER → 2018-03-20 | Outpatient (CLI) | payer MEDICARE | LOC: M RAD 16:13 | DX: K80.20 Calculus of gallbladder without cholecystitis without obstruction (principal); N26.1 Atrophy of kidney (terminal); N28.1 Cyst of kidney, acquired; N18.3 Chronic kidney disease, stage 3 (moderate); I25.5 Ischemic cardiomyopathy; R60.1 Generalized edema; N17.9 Acute kidney failure, unspecified | CPT/HCPCS: 76775 ==

== ENCOUNTER 2018-04-04 15:21 | Outpatient (RCR) | payer MEDICAID, MEDICARE ==
--- NOTE | 2018-03-10 14:54 | CARECAPL ---
Assessment Account #s: Initial Assessment General Diagnoses: CABG, Stent Date of event: Jan 31, 2018 Physician: Ildefonso Guzman Allergies: Coded Allergies: Latex (Verified Allergy, Intermediate, BLISTERS, 07/10/12) Date Entered Program: Mar 10, 2018 Risk strat for cardiac event: Low Exercise Date: Mar 10, 2018 Assessment: Initial Assessment Exercise Prescription Plan educate and increase endurance through exercise Modalities initiated: Nustep (mets 1.9 RPE 3), Arm Aerometer (mets 1.6 RPE 3), Dumbells (1lb RPE 3) Frequency: 3 Duration (Minutes) 30-60 minutes total exercise a day. 15-20 work intervals in minutes. prn rest intervals in minutes. Functional Capacity Goal Sustained Metabolic Equivalent of a task (MET) goal of 2.25-3.5 for 15-20 minutes. Intensity: 3-Moderate Progression (METS) Increase by: 0.5 METS every: 3-5 sessions Angina with ex: No Target Heart Rate rest + 35-40 per beta elizabeth therapy Resistance Training: Yes Weight (pounds): 1 Reps: 8-12 Hypertension: Yes Hypertension controlled with: Medication Resting 116/57 Peak Exercise BP 120/80 Meds metoprolol succinate Medications Scheduled (Calcium 500 500-250-200 mg-mg-Unit), 1 TAB PO DAILY, (Reported) Aspirin (Aspirin EC), 81 MG PO DAILY, (Reported) Clopidogrel Bisulfate (Plavix), 75 MG PO DAILY, (Reported) Famotidine (Pepcid), 40 MG PO DAILY, (Reported) Folic Acid (Folic Acid), 1 MG PO DAILY, (Reported) Furosemide (Lasix), 40 MG PO DAILY, (Reported) Gabapentin (Gabapentin), 300 MG PO BID, (Reported) Levothyroxine Sodium (Synthroid), 112 MCG PO DAILY, (Reported) Metoprolol Succinate (Metoprolol Succinate ER), 25 MG PO DAILY, (Reported) Midodrine HCl (Midodrine HCl), 5 MG PO 08,12,16 Multivitamins *[facility] STOCKED* (Thera M Plus *[facility]C STOCKED*), 1 TAB PO BID, (Reported) Paricalcitol (Zemplar), 1 MCG PO DAILY, (Reported) Rosuvastatin (Crestor), 20 MG PO DAILY, (Reported) Sucralfate (Sucralfate), 1 GM PO BID, (Reported) Scheduled PRN Nitroglycerin (Nitrostat), 0.4 MG SL NITRO PRN for ANGINA, (Reported) Oxycodone/Acetaminophen (Oxycodone/Acetaminophen 5-325 mg), 1 TAB PO BIDP PRN for PAIN, (Reported) Discontinued Medications Ferrous Sulfate (Ferrous Sulfate), 325 MG PO BID, (Reported) Discontinued Reason: Pt states not taking Simvastatin (Zocor), 10 MG PO QHS, (Reported) Discontinued Reason: PCP discontinued med Target Goals Individual exercise Rx (1) BP 140/90 or 130/80 if DM or CKD (1) Aerobic active 30+min 5 days per week (1) Nutrition Date: Mar 10, 2018 Assessment: Initial Assessment Lipids Total Cholesterol (199), High Density Lipids (HDL) (69), Low Density Lipids (LDL) (100), Triglycerides (148), Lipid med/supplement (Crestor) Lipid- med/supplement Crestor Diabetes Diabetes: No Weight Management Weight (lbs): 147.2 Height (inches): 65 Waist Circumference (Inches): 39 BMI: 24.46 Special Diet: low salt, low-fat Vitamin/Supplements: Multivitamin Alcohol: none Diet Access Tool: Rate your plate Score: 63 Intervention Nurse/patient discussion: Yes Referral to Diabetes education: No Referral to lipid clinic: No Education Eating Healthy Target goal LDL-C<100 if triglycerides are >200 Non-HDL-C should be <130 (1) LDL-C<70 for high risk patients (4) HbA1c<7% (1) BMI<25 Waist cir<40in M/<35in F (1) Education Date: Mar 10, 2018 Assessment: Initial Assessment Learning Barriers: cognitive (age related) Knowledge Test Score: 8 Family Support: Yes Tobacco use: No Quit: >6 months Intervention Referral to smoking cessation: No Education: tobacco triggers, CAD, Risk factors, med compliance, cardiac A&P, Angina S/S, Sexuality Target Goals Complete cessation of tobacco use (1). Psychosocial Date: Mar 10, 2018 Assessment: Initial Assessment Psych Test (Initial/Discharge) Tool Used: CESD Score: 15 Intervention Physician Consult: No Physician Referral: No Stress Management Class: Yes Uses Stress Management Skills: Yes Education Education: Coping Techniques, S/S depression, Relaxation Techniques Target Goal Assess presence or absence of depression using a valid screening tool (1). Maximize coping skills (2). Positive support system (2). Patient/Program Goal Preventative Medication: Yes Aspirin, Yes Clopidogrel, Yes Beta blockade, Yes Statin/OTR lipid Lowering Fall Risk Assess: Yes Assisstive Device: walker Provider Assessment Session Number: 1 Provider Assessment: Proceed with rehab Minal Taylor RN Mar 10, 2018 14:54
[~2018-04-04 15:21] MED LIST changes: +CRES10TA32 PO; -FOLI1TAB4 PO; +FOLI1TAB5 PO; -GABA-282 PO; +GABA-843 PO; +KLOR10TA76 PO; +LASI40TA PO; +METO1TAB32 PO; -PANT40TA2 PO; +PANT40TA3 PO; +PEPC1TAB2 PO; -POTA10CA PO
== END 2018-04-07 ==
LOC: M CR 15:21
PROVIDERS: ATTEND Internal Medicine Cardiovascular Disease
DX: Z95.1 Presence of aortocoronary bypass graft (principal); Z98.61 Coronary angioplasty status

== ENCOUNTER 2018-04-16 08:27 | Outpatient (CLI) | payer MEDICAID, MEDICARE ==
[2018-04-16] VITALS (8 sets, daily range): BP systolic 111–138; BP diastolic 57–63
[~2018-04-16] VITALS: Ht 165.1 cm; Wt 66.8 kg
[~2018-04-16 08:27] MED LIST changes: +FOLI1TAB11 PO; -FOLI1TAB5 PO; -LASI20TA PO; +LASI20TA3 PO; -LASI40TA PO; +LASI40TA9 PO
[2018-04-16] MEDS ORDERED: IRON SUCROSE 25 MG in NS 50 ML IV ONE (09:00)
[2018-04-16] MEDS ORDERED: IRON SUCROSE 375 MG in NS 250 ML IV ONE (09:00)
== END 2018-04-16 14:50 | disposition home or self-care (01) ==
LOC: M INFU 08:27
PROVIDERS: ATTEND Internal Medicine Nephrology
DX: D50.9 Iron deficiency anemia, unspecified (principal); Z91.040 Latex allergy status
CPT/HCPCS: 96365; 96366; J1756

== ENCOUNTER 2018-05-01 14:46 | Outpatient (RCR) | payer MEDICARE | END 2018-05-08 | LOC: M CR 14:46 | PROVIDERS: ATTEND Internal Medicine Cardiovascular Disease | DX: Z51.89 Encounter for other specified aftercare (principal); Z95.1 Presence of aortocoronary bypass graft; Z98.61 Coronary angioplasty status ==

== ENCOUNTER 2018-05-30 14:58 | Outpatient (RCR) | payer MEDICARE ==
--- NOTE | 2018-05-30 15:44 | CARECAPL ---
Assessment Account #s: Re-Assessment II (DISCHARGE) General Diagnoses: CABG, Stent Date of event: Jan 31, 2018 Physician: Ildefonso Guzman Allergies: Coded Allergies: Latex (Verified Allergy, Intermediate, BLISTERS, 07/10/12) Date Entered Program: Mar 10, 2018 Risk strat for cardiac event: Moderate Exercise Date: May 30, 2018 Assessment: Followup/Discharge Exercise Prescription Plan TO EDUCATE AND BUILD ENDURANCE THROUGH MONITORED EXERCISE PROGRAM Modalities initiated: Cardio-Strider (METS=2.2/RPE=2), Nustep (METS=2.6/RPE=2), Arm Aerometer (METS=1.7/RPE=2), Dumbells (4#/RPE=2), Recumbent Bike (METS=3.1/RPE=2) Frequency: 3 Duration (Minutes) 30-60 minutes total exercise a day. 8-10 work intervals in minutes. 5 MIN PRN rest intervals in minutes. Functional Capacity Goal Sustained Metabolic Equivalent of a task (MET) goal of 2.25-3.5 for 15-20 minutes. Intensity: 3-Moderate Progression (METS) Increase by: METS every: sessions Angina with ex: No Target Heart Rate +35-40 Resistance Training: Yes Weight (pounds): 4 Reps: 12-15 Hypertension: Yes Hypertension controlled with: Medication Resting 114/58 Peak Exercise BP 152/76 Medications Scheduled (Calcium 500 500-250-200 mg-mg-Unit), 1 TAB PO DAILY, (Reported) Aspirin (Aspirin EC), 81 MG PO DAILY, (Reported) Clopidogrel Bisulfate (Plavix), 75 MG PO DAILY, (Reported) Famotidine (Pepcid), 40 MG PO DAILY, (Reported) Folic Acid (Folic Acid), 1 MG PO DAILY, (Reported) Furosemide (Lasix), 40 MG PO DAILY, (Reported) Gabapentin (Gabapentin), 300 MG PO BID, (Reported) Levothyroxine Sodium (Synthroid), 112 MCG PO DAILY, (Reported) Metoprolol Succinate (Metoprolol Succinate ER), 25 MG PO DAILY, (Reported) Midodrine HCl (Midodrine HCl), 5 MG PO 08,12,16 Multivitamins *[facility] STOCKED* (Thera M Plus *[facility] STOCKED*), 1 TAB PO BID, (Reported) Paricalcitol (Zemplar), 1 MCG PO DAILY, (Reported) Rosuvastatin (Crestor), 20 MG PO DAILY, (Reported) Sucralfate (Sucralfate), 1 GM PO BID, (Reported) Scheduled PRN Nitroglycerin (Nitrostat), 0.4 MG SL NITRO PRN for ANGINA, (Reported) Oxycodone/Acetaminophen (Oxycodone/Acetaminophen 5-325 mg), 1 TAB PO BIDP PRN for PAIN, (Reported) Current BP 120/76 Med Change: No Intervention Home exercise: Type (WALKING, WEIGHTS, MAY JOIN GYM), Frequency (3-5 DAYS PER WEEK), Duration (30-60 MINUTES) Resistance Training: Yes Education: Self pulse, Ex safety, S/S to report, Low NA diet, BP medication, RPE Scale, Equipment orientation, warm up/cool down, Understand BP, Physical Active Education Goals Met: Yes Target Goals Individual exercise Rx (1) BP 140/90 or 130/80 if DM or CKD (1) Aerobic active 30+min 5 days per week (1) Nutrition Date: May 30, 2018 Assessment: Followup/Discharge Lipid- med/supplement CRESTOR Med Change: No Diabetes Diabetes: No Monitor Blood Sugar at home: No Medication Change: No Blood sugar in range: Yes Weight Management Weight (lbs): 144 Special Diet: low salt, low-fat Vitamin/Supplements: Multivitamin, Other (FOLIC ACID) Alcohol: none Diet Access Tool: Rate your plate Score: 51 Current Weight (pounds): 149.2 Intervention Chief Juvenile Probation Officer Consult: No Nurse/patient discussion: Yes Diet Class: No Referral to Diabetes education: No Referral to lipid clinic: No Referral to weight mangement p: No Education Eating Healthy Education Goals Met: Yes Target goal LDL-C<100 if triglycerides are >200 Non-HDL-C should be <130 (1) LDL-C<70 for high risk patients (4) HbA1c<7% (1) BMI<25 Waist cir<40in M/<35in F (1) Education Date: May 30, 2018 Assessment: Followup/Discharge Learning Barriers: ready Knowledge Test Score: 5 Family Support: Yes Tobacco use: No Tobacco Use Smokeless tobacco: No Intervention Referral to smoking cessation: No Individual education and couns: No Tobacco Adjunct: No Education class schedule given: No Attended education classes: No Education: tobacco triggers, CAD, Risk factors, med compliance, cardiac A&P, Angina S/S, Sexuality Education Goals Met: Yes Target Goals Complete cessation of tobacco use (1). Psychosocial Date: May 30, 2018 Assessment: Followup/Discharge Psych Test (Initial/Discharge) Tool Used: CESD Score: 14 Intervention Physician Consult: No Physician Referral: No Med Change: No Stress Management Class: No Uses Stress Management Skills: Yes Education Education: Coping Techniques, S/S depression, Relaxation Techniques Education Goals Met: Yes Target Goal Assess presence or absence of depression using a valid screening tool (1). Maximize coping skills (2). Positive support system (2). Patient/Program Goal Preventative Medication: Yes Aspirin, Yes Clopidogrel, Yes Beta blockade, Yes Statin/OTR lipid Lowering Fall Risk Assess: Yes Assisstive Device: walker Provider Assessment Session Number: 16 Provider Assessment: Proceed with rehab Luca Terry RN May 30, 2018 15:44
== END 2018-06-05 ==
LOC: M CR 14:58
PROVIDERS: ATTEND Internal Medicine Cardiovascular Disease
DX: Z51.89 Encounter for other specified aftercare (principal); Z98.61 Coronary angioplasty status; Z95.1 Presence of aortocoronary bypass graft